=== PATIENT | female | born 1955 | race Caucasian/White ===

== ENCOUNTER 2023-01-09 10:50 | Observation (INO) | payer MEDICARE, SELFPAY ==
[2023-01-09] VITALS (10 sets, daily range): BP systolic 125–147; BP diastolic 48–95; PULSE 42–53; RESP 14–20; TEMP 36.2–36.6; O2SAT 95–99; BMI 39.6; BMI 43.2
--- NOTE | 2023-01-09 11:04 | EDS_ITS ---
HPI <MOI Naranjo - Last Filed: 01/09/23 13:23> HPI - Fall History of Present Illness Chief Complaint: Fall Narrative Narrative: 67-year-old female tripped in her kitchen 2 days ago and fell landing on her right hip. No head injury or LOC. She has been able to ambulate but is having increased pain in the hip. She also has pain in her right lower back. She has a history of multiple back surgeries. She took some old oxycodone she had which helped but she has run out. PFSH <MOI Naranjo - Last Filed: 01/09/23 13:23> [facility], [facility] Medical History (Updated 01/09/23 @ 12:52 by MOI Naranjo) History of heart attack HTN (hypertension) Home Medications gabapentin 600 mg tablet 600 mg PO QHS 05/31/15 [History Last Taken 01/08/23] levothyroxine 175 mcg tablet 175 mcg PO DAILY 05/31/15 [History Last Taken 01/09/23] sertraline 100 mg tablet 150 mg PO DAILY 05/31/15 [History Last Taken 01/08/23] aspirin 81 mg chewable tablet 81 mg PO DAILY HEART HEALTH 01/09/23 [History Last Taken 01/09/23] atorvastatin 40 mg tablet 40 mg PO DAILY CHOLESTEROL 01/09/23 [History Last Taken 01/08/23] clopidogrel 75 mg tablet 75 mg PO DAILY . 01/09/23 [History Last Taken 01/08/23] lisinopril 20 mg tablet 20 mg PO DAILY HTN 01/09/23 [History Last Taken 01/09/23] metoprolol tartrate 25 mg tablet 12.5 mg PO BID HTN 01/09/23 [History Last Taken 01/09/23] solifenacin 10 mg tablet 10 mg PO DAILY . 01/09/23 [History Last Taken 01/09/23] varenicline 1 mg tablet 1 mg PO BID . 01/09/23 [History Last Taken 01/09/23] Allergy/AdvReac Type Severity Reaction Status Date / Time adhesive Allergy Hives Verified 05/31/15 14:09 Surgical History (Updated 01/09/23 @ 11:07 by Clarissa Rosa) History of back surgery Stented coronary artery Social History Smoking Status: Former smoker ROS <MOI Naranjo - Last Filed: 01/09/23 13:23> ROS ED ROS Narrative Constitutional: Negative for fever, chills, malaise. CVS: Negative for chest pain, syncope. Respiratory: Negative for shortness of breath. GI: Negative for abdominal pain, nausea, vomiting. Neuro: Negative for motor/sensory dysfunction. Skin: Negative for wound. Musc: Positive for right hip pain, trauma. Heme: Negative for easy bruising, bleeding, lymphadenopathy. EXAM <MOI Naranjo Last Filed: 01/09/23 13:23> Physical Exam Narrative Exam Narrative: CONST: Patient sitting in no acute distress. EYES: Normal inspection. NECK: Normal inspection. RESP: No respiratory distress, CTAB. CVS: Regular rate and rhythm, no murmur, no gallop. Back: Normal inspection, no midline spinal tenderness or step-offs, right lumbar paraspinal and iliac crest tenderness. SKIN: Color normal, no rash, warm, dry, intact. EXTREMITIES: Normal appearance, tender palpation over right hip and pain with range of motion. No other tenderness of lower extremities, 5/5 strength throughout, normal sensation, 2+ DP pulses. NEURO: Oriented x4. PSYCH: Normal affect. Const Vital Signs: 01/09/23 10:50 01/09/23 11:07 01/09/23 13:14 Temperature 97.1 F L 97.8 F Temperature Source Temporal Oral Pulse Rate 50 L 43 L Respiratory Rate 20 H 15 Respiratory Effort Normal Non-Labored Blood Pressure 125/95 H 126/48 H Blood Pressure Mean 105 74 Pulse Ox 98 95 Oxygen Delivery Method Room Air <Dr. Chandra uJarez DO - Last Filed: 01/09/23 13:23> Physical Exam Const Vital Signs: 01/09/23 10:50 01/09/23 11:07 01/09/23 13:14 Temperature 97.1 F L 97.8 F Temperature Source Temporal Oral Pulse Rate 50 L 43 L Respiratory Rate 20 H 15 Respiratory Effort Normal Non-Labored Blood Pressure 125/95 H 126/48 H Blood Pressure Mean 105 74 Pulse Ox 98 95 Oxygen Delivery Method Room Air MDM <MOI Naranjo Last Filed: 01/09/23 13:23> MDM MDM Narrative Medical decision making narrative: Patient had a mechanical fall 2 days ago and is having increasing right hip and right low back pain. She has no bruising or external signs of trauma. There is tenderness over the right hip and right groin as well as right lower back. No midline spinal tenderness. Distal lower extremity MSPs are intact. X-ray right hip and pelvis show no acute fracture. After oxycodone patient was still only able to take about 5-10 steps with a walker and usually ambulates without assistive devices. She states she cannot go home as she has multiple stairs. Case will be discussed with the hospitalist for admission. I have personally performed a face to face assessment of the patient and have reviewed the SAMIRA Note. I performed a substantive portion of the visit including all aspects of the following. My aguliar findings include: History is [patient presents with complaint of right hip and back pain after sustaining a fall 2 days ago. Patient tells me she slipped in the kitchen and did the splits and fell onto her right side. She has been bearing weight but has become more painful. She took some Vicodin that she had at home for pain that seem to help her pain. She denies regular head or loss of consciousness. She denies other significant injuries. Patient is on Plavix.] Exam is [HEENT-PERRLA, EOMI. Cranial nerves II through XII grossly intact. TMs clear. Mucous membranes moist. No adenopathy. Cardiovascular-regular rate and rhythm without murmur or ectopy Lungs-clear to auscultation, chest wall stable without crepitus or subcu emphysema Abdomen-normoactive bowel sounds, soft, nontender, no rebound or rigidity, no peritoneal signs. Back exam-patient has healed scar from prior lumbar fusion. Minimal discomfort over the lumbar spine. No ecchymosis or bruising noted to her back. Patient has tenderness into the right groin. Extremities-right hip-patient has tenderness palpation over the right lateral hip as well as into the pubic ramus anteriorly. Patient has pain with flexion extension at the hip. Pain with logrolling. Neurovascular intact distally. Medical Decison Making [ ] Other additions or changes: [None] Radiography Diagnostic Testing: Clinical Impression(s) from Imaging Studies Hip/Pelvis X-Ray 01/09/23 11:07 IMPRESSION: 1. No visualized acute fracture or displaced bony fragment or avascular necrosis. Lumbar spine hardware with anchoring screws in the bilateral SI joints redemonstrated. Electronically Signed: Mat Mccain MD at 12:12 EST , Lumbar Spine X-Ray 01/09/23 11:09 IMPRESSION: Degenerative changes of the spine, as detailed above. Electronically Signed: Mat Mccain MD at 12:13 EST , <Dr. Chandra Juarez, DO - Last Filed: 01/09/23 13:23> [facility] Narrative Medical decision making narrative: Patient had a mechanical fall 2 days ago and is having increasing right hip and right low back pain. She has no bruising or external signs of trauma. There is tenderness over the right hip and right groin as well as right lower back. No midline spinal tenderness. Distal lower extremity MSPs are intact. X-ray right hip and pelvis show no acute fracture. After oxycodone patient was still only able to take about 5-10 steps with a walker and usually ambulates without assistive devices. She states she cannot go home as she has multiple stairs. Case will be discussed with the hospitalist for admission. I have personally performed a face to face assessment of the patient and have reviewed the SAMIRA Note. I performed a substantive portion of the visit including all aspects of the following. My aguilar findings include: History is [patient presents with complaint of right hip and back pain after sustaining a fall 2 days ago. Patient tells me she slipped in the kitchen and did the splits and fell onto her right side. She has been bearing weight but has become more painful. She took some Vicodin that she had at home for pain that seem to help her pain. She denies regular head or loss of consciousness. She denies other significant injuries. Patient is on Plavix.] Exam is [HEENT-PERRLA, EOMI. Cranial nerves II through XII grossly intact. TMs clear. Mucous membranes moist. No adenopathy. Cardiovascular-regular rate and rhythm without murmur or ectopy Lungs-clear to auscultation, chest wall stable without crepitus or subcu emphysema Abdomen-normoactive bowel sounds, soft, nontender, no rebound or rigidity, no peritoneal signs. Back exam-patient has healed scar from prior lumbar fusion. Minimal discomfort over the lumbar spine. No ecchymosis or bruising noted to her back. Patient has tenderness into the right groin. Extremities-right hip-patient has tenderness palpation over the right lateral hip as well as into the pubic ramus anteriorly. Patient has pain with flexion extension at the hip. Pain with logrolling. Neurovascular intact distally. Medical Decison Making [patient had x-rays of the lumbar spine as well as right hip and pelvis and no fractures noted. Patient did receive [place] 1 tablet. We attempted to ambulate the patient with a walker and normally she walks without any assistance however she was limited in being able to bear weight and was unable to walk to the bathroom. Patient does not feel comfortable going home as she has steps and does not feel she can manage. Case was discussed with hospitalist to evaluate patient for admission. I suspect patient may have a groin strain. Patient also noted to be bradycardic in the emergency department and she has a chronic history of this and states that normally her heart rates in the upper 40s.] Other additions or changes: [None] Radiography Diagnostic Testing: Clinical Impression(s) from Imaging Studies Hip/Pelvis X-Ray 01/09/23 11:07 IMPRESSION: 1. No visualized acute fracture or displaced bony fragment or avascular necrosis. Lumbar spine hardware with anchoring screws in the bilateral SI joints redemonstrated. Electronically Signed: Mat Mccain MD at 12:12 EST , Lumbar Spine X-Ray 01/09/23 11:09 IMPRESSION: Degenerative changes of the spine, as detailed above. Electronically Signed: Mat Mccain MD at 12:13 EST , Three-view x-rays right hip and pelvis obtained interpreted by myself as no acute fractures. Radiology was in agreement. Three-view x-rays of lumbar spine obtained interpreted by myself as prior lumbar fusion with no evidence of dislodgment of hardware. No obvious fractures. Significant degenerative changes. Radiology was in agreement. Discharge Plan Triage Chief Complaint: Fall ED Midlevel Provider: Maya Zambrano ED Provider: Chandra Juarez Dx/Rx/DC Orders Clinical Impression: Acute right hip pain, Strain of right groin, Accident due to mechanical fall without injury Prescriptions: No Action levothyroxine 175 MCG tablet 175 mcg PO DAILY gabapentin 600 MG tablet 600 mg PO QHS sertraline 100 MG tablet 150 mg PO DAILY atorvastatin 40 mg tablet 40 mg PO DAILY lisinopril 20 mg tablet 20 mg PO DAILY clopidogrel 75 mg tablet 75 mg PO DAILY aspirin 81 mg Tablet,Chewable 81 mg PO DAILY metoprolol tartrate 25 mg tablet 12.5 mg PO BID solifenacin 10 mg tablet 10 mg PO DAILY varenicline 1 mg tablet 1 mg PO BID Primary Care Provider: Meme Christie Referrals: Meme Christie MD [Primary Care Provider] -
--- NOTE | 2023-01-09 11:07 | RAD_ITS ---
STUDY: X-RAY - PELVIS AND RIGHT HIP REASON FOR EXAM: Female, 67 years old. Injury/Pain TECHNIQUE: 3 views of the pelvis and hip. COMPARISON: None. FINDINGS: No visualized acute fracture or displaced bony fragment or avascular necrosis. Lumbar spine hardware with anchoring screws in the bilateral SI joints redemonstrated. There is a non-specific bowel gas pattern. Normal visualized soft tissue structures. Normal bilateral iliac wings, sacroiliac joints and visualized sacrum. Normal bilateral superior and inferior pubic rami. There is narrowing with sclerosis of the pubic symphysis. Normal bilateral ischial tuberosities. Normal visualized femoral head. Normal acetabulum. There is mild articular joint space narrowing of the hip. RAD/HIP, UNI W/ Pelvis 2-3 Views IMPRESSION: 1. No visualized acute fracture or displaced bony fragment or avascular necrosis. Lumbar spine hardware with anchoring screws in the bilateral SI joints redemonstrated. Electronically Signed: Mat Mccain MD at 12:12 EST ,
--- NOTE | 2023-01-09 11:09 | RAD_ITS ---
STUDY: X-RAY - LUMBAR SPINE REASON FOR EXAM: Female, 67 years old. back pain TECHNIQUE: 2 view(s) of the lumbar spine were obtained. COMPARISON: None FINDINGS: Normal lumbar lordosis. There is no substantial scoliosis. There is a normal alignment of the vertebrae. Posterior fusion rods and pedicle screws with interbody grafts are present from L2 down to the lumbosacral junction with anchoring screws seen in the bilateral SI joints. No visualized hardware complications or displacement. Posterior decompressive defects noted as well as intertransverse bone graft. Mild disc space narrowing is present at L2-L3. Moderate disc space narrowing is present at T12-L1 and L1-L2 with reactive endplate sclerosis and spurring. No fracture or compression deformity or aggressive abnormality is seen. The soft tissue structures are unremarkable. RAD/Lumbar Spine 2 or 3 Views IMPRESSION: Degenerative changes of the spine, as detailed above. Electronically Signed: Mat Mccain MD at 12:13 EST ,
[2023-01-09] MEDS: oxyCODONE 5 MG Tablet PO ×2 (11:12→15:08)
--- NOTE | 2023-01-09 13:48 | PCM.HP.STD ---
HPI - General General Date of Admission: 01/09/23 Date of Service: 01/09/23 Chief Complaint: Fall HPI Narrative RITCHIE QUEEN, is a 67 F w/ hx of pulm HTN, CAD s/p PCI, history of back surgery, R shoulder and bilat knee surgery, as well as ISAMAR who presented to [facility] 01/09/23 due to increasing right hip and groin pain. She had a fall in her kitchen 2 days ago with socks on and reports she slipped and hit her right side and almost did the splits. In the ED she had lumbar and hip x-rays which showed no acute changes and hospitalist consulted for admission for placement. Evaluated in ED. She does endorse the fall 2 days ago and reports her pain in her groin radiates to her but it has been getting worse and is sharp mostly with her moving around and not very significant when she is laying still. Denies any changes in bowel or bladder. Has some deferred sensation below the knee on the right side but reports that that is been chronic since she got nerve damage after her surgery. Has a little bit of paraspinal back pain on the right but no other acute back pain. Denied hitting her head when she fell and denied loss of consciousness and reports it is purely mechanical fall. Has a lot of pain with internally rotating hip and is lying with it out. Has additional unrelated complaints of chronic shortness of breath with worsening since October when she had some kind of viral illness and reports this is waxed and waned and she has been on multiple prednisone bursts and her third round of antibiotics. Follows Dr. Layla Rangel for pulm and reports a history of pulmonary hypertension. [facility] Medical History (Updated 01/09/23 @ 14:[address] Michelle Gutiérrez MD) CAD (coronary artery disease) History of heart attack HTN (hypertension) Hypothyroidism Pulmonary HTN Home Medications gabapentin 600 mg tablet 600 mg PO QHS 05/31/15 [History Last Taken 01/08/23] levothyroxine 175 mcg tablet 175 mcg PO DAILY 05/31/15 [History Last Taken 01/09/23] sertraline 100 mg tablet 150 mg PO DAILY 05/31/15 [History Last Taken 01/08/23] albuterol sulfate 90 mcg/actuation aerosol inhaler 2 puff inhalation Q4H PRN PRN BREATHING 01/09/23 [History Last Taken Unknown] aspirin 81 mg chewable tablet 81 mg PO DAILY HEART HEALTH 01/09/23 [History Last Taken 01/09/23] atorvastatin 40 mg tablet 40 mg PO DAILY CHOLESTEROL 01/09/23 [History Last Taken 01/08/23] budesonide-formoterol HFA 160 mcg-4.5 mcg/actuation aerosol inhaler (Symbicort) 2 puff inhalation BID . 01/09/23 [History Last Taken 01/09/23] clopidogrel 75 mg tablet 75 mg PO DAILY . 01/09/23 [History Last Taken 01/08/23] doxycycline hyclate 100 mg capsule 100 mg PO BID . 01/09/23 [History Last Taken 01/09/23] lisinopril 20 mg tablet 20 mg PO DAILY HTN 01/09/23 [History Last Taken 01/09/23] metoprolol tartrate 25 mg tablet 12.5 mg PO BID HTN 01/09/23 [History Last Taken 01/09/23] prednisone 10 mg tablet See Rx Instructions .Route .COMPLEX . 01/09/23 [History Last Taken 01/09/23] solifenacin 10 mg tablet 10 mg PO DAILY . 01/09/23 [History Last Taken 01/09/23] varenicline 1 mg tablet 1 mg PO BID . 01/09/23 [History Last Taken 01/09/23] Allergy/AdvReac Type Severity Reaction Status Date / Time adhesive Allergy Hives Verified 05/31/15 14:09 Surgical History (Updated 01/09/23 @ 11:07 by Clarissa Rosa) History of back surgery Stented coronary artery Social History Smoking Status: Former smoker ROS ROS Narrative General: Chills sometimes HENT: Headaches for 6 months, slight stuffiness EYES: Wears glasses Resp: Productive cough with shortness of breath since October Cardiac: Denies chest pain GI: Denies abdominal pain, denies changes in bowel, denies nausea, denies vomiting : Denies changes in urination Extremity: Denies swelling MSK: General weakness Neuro: Has some decreased sensation on the right leg below the knee which she said is after her knee surgery Heme: Denies any bleeding or bruising Skin: Denies rashes Psychiatric: No complaints voiced Vital Signs Vital Signs Vital Signs: 01/09/23 10:50 01/09/23 11:07 01/09/23 13:14 Temperature 97.1 F L 97.8 F Temperature Source Temporal Oral Pulse Rate 50 L 43 L Respiratory Rate 20 H 15 Respiratory Effort Normal Non-Labored Blood Pressure 125/95 H 126/48 H Blood Pressure Mean 105 74 Pulse Ox 98 95 Oxygen Delivery Method Room Air 01/09/23 13:23 Temperature 97.8 F Temperature Source Oral Pulse Rate 43 L Respiratory Rate 15 Respiratory Effort Blood Pressure 126/48 H Blood Pressure Mean 74 Pulse Ox 98 Oxygen Delivery Method Room Air Weight Weight: 98.43 kg Body Mass Index (BMI) 39.6 Physical Exam Narrative General: Alert, oriented, no apparent distress HEENT: Atraumatic, normocephalic Eyes: Anicteric, normal conjunctiva, extraocular movements grossly intact Neck: Supple Respiratory: Slight increased respiratory effort, has some diffuse wheezing Cardiovascular: Regular rate and rhythm GI: Soft, nontender, nondistended Extremities: No edema Musculoskeletal: Laying in bed with left leg straight and right leg externally rotated at the hip, able to completely rotated internally but does so carefully and with significant pain. Unable to test strength due to pain. Pain improved with Riax internally rotating. Does have pain on palpation of groin. Neuro: No overt focal neurological deficits Skin: No rashes appreciated Psych: Cooperative Results Radiology Impression Hip/Pelvis X-Ray 01/09/23 11:07 IMPRESSION: 1. No visualized acute fracture or displaced bony fragment or avascular necrosis. Lumbar spine hardware with anchoring screws in the bilateral SI joints redemonstrated. Electronically Signed: Mat Mccain MD at 12:12 EST Reading Location ID and State: [facility] / [place] , Service support , Lumbar Spine X-Ray 01/09/23 11:09 IMPRESSION: Degenerative changes of the spine, as detailed above. Electronically Signed: Mat Mccain MD at 12:13 EST , Assessment & Plan Assessment/Plan (1) Acute right hip pain: PLAN: Plan #Intractable right hip pain after fall -X-ray hip and pelvis is well as lumbar spine with no acute changes -We will obtain MRI, patient has been on steroid bursts for several months and additionally has difficulty internally rotating hip and has significant difficulty bearing weight -Possible Ortho consult pending results -We will schedule Tylenol and as needed pain medication -Takes Robaxin as needed at home, will continue as needed Robaxin -Has some right paraspinal pain as well, will add topical -PT/OT #Coronary disease status post PCI -Most recent stent roughly 2 years ago -Continue beta-shai, aspirin, Plavix, statin #Pulmonary hypertension and ISAMAR -Continue home medications -BiPAP nightly with 2 L of O2 at home -Follows with Dr. Layla Rangel with [facility] on an outpatient basis #Upper respiratory symptoms -Has been on multiple prednisone burst and antibiotics without improvement in symptoms -Continue present prednisone dose and doxycycline Nebs #Hypothyroidism -TSH in the a.m. -Levothyroxine #Tobacco abuse -Recently quit is on Chantix, will continue #DVT ppx: Lovenox Michelle Gutiérrez MD Time spent in the patient's overall evaluation,decision-making process, review of diagnostic data, adjustment of management, discussion with other providers, nursing nursing and ancillary staff involved in patient's care documentation, 60 minutes Charges/Coding Visit Charges Inpatient E&M: 74370 Init Hosp L2
[2023-01-09 15:07] LABS: Absolute Lymphocyte Count 1.22 X10^3/uL (0.83-4.51); Absolute Neutrophil Count 5.5 X10^3/uL (2.0-7.7); Basophil# 0.03 X10^3/uL; Basophil% 0.4 % (0-1); Eosinophil# 0.06 X10^3/uL; Eosinophils% 0.8 % (0-5); Hemoglobin 12.9 g/dL (12.0-15.0); Lymphocyte # 1.22 X10^3/ul (0.83-4.51); Lymphocyte % 16.5 % (19-41); Mean Corp Hgb Conc 33.9 g/dL (32-36); Mean Corpuscular Hgb 33.7 pg (27.0-32.0); Mean Corpuscular Volume 99.2 fL (81-99); Monocyte% 6.8 % (0-10); NRBC Flagged by Analyzer 0 % (0-5); Neutrophil % 74.4 % (47-70); Platelet Count 169 K/mm3 (150-450); RBC Distribution Width CV 13.6 % (11.6-14.6); RBC Distribution Width SD 49.8 fl (35.1-43.9); Red Blood Count 3.83 M/mm3 (4.2-5.4); White Blood Count 7.4 K/mm3 (4.4-11.0)
[2023-01-09] MEDS: Acetaminophen 500 MG Tablet 1000 MG PO ×2 (15:08→22:20)
[2023-01-09] MEDS: Methocarbamol 750 MG Tablet PO (15:08)
[2023-01-09 15:24] LABS: ALB/GLOB Ratio 1.2 RATIO (0.9-2.4); AST(SGOT) 29 U/L (15-37); Alanine Aminotransfer ALT/SGPT 48 U/L (13-56); Albumin, Serum 3.5 g/dL (3.2-5.0); Alkaline Phosphatase 107 U/L (45-117); Anion Gap 7 (5-15); BUN 27 mg/dL (7-18); BUN/Creat Ratio 26.7 RATIO (10-20); Calcium,Total 9.4 mg/dL (8.5-10.1); Chloride 108 mmol/L (98-107); Creatinine, Serum 1.01 mg/dL (0.55-1.02); EST Glomerular Filtration Rate 58 mL/min (>60); Est Glom Filt Rate - Afr Amer 70 mL/min (>60); Estimated Creatinine Clearance 42.16 ml/min; Globulin 2.9 g/dL (2.2-4.2); Glucose 126 mg/dL (74-106); Magnesium 2.1 mg/dL (1.6-2.6); Potassium 4.7 mmol/L (3.5-5.1); Protein, Total 6.4 g/dL (6.4-8.2); Sodium Level 138 mmol/L (136-145)
[2023-01-09] MEDS: Ipratropium/Albuterol Sulfate 3 ML AMPUL.NEB INHALATION (20:05)
[2023-01-09] MEDS: Arthritis Pain Compound 60 CLICK TUBE TOPICAL (22:19)
[2023-01-09] MEDS: Doxycycline 100 MG CAPSULE PO (22:20)
[2023-01-09] MEDS: Atorvastatin Calcium 40 MG Tablet PO (22:20)
[2023-01-09] MEDS: Gabapentin 600 MG Tablet PO (22:20)
[2023-01-09] MEDS: Varenicline 1 MG Tablet PO (22:20)
[2023-01-10] VITALS (13 sets, daily range): BP systolic 122–148; BP diastolic 51–58; PULSE 41–62; RESP 14–20; TEMP 36.1–36.7; O2SAT 93–98
[2023-01-10] MEDS: Arthritis Pain Compound 60 CLICK TUBE TOPICAL ×3 (04:55→21:56)
[2023-01-10] MEDS: Levothyroxine 175 MCG Tablet PO (04:55)
[2023-01-10] MEDS: Acetaminophen 500 MG Tablet 1000 MG PO ×3 (04:55→21:55)
[2023-01-10] MEDS: 0.9% Saline Lock 10 ML Syringe IV ×4 (04:56→21:56)
[2023-01-10 05:28] LABS: Absolute Lymphocyte Count 3.05 X10^3/uL (0.83-4.51); Absolute Neutrophil Count 4.1 X10^3/uL (2.0-7.7); Basophil# 0.04 X10^3/uL; Basophil% 0.5 % (0-1); Eosinophil# 0.14 X10^3/uL; Eosinophils% 1.8 % (0-5); Hematocrit 40.2 % (37-47); Hemoglobin 13.4 g/dL (12.0-15.0); Lymphocyte # 3.05 X10^3/ul (0.83-4.51); Lymphocyte % 38.1 % (19-41); Mean Corp Hgb Conc 33.3 g/dL (32-36); Mean Corpuscular Hgb 33.6 pg (27.0-32.0); Mean Corpuscular Volume 100.8 fL (81-99); Mean Platelet Vol. 10.9 fl (6.2-12.0); Monocyte# 0.56 X10^3/uL; NRBC Flagged by Analyzer 0 % (0-5); Neutrophil # 4.08 X10^3/uL (2.7-7.7); Platelet Count 183 K/mm3 (150-450); RBC Distribution Width CV 13.8 % (11.6-14.6); RBC Distribution Width SD 51.4 fl (35.1-43.9); Red Blood Count 3.99 M/mm3 (4.2-5.4)
[2023-01-10 05:52] LABS: Anion Gap 8 (5-15); BUN 30 mg/dL (7-18); BUN/Creat Ratio 28.6 RATIO (10-20); Calcium,Total 9.4 mg/dL (8.5-10.1); Chloride 109 mmol/L (98-107); Creatinine, Serum 1.05 mg/dL (0.55-1.02); EST Glomerular Filtration Rate 55 mL/min (>60); Est Glom Filt Rate - Afr Amer 67 mL/min (>60); Estimated Creatinine Clearance 40.56 ml/min; Glucose 104 mg/dL (74-106); Potassium 4.1 mmol/L (3.5-5.1); Sodium Level 140 mmol/L (136-145); Thyroid Stim Hormone (TSH) 1.36 uIU/mL (0.358-3.74)
--- NOTE | 2023-01-10 07:00 | EKG12_ITS ---
Test Reason : Blood Pressure : / mmHG Vent. Rate : 043 BPM Atrial Rate : 043 BPM P-R Int : 166 ms QRS Dur : 086 ms QT Int : 502 ms P-R-T Axes : 006 054 039 degrees QTc Int : 424 ms Marked sinus bradycardia Confirmed by JOANN SR, MADAI ([id number]), copy editor CLAIRE JENSEN ([id number]) on 01/12/2023 8:03:31 AM Referred By: AMBAR Confirmed By:MADAI DAVID MD
--- NOTE | 2023-01-10 07:03 | PN.HOSP_ITS ---
Reason for Visit Reason for Visit: Diagnoses Pain in right hip (01/09/23) Subjective Subjective Still having a lot of pain and intermittently still has headache which she has had for 6 months. Denies change in pain. Reports she does not think her breathing is any different. Objective Data Objective Data Vital Signs: Vital Signs Temp Pulse Resp BP Pulse Ox O2 Del Method FiO2 96.9 F L 43 L 20 H 148/54 H 97 Room Air 25 01/10/23 04:59 01/10/23 04:59 01/10/23 04:59 01/10/23 04:59 01/10/23 04:59 01/10/23 04:59 01/10/23 02:28 Oxygen Delivery Method Room Air Weight: 107.139 kg Body Mass Index (BMI) 43.2 Intake & Output: Intake and Output for Last 24 Hours 01/08/23 01/09/23 01/10/23 23:59 23:59 23:59 Intake Total 100 / 100 Output Total 900 / 900 Balance -800 / -800 Lab / Micro Data Result Diagrams: 01/10/23 05:15 01/10/23 05:15 Labs: Laboratory Results - last 24 hr 01/09/23 14:50: WBC 7.4, RBC 3.83 L, Hgb 12.9, Hct 38.0, MCV 99.2 H, MCH 33.7 H, MCHC 33.9, RDW Std Deviation 49.8 H, RDW Coeff of Arti 13.6, Plt Count 169, MPV 11.0, Immature Gran % (Auto) 1.100 H, Neut % (Auto) 74.4 H, Lymph % (Auto) 16.5 L, [place]oul[place] % (Auto) 6.8, Eos % (Auto) 0.8, Baso % (Auto) 0.4, Absolute Neuts (auto) 5.5, Absolute Lymphs (auto) 1.22, Nucleated RBC % 0 01/09/23 14:50: Sodium 138, Potassium 4.7, Chloride 108 H, Carbon Dioxide 23.0, Anion Gap 7, BUN 27 H, Creatinine 1.01, Estim Creat Clear Calc 42.16, Est GFR (MDRD) Af Amer 70, Est GFR (MDRD) Non-Af 58 L, BUN/Creatinine Ratio 26.7 H, Glucose 126 H, Calcium 9.4, Magnesium 2.1, Total Bilirubin 0.40, AST 29, ALT 48, Alkaline Phosphatase 107, Total Protein 6.4, Albumin 3.5, Globulin 2.9, Albumin/Globulin Ratio 1.2 01/10/23 05:15: WBC 8.0, RBC 3.99 L, Hgb 13.4, Hct 40.2, MCV 100.8 H, MCH 33.6 H , MCHC 33.3, RDW Std Deviation 51.4 H, RDW Coeff of Arti 13.8, Plt Count 183, MPV 10.9, Immature Gran % (Auto) 1.600 H, Neut % (Auto) 51.0, Lymph % (Auto) 38.1, [place] % (Auto) 7.0, Eos % (Auto) 1.8, Baso % (Auto) 0.5, Absolute Neuts (auto) 4.1, Absolute Lymphs (auto) 3.05, Nucleated RBC % 0 01/10/23 05:15: Sodium 140, Potassium 4.1, Chloride 109 H, Carbon Dioxide 23.0, Anion Gap 8, BUN 30 H, Creatinine 1.05 H, Estim Creat Clear Calc 40.56, Est GFR (MDRD) Af Amer 67, Est GFR (MDRD) Non-Af 55 L, BUN/Creatinine Ratio 28.6 H, Glucose 104, Calcium 9.4, TSH 1.36 Radiography Diagnostic Testing: Radiology Impression Hip/Pelvis X-Ray 01/09/23 11:07 IMPRESSION: 1. No visualized acute fracture or displaced bony fragment or avascular necrosis. Lumbar spine hardware with anchoring screws in the bilateral SI joints redemonstrated. Electronically Signed: Mat Mccain MD at 12:12 EST Reading Location ID and State: [address] [place] [address] , Service support , Lumbar Spine X-Ray 01/09/23 11:09 IMPRESSION: Degenerative changes of the spine, as detailed above. Electronically Signed: Mat Mccain MD at 12:13 EST , Physical Exam Narrative General: Alert, oriented, appears uncomfortable, just being wheeled back from MRI HEENT: Atraumatic, normocephalic Eyes: Anicteric, normal conjunctiva, extraocular movements grossly intact Neck: Supple Respiratory: Slight increased respiratory effort, has some diffuse wheezing Cardiovascular: Regular rate and rhythm GI: Soft, nontender, nondistended Extremities: No edema Musculoskeletal: Still has pain with movement of her hip Neuro: No overt focal neurological deficits Skin: No rashes appreciated Psych: Cooperative Assessment & Plan Assessment/Plan (1) Acute right hip pain: PLAN: Plan #Intractable right hip pain after fall -X-ray hip and pelvis is well as lumbar spine with no acute changes -We will obtain MRI, patient has been on steroid bursts for several months and additionally has difficulty internally rotating hip and has significant difficul ty bearing weight -Possible Ortho consult pending results -We will schedule Tylenol and as needed pain medication -Takes Robaxin as needed at home, will continue as needed Robaxin -Has some right paraspinal pain as well, will add topical -PT/OT -3: Pain control, MRI of her hip ordered and she has stress fracture/injury of bilateral femoral necks. Orthopedic consulted #Coronary disease status post PCI -Most recent stent roughly 2 years ago -Continue beta-shai, aspirin, Plavix, statin -01/10: EKG ordered due to heart rate persistently in 40s and metoprolol has holding parameters. Asymptomatic, EKG showed sinus bradycardia with no blocks. #Pulmonary hypertension and ISAMAR -Continue home medications -BiPAP nightly with 2 L of O2 at home -Follows with Dr. Layla Rangel with [facility] on an outpatient basis #Upper respiratory symptoms -Has been on multiple prednisone burst and antibiotics without improvement in symptoms -Continue present prednisone taper and doxycycline -Nebs #Hypothyroidism -TSH within normal limits -Levothyroxine #Tobacco abuse -Recently quit is on Chantix, will continue #DVT ppx: Lovenox Michelle Gutiérrez MD Time spent in the patient's overall evaluation,decision-making process, review of diagnostic data, adjustment of management, discussion with other providers, nursing nursing and ancillary staff involved in patient's care documentation, 36 minutes Charges/Coding Visit Charges Inpatient E&M: 37142 Subs Hosp L2
[2023-01-10] MEDS: Albuterol 2.5 MG/3 ML VIAL.NEB. INHALATION (07:39)
[2023-01-10] MEDS: oxyCODONE 5 MG Tablet PO ×2 (10:22→17:53)
[2023-01-10] MEDS: Aspirin 81 MG TAB.CHEW PO (10:22)
[2023-01-10] MEDS: Lisinopril 20 MG Tablet PO (10:22)
[2023-01-10] MEDS: Tolterodine Tartrate 4 MG CAP.SA PO (10:22)
[2023-01-10] MEDS: Doxycycline 100 MG CAPSULE PO ×2 (10:22→21:55)
[2023-01-10] MEDS: Clopidogrel Bisulfate 75 MG Tablet PO (10:22)
[2023-01-10] MEDS: Methocarbamol 750 MG Tablet PO ×2 (10:22→17:53)
[2023-01-10] MEDS: Enoxaparin 40 MG/0.4 ML Syringe SC (10:23)
[2023-01-10] MEDS: Varenicline 1 MG Tablet PO ×2 (10:23→21:55)
[2023-01-10] MEDS: Sertraline 100 MG Tablet 150 MG PO (10:23)
[2023-01-10] MEDS: predniSONE 10 MG Tablet PO (10:24)
[2023-01-10] MEDS: Senna/Docusate Sodium 1 Tablet 2 TABLET PO (10:26)
--- NOTE | 2023-01-10 10:45 | MRI_ITS ---
STUDY: MRI RIGHT HIP REASON FOR EXAM: Female, 67 years old. Severe RIGHT hip pain, unable to bear weight TECHNIQUE: Standardized fat and water weighted pulse sequences were obtained in all 3 orthogonal planes. COMPARISON: X-ray from January 09, 2023 FINDINGS: Normal hip joint without articular joint space narrowing. There is small joint effusion. Normal acetabulum. Normal labrum. Normal femoral head. There is marrow edema of the right and left femoral necks, series 2 image 23/40. Normal gluteus minimus, medius and iliopsoas tendons and distal insertions. There is no trochanteric, iliopsoas or iliopectineal bursitis. Normal superior and inferior pubic rami. There is arthritic change at the pubic symphysis. Normal ischial tuberosity. Normal origin of the hamstring tendons. Normal visualized iliac wing, sacroiliac joint, and sacral ala. Normal visualized soft tissue structures of the pelvis. Uterus is atrophic. Normal bladder. There is postoperative change of the lower lumbar spine with hardware and screws extending across the bilateral sacroiliac joints. MRI/Lower Ext Joint Only (Routine) IMPRESSION: Stress fracture/injury of the bilateral femoral necks. Electronically Signed: Jimmy Kumar MD at 12:17 EST ,
[2023-01-10] MEDS: Lactated Ringers 1,000 ML 75 ML IV (11:52)
[2023-01-10] MEDS: Ipratropium/Albuterol Sulfate 3 ML AMPUL.NEB INHALATION ×2 (13:54→19:13)
[2023-01-10] MEDS: Atorvastatin Calcium 40 MG Tablet PO (21:55)
[2023-01-10] MEDS: Pramipexole Di-HCl 1 MG Tablet PO (21:55)
[2023-01-10] MEDS: Gabapentin 600 MG Tablet PO (21:55)
[2023-01-11] VITALS (11 sets, daily range): BP systolic 103–148; BP diastolic 49–66; PULSE 45–61; RESP 14–22; TEMP 36.4–36.8; O2SAT 21–98
[2023-01-11 05:26] LABS: Absolute Lymphocyte Count 1.83 X10^3/uL (0.83-4.51); Absolute Neutrophil Count 5.4 X10^3/uL (2.0-7.7); Basophil# 0.02 X10^3/uL; Basophil% 0.3 % (0-1); Eosinophil# 0.08 X10^3/uL; Hematocrit 37.3 % (37-47); Hemoglobin 12.4 g/dL (12.0-15.0); Lymphocyte # 1.83 X10^3/ul (0.83-4.51); Lymphocyte % 22.9 % (19-41); Mean Corp Hgb Conc 33.2 g/dL (32-36); Mean Corpuscular Hgb 33.5 pg (27.0-32.0); Mean Corpuscular Volume 100.8 fL (81-99); Mean Platelet Vol. 10.9 fl (6.2-12.0); Monocyte# 0.57 X10^3/uL; Monocyte% 7.1 % (0-10); NRBC Flagged by Analyzer 0 % (0-5); Neutrophil # 5.43 X10^3/uL (2.7-7.7); Neutrophil % 67.8 % (47-70); Platelet Count 177 K/mm3 (150-450); RBC Distribution Width CV 13.7 % (11.6-14.6); RBC Distribution Width SD 51.2 fl (35.1-43.9)
[2023-01-11] MEDS: Acetaminophen 500 MG Tablet 1000 MG PO ×2 (05:29→13:38)
[2023-01-11] MEDS: Levothyroxine 175 MCG Tablet PO (05:29)
[2023-01-11] MEDS: Arthritis Pain Compound 60 CLICK TUBE TOPICAL ×2 (05:29→13:38)
[2023-01-11 05:59] LABS: Anion Gap 7 (5-15); BUN 29 mg/dL (7-18); BUN/Creat Ratio 28.4 RATIO (10-20); Calcium,Total 9.3 mg/dL (8.5-10.1); Chloride 111 mmol/L (98-107); Creatinine, Serum 1.02 mg/dL (0.55-1.02); EST Glomerular Filtration Rate 57 mL/min (>60); Est Glom Filt Rate - Afr Amer 69 mL/min (>60); Estimated Creatinine Clearance 41.75 ml/min; Glucose 108 mg/dL (74-106); Potassium 4.1 mmol/L (3.5-5.1); Sodium Level 143 mmol/L (136-145)
[2023-01-11] MEDS: Ipratropium/Albuterol Sulfate 3 ML AMPUL.NEB INHALATION ×2 (06:49→13:14)
[2023-01-11] MEDS: Aspirin 81 MG TAB.CHEW PO (08:31)
[2023-01-11] MEDS: predniSONE 10 MG Tablet PO (08:31)
[2023-01-11] MEDS: oxyCODONE 5 MG Tablet PO ×2 (08:33→13:40)
[2023-01-11] MEDS: Methocarbamol 750 MG Tablet PO (08:34)
--- NOTE | 2023-01-11 09:53 | CONS.ORTHO ---
HPI Consult Data Date of Consult: 01/11/23 HPI Narrative Reason for Consultation: Right hip pain HPI Narrative: RITCHIE QUEEN, is a 67 F who presents with right hip and groin pain s/p fall on 01/07/23. X-rays in the ED were negative for fracture. However an MRI obtained by the hospitalist revealed edema of the b/l femoral necks. This would be concerning for stress fracture. She has multiple medical comorbidities, she is on Plavix among many other medications. She has a history of instrumented fusion of the lumbar spine and SI joints. She has also had right shoulder and bilateral knee procedures. At the time of my evaluation, PT was in the room. The patient was sitting up in bed. She reported no LBP. Minimal right hip pain at rest. She reported right hip/groin pain 10/10 with motion or attempted weight bearing. She denied N/T/P or radiation of the pain down the leg. COUNT INCLUDES THE [facility] Medical History CAD (coronary artery disease) History of heart attack HTN (hypertension) Hypothyroidism Pulmonary HTN Home Medications gabapentin 600 mg tablet 600 mg PO QHS 05/31/15 [History Last Taken 01/08/23] levothyroxine 175 mcg tablet 175 mcg PO DAILY 05/31/15 [History Last Taken 01/09/23] sertraline 100 mg tablet 150 mg PO DAILY 05/31/15 [History Last Taken 01/08/23] albuterol sulfate 90 mcg/actuation aerosol inhaler 2 puff inhalation Q4H PRN PRN BREATHING 01/09/23 [History Last Taken Unknown] aspirin 81 mg chewable tablet 81 mg PO DAILY HEART HEALTH 01/09/23 [History Last Taken 01/09/23] atorvastatin 40 mg tablet 40 mg PO DAILY CHOLESTEROL 01/09/23 [History Last Taken 01/08/23] budesonide-formoterol HFA 160 mcg-4.5 mcg/actuation aerosol inhaler (Symbicort) 2 puff inhalation BID . 01/09/23 [History Last Taken 01/09/23] clopidogrel 75 mg tablet 75 mg PO DAILY . 01/09/23 [History Last Taken 01/08/23] doxycycline hyclate 100 mg capsule 100 mg PO BID . 01/09/23 [History Last Taken 01/09/23] lisinopril 20 mg tablet 20 mg PO DAILY HTN 01/09/23 [History Last Taken 01/09/23] metoprolol tartrate 25 mg tablet 12.5 mg PO BID HTN 01/09/23 [History Last Taken 01/09/23] prednisone 10 mg tablet See Rx Instructions .Route .COMPLEX . 01/09/23 [History Last Taken 01/09/23] solifenacin 10 mg tablet 10 mg PO DAILY . 01/09/23 [History Last Taken 01/09/23] varenicline 1 mg tablet 1 mg PO BID . 01/09/23 [History Last Taken 01/09/23] ropinirole 2 mg tablet,extended release 24 hr 2 mg PO QHS 01/10/23 [History Last Taken Unknown] Allergy/AdvReac Type Severity Reaction Status Date / Time adhesive Allergy Hives Verified 05/31/15 14:09 Surgical History History of back surgery Stented coronary artery Social History Smoking Status: Former smoker ROS Constitutional Constitutional: Reports systems reviewed and no addt'l complaints, except as documented Eyes Eyes: Reports systems reviewed and no addt'l complaints, except as documented ENT HEENT: Reports systems reviewed and no addt'l complaints, except as documented Cardiovascular Cardiovascular: Reports systems reviewed and no addt'l complaints, except as documented Respiratory/Chest Respiratory/Chest: Reports systems reviewed and no addt'l complaints, except as documented Gastrointestinal Gastrointestinal: Reports systems reviewed and no addt'l complaints, except as documented Genitourinary Genitourinary: Reports systems reviewed and no addt'l complaints, except as documented Musculoskeletal Musculoskeletal: Reports systems reviewed and no addt'l complaints, except as documented Integumentary Integumentary: Reports systems reviewed and no addt'l complaints, except as documented Neurologic Neurologic: Reports systems reviewed and no addt'l complaints, except as documented Psychiatric Psychiatric: Reports systems reviewed and no addt'l complaints, except as documented Endocrine Endocrinology: Reports systems reviewed and no addt'l complaints, except as documented Hematologic/Lymphatic Hematologic/Lymphatic: Reports systems reviewed and no addt'l complaints, except as documented Allergic/Immunologic Allergic/Immunologic: Reports systems reviewed and no addt'l complaints, except as documented Vital Signs Vital Signs Vital Signs: 01/10/23 10:16 01/10/23 10:18 01/10/23 14:28 Temperature 97.3 F L 98.0 F Temperature Source Temporal Oral Pulse Rate 54 L 54 L 58 L Respiratory Rate 18 18 Respiratory Effort Respiratory Depth Respiratory Pattern Blood Pressure 124/51 H 127/58 H Blood Pressure Mean 75 81 Blood Pressure Source Monitor Monitor Blood Pressure Position Sitting Semi-Fowlers Blood Pressure Location Left Arm Left Arm Pulse Ox 96 93 Oxygen Delivery Method Room Air Room Air Fraction of Inspired Oxygen (FIO2) 01/10/23 14:28 01/10/23 13:54 01/10/23 19:14 Temperature Temperature Source Pulse Rate 62 54 L Respiratory Rate 17 20 H Respiratory Effort Normal Respiratory Depth Respiratory Pattern Normal Normal Blood Pressure Blood Pressure Mean Blood Pressure Source Blood Pressure Position Blood Pressure Location Pulse Ox Oxygen Delivery Method Fraction of Inspired Oxygen (FIO2) 01/10/23 19:15 01/10/23 21:51 01/10/23 21:56 Temperature 97.5 F L Temperature Source Oral Pulse Rate 53 L 53 L Respiratory Rate 18 Respiratory Effort Respiratory Depth Respiratory Pattern Blood Pressure 122/54 H 122/54 H Blood Pressure Mean 76 Blood Pressure Source Monitor Blood Pressure Position Semi-Fowlers Blood Pressure Location Left Forearm Pulse Ox 96 96 Oxygen Delivery Method Room Air Room Air Fraction of Inspired Oxygen (FIO2) 01/10/23 22:00 01/11/23 04:20 01/11/23 05:28 Temperature 97.5 F L Temperature Source Temporal Pulse Rate 48 L 52 L Respiratory Rate 22 H Respiratory Effort Normal Non-Labored Respiratory Depth Normal Respiratory Pattern Normal Blood Pressure 126/63 H Blood Pressure Mean 84 Blood Pressure Source Monitor Blood Pressure Position Semi-Fowlers Blood Pressure Location Left Arm Pulse Ox 21 96 Oxygen Delivery Method Room Air Bi-pap Bi-pap Fraction of Inspired Oxygen (FIO2) 01/10/23 20:30 01/11/23 00:30 01/11/23 03:28 Temperature Temperature Source Pulse Rate 52 L 48 L 45 L Respiratory Rate 18 21 H 20 H Respiratory Effort Respiratory Depth Respiratory Pattern Normal Normal Blood Pressure Blood Pressure Mean Blood Pressure Source Blood Pressure Position Blood Pressure Location Pulse Ox 98 97 98 Oxygen Delivery Method Fraction of Inspired Oxygen (FIO2) 25 25 25 01/11/23 06:49 01/11/23 06:49 01/11/23 08:29 Temperature 97.7 F L Temperature Source Oral Pulse Rate 59 L 61 Respiratory Rate 16 20 H Respiratory Effort Respiratory Depth Respiratory Pattern Normal Blood Pressure 148/66 H Blood Pressure Mean 93 Blood Pressure Source Monitor Blood Pressure Position Semi-Fowlers Blood Pressure Location Left Arm Pulse Ox 95 96 Oxygen Delivery Method Room Air Room Air Fraction of Inspired Oxygen (FIO2) Weight Weight: 236 lb 3.2 oz Body Mass Index (BMI) 43.2 Physical Exam Const alert and oriented x3 Constitutional Narrative: NAD while lying still HEENT normocephalic, head/scalp atraumatic, EAC's normal, TM's normal bilaterally, dentition normal and gingiva normal Eyes PERRL and EOMs intact bilaterally Neck supple General: trachea midline Lymph Lymphatic: no lymphadenopathy noted and no lymphedema noted Resp normal respiratory effort and no use of accessory muscles Effort and Inspection: able to speak in complete sentences Cardio regular rate and regular rhythm GI non-tender and non-distended Extremity normal capillary refill, no clubbing, cyanosis or edema and no calf tenderness Extremity Narrative: Pain in right hip/groin with logroll, WB not attempted. Leg lengths are equal. PTP at right lateral hip and right groin. Skin no rashes or lesions noted, no wounds and skin turgor normal Neuro CN's II-XII intact bilaterally Psych mental status grossly normal Lab / Micro Data Result Diagrams: 01/11/23 05:08 01/11/23 05:08 Labs: Laboratory Results - last 24 hr 01/11/23 05:08: WBC 8.0, RBC 3.70 L, Hgb 12.4, Hct 37.3, MCV 100.8 H, MCH 33.5 H, MCHC 33.2, RDW Std Deviation 51.2 H, RDW Coeff of Arti 13.7, Plt Count 177, MPV 10.9, Immature Gran % (Auto) 0.900, Neut % (Auto) 67.8, Lymph % (Auto) 22.9, Martin % (Auto) 7.1, Eos % (Auto) 1.0, Baso % (Auto) 0.3, Absolute Neuts (auto) 5.4, Absolute Lymphs (auto) 1.83, Nucleated RBC % 0 01/11/23 05:08: Sodium 143, Potassium 4.1, Chloride 111 H, Carbon Dioxide 25.0, Anion Gap 7, BUN 29 H, Creatinine 1.02, Estim Creat Clear Calc 41.75, Est GFR (MDRD) Af Amer 69, Est GFR (MDRD) Non-Af 57 L, BUN/Creatinine Ratio 28.4 H, Glucose 108 H, Calcium 9.3 Radiology Impression Lower Extremity MRI 01/10/23 10:45 IMPRESSION: Stress fracture/injury of the bilateral femoral necks. Electronically Signed: Jimmy Kumar MD at 12:17 EST , Assessment & Plan Assessment/Plan (1) Acute right hip pain: PLAN: Plan NWB to RLE Pain mgmt. per hospitalist PT to evaluate and treat Will attempt to treat this non-operatively Follow up at [facility] 7 days post discharge
[2023-01-11] MEDS: Varenicline 1 MG Tablet PO (10:14)
[2023-01-11] MEDS: Metoprolol Tartrate 25 MG Tablet 12.5 MG PO (10:14)
[2023-01-11] MEDS: Lisinopril 20 MG Tablet PO (10:14)
[2023-01-11] MEDS: Doxycycline 100 MG CAPSULE PO (10:16)
[2023-01-11] MEDS: Clopidogrel Bisulfate 75 MG Tablet PO (10:17)
[2023-01-11] MEDS: Enoxaparin 40 MG/0.4 ML Syringe SC (10:17)
[2023-01-11] MEDS: Tolterodine Tartrate 4 MG CAP.SA PO (10:17)
--- NOTE | 2023-01-11 11:23 | DCINST_ITS ---
Discharge Instructions Diet Discharge Diet: No restrictions Activity Discharge Activity: Return to Normal Activity Weight Bearing Status: Weight bearing as tolerated Dressing / Incision Call your doctor if you observe: Fever of 101 or Higher, Coldness, Increased Pain, Numbness or Tingling, Change in Color, Inability to urinate, Inability to have a bowel movement, Using more than 1 pad per hour, Shortness of breath, Dizziness, Fainting spells, Swelling in the ankles, Chest pain, Prolonged hiccupping, Increased palpitations (irregular heartbeat) and Calf discomfort Follow Up Care When: IN 2 WEEKS Test Results: Test results from this visit will be discussed in further detail at your follow- up appointment, if applicable. Discharge Plan Admission Admit Date/Time: 01/09/23 13:54 Primary Reason for Your Visit: Stress fracture of B/L hips Attending Provider: Uriah Donnelly Primary Care Provider: Meme Christie Consulting Providers: Godfrey Daniel ; Michelle Gutiérrez Discharge Orders/Prescriptions Prescriptions: New sennosides-docusate sodium [Stool Softener-Stimulant Laxat] 8.6-50 mg Tablet 2 tab PO BID PRN PRN (Reason: Constipation) Qty: 0 0RF oxycodone 5 mg Tablet 2.5 mg PO Q4H PRN PRN (Reason: Pain Score 4-10) 3 Days Qty: 10 0RF Rx Instructions: 2.5 mg for moderate pain 4-6/10 and 5 mg for severe pain 7 to 10 mg. metaxalone 400 mg tablet 400 mg PO TID PRN (Reason: muscle pain) Qty: 14 0RF Continued levothyroxine 175 MCG tablet 175 mcg PO DAILY gabapentin 600 MG tablet 600 mg PO QHS atorvastatin 40 mg tablet 40 mg PO DAILY lisinopril 20 mg tablet 20 mg PO DAILY clopidogrel 75 mg tablet 75 mg PO DAILY aspirin 81 mg Tablet,Chewable 81 mg PO DAILY metoprolol tartrate 25 mg tablet 12.5 mg PO BID solifenacin 10 mg tablet 10 mg PO DAILY varenicline 1 mg tablet 1 mg PO BID prednisone 10 mg tablet See Rx Instructions .ROUTE .COMPLEX Label Comments: Take 4 tablets by mouth once daily for 3 days, THEN 2 tablets once daily for 3 days, THEN 1 tablet once daily for 3 days. Take with food.. Rx Instructions: Take 4 tablets by mouth once daily for 3 days, THEN 2 tablets once daily for 3 days, THEN 1 tablet once daily for 3 days. Take with food. START DATE 12/31 doxycycline hyclate 100 mg capsule 100 mg PO BID Label Comments: TAKE 1 CAPSULE BY MOUTH TWICE DAILY FOR 10 DAYS albuterol sulfate 90 mcg/actuation HFA aerosol inhaler 2 puff INHALATION Q4H PRN PRN (Reason: BREATHING) budesonide-formoterol [Symbicort] 160-4.5 mcg/actuation HFA aerosol inhaler 2 puff INHALATION BID Label Comments: inhale 2 puffs BY MOUTH TWICE DAILY ropinirole 2 mg Tablet Extended Release 24 Hr 2 mg PO QHS Held sertraline 100 MG tablet 150 mg PO DAILY Hold Instructions: Hold while patient is taking metaxalone/Skelaxin Referrals / Follow Up: Meme Christie MD [Primary Care Provider] - Godfrey Daniel DO [Med Staff - Active Staff] - Within 1 Week Disposition Disposition (needs filled in before D/C Order can be placed): Home Health Service
--- NOTE | 2023-01-11 12:04 | CASEMGMT ---
MANA EVANGELISTA Assessment: Face to Face with pt for initial transition planning/care coordination assessment. RN TONJA introduced self and role at [facility], pt voices understanding and consents to assessment. Pt is A/O x4 and answers all questions appropriately at this time. Pt sitting up in chair in no distress. Care providers, pharmacy, and demographics verified/updated. Admitting Dx: inability to ambulate, R hip pain PCP:Shahnaz Specialists:Liz, neuro; Layla Rangel, pulm; Yandy, cardio Preferred Pharmacy: [facility] Insurance: [employer] [facility] Prescription Benefit: yes LNOK: Odin Santos, Living Arrangements: Pt lives with in a single story home with 3 steps to enter without a rail. Pt reports they have 2 planks that they use for a ramp to enter the home. Pt reports she was I in ADL's prior to hospitalization and her is able to assist. Transportation: Pt drives self and denies concerns with transportation. Pt able to assist until pt able to drive again. DME/HHC/SNF: Pt has a Bipap with oxygen at 2L through [employer]. , w/c, standard walker, FWW and pox. Pt has had HHC in the past but is unsure of which agency was used. Pt denies SNF stays and states she does not want to go to a SNF. Pt states no concerns with going home at time of dc. Pt is agreeable to having HHC in the home. Discussed expectations of this. Patient was provided a list of HHC providers including quality and resource use data and consistent with the patient?s preferred geographic region, medical needs, and insurance network were provided from the [facility] Guide. Pt to review and MANA EVANGELISTA to check back. Pt states no further concerns/needs. CM to follow. Advised pt to ask CM if any further question/concerns/needs arise, voices understanding. Pt Goal: Home with HHC Plan: Home with HHC
--- NOTE | 2023-01-11 12:19 | CASEMGMT ---
Social Work SW met w/pt briefly to inquire if she would like to consider going somewhere for rehab rather than going home. Pt states no, she is going home. She also states she thinks she can go home today. SW let pt know if she changes her mind, let her RN know and SW can return to review options. Pt states understanding. ANITHA Mercedes
--- NOTE | 2023-01-11 12:30 | CASEMGMT ---
Social Work As per admitting RN, pt indicated has LW/POA paperwork but is not able to bring in the documents. Pt indicated Odin Santos is POA. ANITHA Mercedes
--- NOTE | 2023-01-11 13:37 | CASEMGMT ---
Addendum entered by Parisa Mariano 01/11/23 15:48: [facility] and [facility] are unable to accept pt. Pt is agreeable to referral made to the rest of the agencies listed. Referrals sent via careport. TC linsey Jackson at [facility], they are able to see pt on Wednesday. MANA EVANGELISTA into pt room, she is agreeable to this. Addendum entered by Parisa Mariano 01/11/23 15:08: Pt aware that the C chosen are unable to see her. Pt has chosen [facility] then [facility] as next options. Referral sent to both at this time. Addendum entered by Parisa Mariano 01/11/23 14:47: Received messages that [facility] and [facility] are unable to accept pt for care. Referral sent to [facility] at this time. Original Note: MANA EVANGELISTA in to discuss CHUNG form with patient. MANA EVANGELISTA explained CHUNG form, patient voiced understanding. Pt signed form and filed in chart. Pt provided with a copy of signed CHUNG form. Patient had no further questions or concerns at this time. Pt states she would like to dc today. Updated hospitalist. Pt chose for [facility] 1.[facility] 2.[facility] 3.[facility]. Referrals sent to [facility] and [facility] at [facility] time [facility].
--- NOTE | 2023-01-11 15:01 | PCM.DC.SUM ---
Providers Date of Admission: 01/09/23 Date of Discharge: 01/11/23 Primary Care Physician: Dr. Meme Christie MD Consultations 01/10/23 13:29 Consult: Orthopedics Routine Consulting Provider: Godfrey Daniel Reason for Consult: Stress fracture/injury of the bilateral femoral necks EMERGENT Consult: No MD Notified: Yes Date Notified: 01/10/23 Time Notified: 15:50 Method of Notification: Verbal Reason For Visit: intractable hip pain Diagnosis Discharge Diagnosis (1) Acute right hip pain: Status: Acute Code(s): M25.551 - Pain in right hip Plan This is 59-year-old female with multiple comorbidities was admitted for severe right hip and groin pain after she fell in her kitchen 2 days prior to admission. She states she slipped and almost had a split. #Intractable right hip pain after fall: -X-ray hip and pelvis is well as lumbar spine with no acute changes -MRI shows edema of bilateral femoral neck. This was concerning for a stress fracture. She has history of instrumental fusion of lumbar spine and SI joints. History of bilateral TKR and right shoulder repair. Patient also on Plavix therefore orthopedic surgeon wanted to follow-up in 1 week in [facility]. If your pain Miraluma right hip groin 7-8/10 intensity. Patient was evaluated by PT and pain got better. She wants to go home with home health. Patient discharged on oxycodone and Skelaxin. Skelaxin has Dr. Mcclure interaction with sertraline which is held while patient is taking Skelaxin. Patient also on Neurontin and ropinirole which can give dizziness. Advised to take it at night. #Coronary disease status post PCI -Most recent stent roughly 2 years ago -Continue beta-shai, aspirin, Plavix, statin EKG ordered due to heart rate persistently in 40s and metoprolol has holding parameters.? Asymptomatic, EKG showed sinus bradycardia with no blocks. 6: Heart rate is improved in 50s. #Pulmonary hypertension and ISAMAR -Continue home medications -BiPAP nightly with 2 L of O2 at home -Follows with Dr. Layla Rangel with [facility] on an outpatient basis #Upper respiratory symptoms -Has been on multiple prednisone burst and antibiotics without improvement in symptoms -Continue present prednisone taper and doxycycline -Nebs #Hypothyroidism -TSH within normal limits -Levothyroxine #Tobacco abuse -Recently quit is on Chantix, and Chantix continued. #DVT ppx: Lovenox Discharge medication reconciliation done. Discharge follow-up instructions completed. Discharge process discussed with the patient and all questions were answered to patient's satisfaction. Total time spent, exact 35 minutes on discharge meds reconciliation, examination, coordination of care with nurses and ancillary staff, review of imaging and blood test and discussion with the patient on follow-up instructions. Medications at Discharge Home Medications gabapentin 600 mg tablet 600 mg PO QHS 05/31/15 levothyroxine 175 mcg tablet 175 mcg PO DAILY 05/31/15 sertraline 100 mg tablet 150 mg PO DAILY 05/31/15 albuterol sulfate 90 mcg/actuation aerosol inhaler 2 puff inhalation Q4H PRN PRN BREATHING 01/09/23 aspirin 81 mg chewable tablet 81 mg PO DAILY HEART HEALTH 01/09/23 atorvastatin 40 mg tablet 40 mg PO DAILY CHOLESTEROL 01/09/23 budesonide-formoterol HFA 160 mcg-4.5 mcg/actuation aerosol inhaler (Symbicort) 2 puff inhalation BID . 01/09/23 clopidogrel 75 mg tablet 75 mg PO DAILY . 01/09/23 doxycycline hyclate 100 mg capsule 100 mg PO BID . 01/09/23 lisinopril 20 mg tablet 20 mg PO DAILY HTN 01/09/23 metoprolol tartrate 25 mg tablet 12.5 mg PO BID HTN 01/09/23 prednisone 10 mg tablet See Rx Instructions .Route .COMPLEX . 01/09/23 solifenacin 10 mg tablet 10 mg PO DAILY . 01/09/23 varenicline 1 mg tablet 1 mg PO BID . 01/09/23 ropinirole 2 mg tablet,extended release 24 hr 2 mg PO QHS 01/10/23 metaxalone 400 mg tablet 400 mg PO TID PRN muscle pain #14 tabs 01/11/23 oxycodone 5 mg tablet 2.5 mg PO Q4H PRN PRN Pain Score 4-10 3 days #10 tabs 01/11/23 sennosides 8.6 mg-docusate sodium 50 mg tablet (Stool Softener-Stimulant Laxative) 2 tab PO BID PRN PRN Constipation #0 tabs 01/11/23 Physical Exam Narrative Physical exam General: Alert, Oriented x3, Cooperative HEENT: Atraumatic, PERRLA, EOMI, Normocephalic Oral: Oral mucosa moist. No Gingival or Mucosal Lesions/ Ulcerations Neck: Supple, No JVD, Negative Carotid Bruits Lungs: Air entry diminished in bilateral lung bases. No crepitation/rhonchi Cardiovascular: Regular rate, Regular Rhythm, Normal S1, Normal S2, No murmurs Abdomen: Bowel Sounds Present, Soft, Non Tender, Non-Distended : No renal angle tenderness. No suprapubic tenderness. Extremities: No edema, Capillary Refill Less than 3 Seconds Skin: No rashes, No breakdown Musculoskeletal: Tenderness present over right groin and hip region. Patient participated in PT and OT. Muscle sprain present over right groin region. Neurological: Cranial nerves II-XII grossly intact, DTR 2+/4 and Symmetrical, muscle strength decreased mainly in the right hip due to pain Psych/Mental Status: Flat affect Weight / BMI Weight Weight: 236 lb 3.2 oz Body Mass Index (BMI) 43.2 ABG / Lab / Microbiology Data Result Diagrams: 01/11/23 05:08 01/11/23 05:08 Laboratory: Laboratory Results - last 24 hr 01/11/23 05:08: WBC 8.0, RBC 3.70 L, Hgb 12.4, Hct 37.3, MCV 100.8 H, MCH 33.5 H, MCHC 33.2, RDW Std Deviation 51.2 H, RDW Coeff of Arti 13.7, Plt Count 177, MPV 10.9, Immature Gran % (Auto) 0.900, Neut % (Auto) 67.8, Lymph % (Auto) 22.9, [place] % (Auto) 7.1, Eos % (Auto) 1.0, Baso % (Auto) 0.3, Absolute Neuts (auto) 5.4, Absolute Lymphs (auto) 1.83, Nucleated RBC % 0 01/11/23 05:08: Sodium 143, Potassium 4.1, Chloride 111 H, Carbon Dioxide 25.0, Anion Gap 7, BUN 29 H, Creatinine 1.02, Estim Creat Clear Calc 41.75, Est GFR (MDRD) Af Amer 69, Est GFR (MDRD) Non-Af 57 L, BUN/Creatinine Ratio 28.4 H, Glucose 108 H, Calcium 9.3 D/C Instructions Discharge Diet: No restrictions Weight Bearing Status: Weight bearing as tolerated Call your doctor if you observe: Fever of 101 or Higher, Coldness, Increased Pain, Numbness or Tingling, Change in Color, Inability to urinate, Inability to have a bowel movement, Using more than 1 pad per hour, Shortness of breath, Dizziness, Fainting spells, Swelling in the ankles, Chest pain, Prolonged hiccupping, Increased palpitations (irregular heartbeat) and Calf discomfort When: IN 2 WEEKS Meaningful Use Info Meaningful Use Diagnoses (Choose all that apply): None applicable Discharge Plan Admission Admit Date/Time: 01/09/23 13:54 Primary Reason for Your Visit: Stress fracture of B/L hips Attending Provider: Uriah Donnelly Primary Care Provider: Meme Christie Consulting Providers: Godfrey Daniel ; Michelle Gutiérrez Discharge Orders/Prescriptions Prescriptions: New sennosides-docusate sodium [Stool Softener-Stimulant Laxat] 8.6-50 mg Tablet 2 tab PO BID PRN PRN (Reason: Constipation) Qty: 0 0RF oxycodone 5 mg Tablet 2.5 mg PO Q4H PRN PRN (Reason: Pain Score 4-10) 3 Days Qty: 10 0RF Rx Instructions: 2.5 mg for moderate pain 4-6/10 and 5 mg for severe pain 7 to 10 mg. metaxalone 400 mg tablet 400 mg PO TID PRN (Reason: muscle pain) Qty: 14 0RF Continued levothyroxine 175 MCG tablet 175 mcg PO DAILY gabapentin 600 MG tablet 600 mg PO QHS atorvastatin 40 mg tablet 40 mg PO DAILY lisinopril 20 mg tablet 20 mg PO DAILY clopidogrel 75 mg tablet 75 mg PO DAILY aspirin 81 mg Tablet,Chewable 81 mg PO DAILY metoprolol tartrate 25 mg tablet 12.5 mg PO BID solifenacin 10 mg tablet 10 mg PO DAILY varenicline 1 mg tablet 1 mg PO BID prednisone 10 mg tablet See Rx Instructions .ROUTE .COMPLEX Label Comments: Take 4 tablets by mouth once daily for 3 days, THEN 2 tablets once daily for 3 days, THEN 1 tablet once daily for 3 days. Take with food.. Rx Instructions: Take 4 tablets by mouth once daily for 3 days, THEN 2 tablets once daily for 3 days, THEN 1 tablet once daily for 3 days. Take with food. START DATE 12/31 doxycycline hyclate 100 mg capsule 100 mg PO BID Label Comments: TAKE 1 CAPSULE BY MOUTH TWICE DAILY FOR 10 DAYS albuterol sulfate 90 mcg/actuation HFA aerosol inhaler 2 puff INHALATION Q4H PRN PRN (Reason: BREATHING) budesonide-formoterol [Symbicort] 160-4.5 mcg/actuation HFA aerosol inhaler 2 puff INHALATION BID Label Comments: inhale 2 puffs BY MOUTH TWICE DAILY ropinirole 2 mg Tablet Extended Release 24 Hr 2 mg PO QHS Held sertraline 100 MG tablet 150 mg PO DAILY Hold Instructions: Hold while patient is taking metaxalone/Skelaxin Referrals / Follow Up: Meme Christie MD [Primary Care Provider] - Godfrey Daniel DO [Med Staff - Active Staff] - Within 1 Week Disposition Disposition (needs filled in before D/C Order can be placed): Home Health Service Charges/Coding Visit Charges Inpatient E&M: 40140 Disch Hosp >30min
== END 2023-01-11 16:50 | disposition home health service (06) ==
LOC: ED 11:52 → MS3 13:57
PROVIDERS: Admitting Provider Internal Medicine; Emergency Provider Emergency Medicine; PCP Internal Medicine; Visit Provider Internal Medicine
DX: M25.551 Pain in right hip (principal); I27.20 Pulmonary hypertension, unspecified; M54.50 Low back pain, unspecified; Z87.891 Personal history of nicotine dependence; I10 Essential (primary) hypertension; Z79.82 Long term (current) use of aspirin; R06.02 Shortness of breath; W01.10XA Fall on same level from slipping, tripping and stumbling with subsequent striking against unspecified object, initial encounter; M79.606 Pain in leg, unspecified; I25.10 Atherosclerotic heart disease of native coronary artery without angina pectoris; Z79.02 Long term (current) use of antithrombotics/antiplatelets; Z79.899 Other long term (current) drug therapy; I25.2 Old myocardial infarction; Y92.89 Other specified places as the place of occurrence of the external cause; G47.33 Obstructive sleep apnea (adult) (pediatric); E03.9 Hypothyroidism, unspecified; Z79.890 Hormone replacement therapy
CPT/HCPCS: 36415; 72100; 73502; 73721; 80048; 80053; 83735; 84443; 85025; 93005; 94002; 94003; 94640; 94668; 94762; 96360; 96361; 96372; 97116; 97162; 97165; 97530; 97535; 97802; 99221; 99283; J7120; A4216; G0378

== ENCOUNTER → 2023-01-21 | Outpatient (CLI) | payer MEDICARE, SELFPAY ==
--- NOTE | 2023-01-21 16:02 | VDLE_ITS ---
Reason For Study: pain RIGHT LEFT GSV is normal. GSV is normal. CFV is compressible, spontaneous, phasic, CFV is compressible, spontaneous, phasic, competent and demonstrates normal competent, and demonstrates normal augmentation. augmentation. FV is compressible, spontaneous, phasic, FV is compressible, spontaneous, phasic, competent and demonstrates normal competent and demonstrates normal augmentation. augmentation. POP V is compressible, spontaneous, phasic, POP V is compressible, spontaneous, phasic, competent and demonstrates normal competent and demonstrates normal augmentation. augmentation. T/P Trunk is compressible. T/P Trunk is compressible. PTV is compressible. PTV is compressible. RT PerV is compressible. LT PerV is compressible. Soleus V is dilated ad noncompressible. Procedure This is a venous duplex using B-mode, color flow and spectral Doppler. Exam performed in department. The exam was diagnostic. A preliminary report was called and/or faxed to Dr. Rosenthal and Dr. Christie. VL/Venous Duplex US - Valentino Extrem Interpretation Summary Acute deep venous thrombosis right soleus vein No evidence for acute deep venous thrombosis left lower extremity Patent and compressible bilateral great saphenous veins Ordering Physician: Brady Rosenthal Referring Physician: Meme Christie M.D. Performed By: Rafael William RVBlanche
== END | disposition home or self-care (01) ==
LOC: CVS 15:11
PROVIDERS: PCP Internal Medicine; Referring Provider Specialist; Visit Provider Specialist
DX: M79.662 Pain in left lower leg (principal); M79.661 Pain in right lower leg
CPT/HCPCS: 93970

== ENCOUNTER 2023-05-24 08:52 | Day surgery (SDC) | payer MEDICARE, SELFPAY ==
[2023-05-24] VITALS (7 sets, daily range): BP systolic 99–134; BP diastolic 49–94; PULSE 44–53; RESP 16–18; TEMP 36.6–36.9; O2SAT 94–98; BMI 42.3
[2023-05-24] MEDS: Lactated Ringers 1,000 ML 15 ML IV (09:31)
--- NOTE | 2023-05-24 09:50 | RAD_ITS ---
PROCEDURE: Cervical medial branch nerve block. DATE OF EXAMINATION: May 24, 2023 INDICATION: Female, 67 years old. Chronic neck pain. FLUOROSCOPY TIME (if supplied): 13 seconds. 4 images are submitted RAD/Cerv Spine 2 or 3 Views IMPRESSION: Intraoperative images are provided for intraforaminal needle positioning on the left at C3-4, C4-5, and C5-6. Electronically Signed: Anmol Sanchez MD at 13:16 EDT Reading Location ID and State: [id number] / Unknown , Service support ,
[2023-05-24] MEDS: MethylPREDNISolone Acetate 80 MG/ML Vial (10:36)
--- NOTE | 2023-05-24 10:42 | OP.PCM_ITS ---
Report of Operation Date of Procedure: 05/24/23 Description of Surgical Findings:: PREOPERATIVE DIAGNOSIS: Cervical spondylosis, cervical degenerative disc disease, cervical facet arthropathy POSTOPERATIVE DIAGNOSIS: Cervical spondylosis, cervical degenerative disc disease, cervical facet arthropathy PROCEDURE PERFORMED: Left-sided cervical medial branch block at C3, C4, C5, and C6. ANESTHESIA: MAC. BLOOD LOSS: Minimal. COMPLICATIONS: None. DESCRIPTION OF PROCEDURE: History and physical of today was reviewed. Risks and benefits of the procedure were explained. The patient understood and agreed to proceed. Informed consent was obtained. IV inserted per routine protocol. The patient was taken to the operating room and placed in the prone position with a pillow positioned underneath the chest. The neck area was prepped and draped in a sterile fashion using iodine x3. Under fluoroscopy guidance on an AP view, the C3 through C6 vertebral bodies were visualized at approximately 10- degree angle, starting on the left C3, ending on the left C6, passing through the C4 and C5. Using a 25-gauge 3-1/2-inch spinal needle, the needle was advanced via the skin. The tip of the needle was maneuvered and directed towards the epiphyseal junction of each corresponding vertebra. Once the tip of the needle was at the vicinity of the medial branch, the needle was pulled approximately 2 mm off the bone. After negative aspiration of blood or CSF and confirmation on AP, oblique as well as lateral view, a total of 4 mL of preservative-free 0.25% Marcaine with 80 mg of Depo-Medrol was injected in divided doses between those four levels. The needles were then removed intact. The patient experienced no sign or symptoms of intrathecal or intravascular injection. The patient experienced no paresthesia. The procedure was completed without any apparent difficulty or any complications. The patient appeared to tolerate it well. ASSESSMENT AND PLAN: This is a 67-year-old female with cervical spondylosis, cervical degenerative disc disease, cervical facet arthropathy status post left-sided cervical medial branch block at C3-C6, patient will continue her current medications, patient will follow in approximately 2 weeks for reevaluation.
== END 2023-05-24 11:30 | disposition home or self-care (01) ==
LOC: SDC 08:53 → AC 08:57
PROVIDERS: PCP Internal Medicine; Referring Provider Anesthesiology Pain Medicine; Visit Provider Anesthesiology Pain Medicine
PROC: 3E0S3BZ Introduction of Anesthetic Agent into Epidural Space, Percutaneous Approach (ICD-10-PCS; CPT 62322; principal; 2023-05-24 10:45)
DX: M47.812 Spondylosis without myelopathy or radiculopathy, cervical region (principal); M46.92 Unspecified inflammatory spondylopathy, cervical region; M50.30 Other cervical disc degeneration, unspecified cervical region; M48.02 Spinal stenosis, cervical region; G47.33 Obstructive sleep apnea (adult) (pediatric); I25.10 Atherosclerotic heart disease of native coronary artery without angina pectoris; E03.9 Hypothyroidism, unspecified; F41.9 Anxiety disorder, unspecified; F32.A Depression, unspecified; I10 Essential (primary) hypertension; I25.2 Old myocardial infarction; G25.81 Restless legs syndrome; Z79.82 Long term (current) use of aspirin; Z79.899 Other long term (current) drug therapy; Z87.891 Personal history of nicotine dependence; Z86.718 Personal history of other venous thrombosis and embolism; Z95.5 Presence of coronary angioplasty implant and graft
CPT/HCPCS: 64491; 01992; 64490; 72040; J7120

== ENCOUNTER 2023-08-09 09:10 | Day surgery (SDC) | payer MEDICARE, SELFPAY ==
[2023-08-09] VITALS (10 sets, daily range): BP systolic 87–141; BP diastolic 32–72; PULSE 55–70; RESP 16; TEMP 36.3–36.6; O2SAT 93–97; BMI 41.0
[2023-08-09] MEDS: Lactated Ringers 1,000 ML 15 ML IV (09:38)
--- NOTE | 2023-08-09 09:40 | RAD_ITS ---
INDICATION: MEDIAL BRANCH NERVE BLOCK C3-C6,RIGHT EXAMINATION/TECHNIQUE: X-RAY - XR Spine Cervical 2 or 3 Views COMPARISON: No relevant prior comparison study available FINDINGS: A radiopaque needle projects over the cervical spine over a lateral aspect at the C4 and C5 levels on these images. Total fluoroscopic time 9.2 seconds. 4 total images. Dose 2 mGy. RAD/Cerv Spine 2 or 3 Views IMPRESSION: Fluoroscopic guidance for cervical nerve block. Please refer to procedural report for further information.. Electronically Signed: Jordon Saab MD at 18:39 EDT ,
[2023-08-09] MEDS: MethylPREDNISolone Acetate 80 MG/ML Vial (10:52)
--- NOTE | 2023-08-09 10:56 | OP.PCM_ITS ---
Report of Operation Date of Procedure: 08/09/23 Description of Surgical Findings:: PREOPERATIVE DIAGNOSIS: Cervical spondylosis, cervical degenerative disc disease, cervical facet arthropathy POSTOPERATIVE DIAGNOSIS: Cervical spondylosis, cervical degenerative disc disease, cervical facet arthropathy PROCEDURE PERFORMED: Right sided cervical medial branch block at C3, C4, C5, and C6. ANESTHESIA: MAC. BLOOD LOSS: Minimal. COMPLICATIONS: None. DESCRIPTION OF PROCEDURE: History and physical of today was reviewed. Risks and benefits of the procedure were explained. The patient understood and agreed to proceed. Informed consent was obtained. IV inserted per routine protocol. The patient was taken to the operating room and placed in the prone position with a pillow positioned underneath the chest. The neck area was prepped and draped in a sterile fashion using iodine x3. Under fluoroscopy guidance on an AP view, the C3 through C6 vertebral bodies were visualized at approximately 10- degree angle, starting on the right C3, ending on the right C6, passing through the C4 and C5. Using a 25-gauge 3-1/2-inch spinal needle, the needle was advanced via the skin. The tip of the needle was maneuvered and directed towards the epiphyseal junction of each corresponding vertebra. Once the tip of the needle was at the vicinity of the medial branch, the needle was pulled approximately 2 mm off the bone. After negative aspiration of blood or CSF and confirmation on AP, oblique as well as lateral view, a total of 4 mL of preservative-free 0.25% Marcaine was injected in divided doses between those four levels. The needles were then removed intact. The patient experienced no sign or symptoms of intrathecal or intravascular injection. The patient experienced no paresthesia. The procedure was completed without any apparent difficulty or any complications. The patient appeared to tolerate it well. ASSESSMENT AND PLAN: This is a 68-year-old female with cervical spondylosis, cervical degenerative disc disease, cervical facet arthropathy status post right-sided cervical medial branch block at C3-C6, patient will continue her current medications, patient will follow in approximately 2 weeks for reevaluation.
[2023-08-09] MEDS: Ketorolac 15 MG/ML Vial IV ×2 (11:59→12:15)
== END 2023-08-09 13:19 | disposition home or self-care (01) ==
LOC: SDC 09:13 → AC 09:13
PROVIDERS: PCP Internal Medicine; Referring Provider Anesthesiology Pain Medicine; Visit Provider Anesthesiology Pain Medicine
PROC: 3E0S3BZ Introduction of Anesthetic Agent into Epidural Space, Percutaneous Approach (ICD-10-PCS; CPT 62322; principal; 2023-08-09 10:35)
DX: M47.812 Spondylosis without myelopathy or radiculopathy, cervical region (principal); M46.92 Unspecified inflammatory spondylopathy, cervical region; M50.30 Other cervical disc degeneration, unspecified cervical region; Z79.82 Long term (current) use of aspirin; Z79.899 Other long term (current) drug therapy
CPT/HCPCS: 64491; 01992; 64490; 72040; J7120

== ENCOUNTER 2023-09-27 09:15 | Day surgery (SDC) | payer MEDICARE, SELFPAY ==
[2023-09-27] VITALS (7 sets, daily range): BP systolic 89–166; BP diastolic 48–71; PULSE 53–62; RESP 16; TEMP 36.4–36.8; O2SAT 95–97; BMI 40.7
[2023-09-27] MEDS: Lactated Ringers 1,000 ML 15 ML IV (09:39)
--- NOTE | 2023-09-27 10:16 | RAD_ITS ---
STUDY: X-RAY - CERVICAL SPINE REASON FOR EXAM: Female, 68 years old. MEDIAL BRANCH NERVE BLOCK C3-C6, LEFT TECHNIQUE: 3 intraoperative view(s) of the cervical spine were obtained. 8 seconds of fluoroscopy, dose of 2.26 mgy COMPARISON: None FINDINGS: No intraoperative complications noted during left-sided C3-C6 nerve block. RAD/Cerv Spine 4 or 5 Views IMPRESSION: No intraoperative complications during left C3-C6 nerve block Electronically Signed: Anmol Burroughs MD at 12:17 EST ,
[2023-09-27] MEDS: MethylPREDNISolone Acetate 80 MG/ML Vial (10:20)
--- NOTE | 2023-09-27 10:26 | OP.PCM_ITS ---
Report of Operation Date of Procedure: 09/27/23 Description of Surgical Findings:: PREOPERATIVE DIAGNOSIS: Cervical spondylosis, cervical degenerative disc disease, cervical facet arthropathy POSTOPERATIVE DIAGNOSIS: Cervical spondylosis, cervical degenerative disc disease, cervical facet arthropathy PROCEDURE PERFORMED: Left-sided cervical medial branch block at C3, C4, C5, and C6. ANESTHESIA: MAC. BLOOD LOSS: Minimal. COMPLICATIONS: None. DESCRIPTION OF PROCEDURE: History and physical of today was reviewed. Risks and benefits of the procedure were explained. The patient understood and agreed to proceed. Informed consent was obtained. IV inserted per routine protocol. The patient was taken to the operating room and placed in the prone position with a pillow positioned underneath the chest. The neck area was prepped and draped in a sterile fashion using iodine x3. Under fluoroscopy guidance on an AP view, the C3 through C6 vertebral bodies were visualized at approximately 10- degree angle, starting on the left C3, ending on the left C6, passing through the C4 and C5. Using a 25-gauge 3-1/2-inch spinal needle, the needle was advanced via the skin. The tip of the needle was maneuvered and directed toward s the epiphyseal junction of each corresponding vertebra. Once the tip of the needle was at the vicinity of the medial branch, the needle was pulled approximately 2 mm off the bone. After negative aspiration of blood or CSF and confirmation on AP, oblique as well as lateral view, a total of 4 mL of preservative-free 0.25% Marcaine with 80 mg of Depo-Medrol was injected in divided doses between those four levels. The needles were then removed intact. The patient experienced no sign or symptoms of intrathecal or intravascular injection. The patient experienced no paresthesia. The procedure was completed without any apparent difficulty or any complications. The patient appeared to tolerate it well. ASSESSMENT AND PLAN: This is a 68-year-old female with cervical spondylosis, cervical degenerative disc disease, cervical facet arthropathy status post left-sided cervical medial branch block at C3-C6, patient will continue her current medications, patient will follow up in approximately 2 weeks for reevaluation.
== END 2023-09-27 11:00 | disposition home or self-care (01) ==
LOC: SDC 09:16 → AC 09:19
PROVIDERS: PCP Internal Medicine; Referring Provider Anesthesiology Pain Medicine; Visit Provider Anesthesiology Pain Medicine
PROC: 3E0S3BZ Introduction of Anesthetic Agent into Epidural Space, Percutaneous Approach (ICD-10-PCS; CPT 62322; principal; 2023-09-27 10:45)
DX: M47.812 Spondylosis without myelopathy or radiculopathy, cervical region (principal); M46.92 Unspecified inflammatory spondylopathy, cervical region; M50.30 Other cervical disc degeneration, unspecified cervical region; E03.9 Hypothyroidism, unspecified; F41.9 Anxiety disorder, unspecified; I10 Essential (primary) hypertension; F32.A Depression, unspecified; G25.81 Restless legs syndrome; Z79.82 Long term (current) use of aspirin; Z79.899 Other long term (current) drug therapy; Z86.718 Personal history of other venous thrombosis and embolism; Z87.891 Personal history of nicotine dependence
CPT/HCPCS: 64491; 01992; 64490; 72050; J7120

== ENCOUNTER → 2023-10-11 | Outpatient (CLI) | payer MEDICARE, SELFPAY | END | disposition home or self-care (01) | LOC: SL 20:01 | PROVIDERS: PCP Internal Medicine; Referring Provider Psychiatry & Neurology Sleep Medicine; Visit Provider Psychiatry & Neurology Sleep Medicine | DX: G47.33 Obstructive sleep apnea (adult) (pediatric) (principal) | CPT/HCPCS: 95810 ==

== ENCOUNTER 2024-03-13 06:06 | Day surgery (SDC) | payer MEDICARE, SELFPAY ==
[2024-03-13] VITALS (7 sets, daily range): BP systolic 100–155; BP diastolic 51–92; PULSE 65–80; RESP 16–18; TEMP 36.3–36.7; O2SAT 93–96; BMI 42.7
[2024-03-13] MEDS: Lactated Ringers 1,000 ML 15 ML IV (06:46)
--- NOTE | 2024-03-13 07:35 | RAD_ITS ---
PROCEDURE: Left C3-C6 radiofrequency ablation. DATE OF EXAMINATION: March 13, 2024. INDICATION: Female, 68 years old. Chronic neck pain. FLUOROSCOPY TIME (if supplied): (23 seconds) minutes/seconds. 4.34 mGy. 5 fluoroscopic images were submitted. RAD/Cerv Spine 4 or 5 Views IMPRESSION: Intraoperative imaging provided for left C3-C6 radiofrequency ablation. Electronically Signed: Ever James MD at 14:50 EDT ,
[2024-03-13] MEDS: Lidocaine 1% (30 ml sdv) 30 ML Vial (07:44)
[2024-03-13] MEDS: MethylPREDNISolone Acetate 40 MG/ML Vial (07:45)
--- NOTE | 2024-03-13 08:06 | PCM.OPRPT ---
Report of Operation Date of Procedure: 03/13/24 Description of Surgical Findings:: PREOPERATIVE DIAGNOSIS: Cervical spondylosis, cervical degenerative disc disease, cervical facet arthropathy POSTOPERATIVE DIAGNOSIS: Cervical spondylosis, cervical degenerative disc disease, cervical facet arthropathy PROCEDURE PERFORMED: Left-sided radiofrequency ablation of the medial branch at C3, C4, C5, C6. ANESTHESIA: MAC. BLOOD LOSS: Minimal. COMPLICATIONS: None. DESCRIPTION OF PROCEDURE: History and physical of today was reviewed. Risks and benefits of the procedure were explained. The patient understood and agreed to proceed. Informed consent was obtained. IV inserted per routine protocol. The patient was taken to the operating room and placed in the prone position with a pillow positioned underneath the chest. The neck area was prepped and draped in a sterile fashion using iodine x3. Under fluoroscopy guidance on an AP view, the C3 through C6 vertebral bodies were visualized. The skin and subcutaneous tissue was anesthetized with approximately 10 mL of 1% lidocaine using a 25-gauge regular needle. Under direct visualization on fluoroscopy on a lateral view, using a 21-gauge 10-cm with a 10-mm curved active-tip radiofrequency ablation needle, the needle was passed through the skin. The tip of the needle was maneuvered and directed towards the epiphyseal junction of each corresponding vertebra, starting on the left C3, ending on the left C6, passing through the C4 and C5. Once the tip of the needle was at the vicinity of the medial branch and at the middle of the trapezoid on the lateral view, the stylette of each needle was then removed. After negative aspiration of blood or CSF and confirmation on AP, oblique as well as lateral view, radiofrequency ablation probe was then inserted at each level. Impedance was then recorded at C3 to be 248 ohm, at C4 to be 265 ohm, at C5 to be 223 ohm, and at C6 to be 218 ohm. Motor-evoked potential was then initiated to 1.5 volt without any motor response to each corresponding level or the left arm. The probe was then removed intact and a total of 4 mL of preservative-free 1% lidocaine was injected in divided doses between those four levels after negative aspiration of blood or CSF. After repeated confirmation, the radiofrequency ablation probe was then inserted and after repeated confirmation on AP, oblique as well as lateral view, radiofrequency ablation was then initiated to approximately 80 degree Celsius for 60 second at each level. Once concluded, the probe was then removed intact. A total of 4 mL of preservative-free 0.25% Marcaine with 40 mg of Depo-Medrol was injected in divided doses between those four levels. The needles were then removed intact. The patient experienced no sign or symptoms of intrathecal or intravascular injection. The patient experienced no paresthesia. The procedure was completed without any apparent difficulty or any complications. The patient appeared to tolerate it well. Sensory as well as motor exam was unchanged from prior to the procedure. ASSESSMENT AND PLAN: This is a 68-year-old female with cervical spondylosis, cervical degenerative disc disease, cervical facet arthropathy status post left-sided cervical radiofrequency ablation of the medial branch at C3-C6, patient will continue her current medications, patient will follow in approximately 2 weeks for reevaluation.
== END 2024-03-13 08:54 | disposition home or self-care (01) ==
LOC: SDC 06:06 → AC 06:08
PROVIDERS: PCP Internal Medicine; Referring Provider Anesthesiology Pain Medicine; Visit Provider Anesthesiology Pain Medicine
PROC: (CPT 64633; principal; 2024-03-13 07:15)
DX: M47.812 Spondylosis without myelopathy or radiculopathy, cervical region (principal); J44.9 Chronic obstructive pulmonary disease, unspecified; M50.30 Other cervical disc degeneration, unspecified cervical region; M46.92 Unspecified inflammatory spondylopathy, cervical region; I25.10 Atherosclerotic heart disease of native coronary artery without angina pectoris; G47.33 Obstructive sleep apnea (adult) (pediatric); E03.9 Hypothyroidism, unspecified; I10 Essential (primary) hypertension; G25.81 Restless legs syndrome; Z95.5 Presence of coronary angioplasty implant and graft; Z87.891 Personal history of nicotine dependence; Z79.01 Long term (current) use of anticoagulants; Z79.899 Other long term (current) drug therapy; Z79.82 Long term (current) use of aspirin; Z79.51 Long term (current) use of inhaled steroids
CPT/HCPCS: 64633; 64634; 01992; 72050; 76000; J7120; J2405

== ENCOUNTER 2024-06-15 14:57 | Inpatient (IN) | payer MEDICARE, SELFPAY ==
[2024-06-15] VITALS (15 sets, daily range): BP systolic 129–186; BP diastolic 51–98; PULSE 48–82; RESP 18–24; TEMP 36.4–36.6; O2SAT 90–97; BMI 41.1; BMI 40.4
--- NOTE | 2024-06-15 15:06 | CT_ITS ---
STUDY: CT BRAIN WITHOUT CONTRAST REASON FOR EXAM: Female, 68 years old. altered mental status RADIATION DOSAGE (If Supplied By Facility): CTDIvol = ( 44.99 ) mGy, DLP = ( 863.60 ) mGycm TECHNIQUE: Transaxial CT imaging of the brain was performed without administration of intravenous contrast material. Individualized dose optimization techniques were used for this CT. COMPARISON: No relevant priors. FINDINGS: Normal soft tissue structures. Normal calvarium. Normal size ventricles and extra-axial spaces for the patient''s age. Moderate nonspecific periventricular white matter disease most likely chronic ischemic changes in patient of this age. Normal basal ganglia and thalami. Normal brainstem. Normal cerebellum. Empty sella deformity likely of no significance There is no intracranial hemorrhage. There are no findings of an acute ischemic infarction. Small polyp or mucous retention cyst in left maxillary sinus. Postsurgical changes of the orbits. CT/Brain/Head without Contrast IMPRESSION: Moderate periventricular white matter ischemic changes. No mass or acute bleed. If concern for acute infarct MRI recommended Electronically Signed: Benton Haro MD at 17:00 EDT ,
--- NOTE | 2024-06-15 15:06 | CT_ITS ---
STUDY: CT CHEST, ABDOMEN T PELVIS WITH CONTRAST REASON FOR EXAM: Female, 68 years old. Chest pain, back pain RADIATION DOSAGE (If Supplied By Facility): CTDIvol = ( 21.70 ) mGy, DLP = ( 3207.87 ) mGycm TECHNIQUE: Transaxial imaging was performed following intravenous administration of IV 100mL Isovue-370. Individualized dose optimization techniques were used for this CT. COMPARISON: No relevant priors. FINDINGS: CHEST The lungs are normal. There is no demonstrated pleural abnormality. Heart is mildly enlarged and there is coronary artery calcification. Subcentimeter mediastinal nodes likely benign. Normal hilar regions. Normal unenhanced pulmonary arteries. Atherosclerotic changes of the aorta without evidence for aneurysm Dorsal spine demonstrates advanced degenerative change. Right shoulder prosthesis is noted. ABDOMEN . Normal liver. Gallbladder has been removed surgically. Normal spleen. Normal pancreas. Normal bilateral adrenal glands. Normal right kidney. Normal left kidney. Normal visualized stomach. Normal small intestine. Minor diverticular changes of the descending and sigmoid colon without evidence for acute diverticulitis. No evidence for acute appendicitis. Atherosclerotic changes of the aorta without evidence for aneurysm. Normal inferior vena cava. Normal retroperitoneum. PELVIS Normal urinary bladder. There is no pelvic fluid. There is no pelvic lymphadenopathy or mass lesion. Normal visualized pelvic arteries. Normal abdominal wall. Lumbar spine demonstrates degenerative changes. Postsurgical changes status post multilevel posterior fusion spanning L2-S1 and bilateral sacroiliac fusion CT/CT Chest, Abd, Pel w/Contrast IMPRESSION: CT of the chest demonstrates ASHD without evidence for aortic aneurysm. No acute cardiopulmonary pathology CT of the abdomen and pelvis also demonstrated minor diverticular changes of the colon without evidence for acute diverticulitis. There is no evidence for acute abnormality status post cholecystectomy and multilevel spinal fusion the lumbar spine. Electronically Signed: Benton Haro MD at 17:13 EDT ,
--- NOTE | 2024-06-15 15:06 | EKG12_ITS ---
Test Reason : CP/SOB Blood Pressure : / mmHG Vent. Rate : 069 BPM Atrial Rate : 069 BPM P-R Int : 162 ms QRS Dur : 078 ms QT Int : 432 ms P-R-T Axes : 059 013 055 degrees QTc Int : 462 ms Normal sinus rhythm Normal ECG Confirmed by JENAE SR, SOCORRO ([id number]), greeting card editor JAN ALBERTO ([id number]) on 06/19/2024 8:44:34 AM Referred By: NATASHA/DRISS Confirmed By:ZO EMANUEL MD
[2024-06-15] MEDS: 0.9% Normal Saline (1000mL) 1,000 ML 1000 ML IV (15:10)
[2024-06-15 15:19] LABS: Bedside Glucose 83 mg/dL (74-106)
--- NOTE | 2024-06-15 15:20 | ED.VIS.DYS ---
HPI History of Present Illness Chief Complaint: Chest Pain Narrative Narrative: 68-year-old female presents with her because of decreased mental status, shortness of breath, and chest pain. History and physical is mildly limited secondary to patient condition. reports that she has past medical history of coronary artery disease with stenting. She states her symptoms began yesterday. reports that she laid in bed and slept all day. She slept through the evening, got up this morning, was able to walk out to the patio. He sat down with her, and she turned to room and told him that she thought that she needed to come to the hospital. She is a smoker. She states that she is having shortness of breath, chest pain, back pain, and headache. On the way to the hospital in the car, states that she went more unresponsive. While she remained awake, she would not respond to questions. [facility] Medical History Loss of hearing Wears glasses Post-menopausal Depression Anxiety Alcohol use Arthritis Bladder disease Low iron DVT (deep venous thrombosis) Restless legs Back pain Difficulty swallowing History of IBS Former smoker BiPAP (biphasic positive airway pressure) dependence COPD (chronic obstructive pulmonary disease) Shortness of breath on exertion Leg cramps History of pain when walking History of echocardiogram History of stress test Cardiology follow-up encounter Hypothyroidism Pulmonary HTN CAD (coronary artery disease) Strain of right groin Acute right hip pain History of heart attack HTN (hypertension) Home Medications ?Medication ?Instructions ?Recorded ?Last Taken ?Type gabapentin 600 mg tablet 600 mg PO QHS 05/31/15 03/12/24 History levothyroxine 175 mcg tablet 175 mcg PO DAILY 05/31/15 03/13/24 History sertraline 100 mg tablet 150 mg PO QHS 05/31/15 03/12/24 History albuterol sulfate 90 mcg/actuation 2 puff inhalation Q4H PRN PRN 01/09/23 03/13/24 History aerosol inhaler BREATHING aspirin 81 mg chewable tablet 81 mg PO DAILY HEART HEALTH 01/09/23 03/07/24 History atorvastatin 40 mg tablet 40 mg PO DAILY CHOLESTEROL 01/09/23 03/12/24 History budesonide-formoterol HFA 160 2 puff inhalation BID PRN .SOB 01/09/23 03/13/24 History mcg-4.5 mcg/actuation aerosol inhaler (Symbicort) clopidogrel 75 mg tablet 75 mg PO DAILY . 01/09/23 03/07/24 History lisinopril 20 mg tablet 20 mg PO DAILY HTN 01/09/23 03/13/24 History ropinirole 2 mg tablet,extended 2 mg PO QHS 01/10/23 03/12/24 History release 24 hr metaxalone 400 mg tablet 400 mg PO QHS muscle pain 05/21/23 03/12/24 History coenzyme Q10 10 mg capsule 10 mg PO DAILY 03/13/24 03/12/24 History pyridoxine (vitamin B6) 100 mg 100 mg PO DAILY 03/13/24 03/12/24 History tablet (Vitamin B-6) Allergy/AdvReac Type Severity Reaction Status Date / Time metaxalone (From [employer][a]list games) Allergy Intermediate Itching Verified 06/15/24 15:03 adhesive Allergy Hives Verified 06/15/24 15:03 Surgical History Hx of total knee arthroplasty Hx of total shoulder replacement Hx of appendectomy Hx laparoscopic cholecystectomy Hx of rotator cuff surgery Hx of elbow surgery History of back surgery Stented coronary artery Social History Smoking Status: Current every day smoker tobacco type: cigarettes ROS ROS ED ROS Narrative Limited secondary to patient condition. Partial history and review of systems obtained from . Constitutional: No fever, no chills. Slept all day yesterday and through the night. HEENT: No sore throat. No neck pain. No loss of vision. No rhinorrhea. Cardiovascular: Positive chest pain. No palpitations. No pedal edema. Respiratory: No cough, positive shortness of breath. Abdominal: No abdominal pain. No nausea. No vomiting. Genitourinary: No dysuria. No hematuria. Musculoskeletal: No myalgias. No arthralgias. Positive back pain. Neurologic: Positive headaches. No dizziness. No lightheadedness. Skin: No rash. No change in color. Psychiatric: No depression. No anxiety. EXAM Physical Exam Narrative Exam Narrative: Afebrile. Vital signs noted. Elevated blood pressure initially of 186/98, cardiovascular examination reveals regular rate and rhythm. She has diffuse wheezing throughout her bilateral lung david anteriorly and is moving a fair amount of air. Mild tachypnea. Abdomen soft nontender with normal active bowel sounds. Awakens to voice. Const Vital Signs: 06/15/24 14:59 06/15/24 15:35 06/15/24 15:35 Temperature 97.7 F L Temperature Source Axillary Pulse Rate 63 48 L Respiratory Rate 22 H 22 H Respiratory Effort Respiratory Pattern Blood Pressure 186/98 H Blood Pressure Mean 127 Pulse Ox 96 97 Oxygen Delivery Method Room Air Nasal Cannula Oxygen Flow Rate (L/min) 2 06/15/24 15:36 06/15/24 16:00 06/15/24 16:42 Temperature Temperature Source Pulse Rate 58 L 56 L Respiratory Rate 21 H 21 H Respiratory Effort Short of Breath Respiratory Pattern Blood Pressure 186/83 H 178/76 H Blood Pressure Mean 117 110 Pulse Ox 96 96 Oxygen Delivery Method Room Air Room Air Oxygen Flow Rate (L/min) 06/15/24 16:43 06/15/24 17:00 06/15/24 17:02 Temperature Temperature Source Pulse Rate 82 Respiratory Rate 24 H Respiratory Effort Short of Breath Respiratory Pattern Tachypnea Blood Pressure 166/79 H Blood Pressure Mean 108 Pulse Ox 96 94 Oxygen Delivery Method Room Air Room Air Nasal Cannula Oxygen Flow Rate (L/min) 2 06/15/24 17:02 06/15/24 17:41 06/15/24 17:52 Temperature Temperature Source Pulse Rate 62 69 74 Respiratory Rate 20 H 23 H 21 H Respiratory Effort Respiratory Pattern Blood Pressure 143/73 H 156/90 H Blood Pressure Mean 96 112 Pulse Ox 93 90 Oxygen Delivery Method Room Air Room Air Oxygen Flow Rate (L/min) 06/15/24 18:00 Temperature Temperature Source Pulse Rate 69 Respiratory Rate 18 Respiratory Effort Respiratory Pattern Blood Pressure 129/54 H Blood Pressure Mean 79 Pulse Ox 93 Oxygen Delivery Method Nasal Cannula Oxygen Flow Rate (L/min) 2 MDM MDM MDM Narrative Medical decision making narrative: Differential diagnosis includes but not limited to intracranial hemorrhage versus CO2 narcosis versus aortic dissection versus ACS. In review of her problem list, she does have coronary artery disease, pulmonary hypertension, and hypothyroidism. EKG was obtained and interpreted by myself independently as normal sinus rhythm at 69 bpm without ectopy or acute ST changes. No STEMI. ABG was obtained and reviewed. She has a pH of 7.41 with a pCO2 of 39, no CO2 narcosis, PaO2 of 65. I reviewed her laboratory work and she has a normal white count of 7.6, hemoglobin 15.0 with hematocrit 45.4. Platelet count normal at 188. Review of her CMP shows chloride elevated at 110 which I think is nonspecific, sodium normal at 140 with potassium 4.0, glucose is appropriate at 94 with normal anion gap of 5. Ammonia level is slightly elevated at 48. She does not have a history of cirrhosis and her LFTs show an AST of 28 and an ALT of 31, alk phos of 107. [id number] glucose is 83. Patient did require DuoNeb aerosolized treatment and additional albuterol. Repeat examination afterwards still shows her audibly wheezing. She was 94% on nasal cannula oxygen. This will be turned off to see if she desaturates and becomes hypoxic. Given her decreased mental status, I obtained a CT of the brain and there is no evidence of acute hemorrhage or mass. There are chronic periventricular white matter changes. Although I had initially ordered a chest x-ray it was not performed prior to the CT of the chest, abdomen, and pelvis to rule out aortic dissection. There is no evidence of aortic dissection on review of the radiology report, no pneumonia, no pneumothorax. CT of the abdomen and pelvis shows no evidence of diverticulitis or acute process as well. Patient became nauseated and was administered Zofran. I will administer her Solu-Medrol as I think she is probably having more of a COPD exacerbation. Given her decreased mental status, and audible wheezing, patient will be discussed with the hospitalist for admission. Patient complained of headache and neck pain so she was administered Tylenol 1 g orally. I am reluctant to give her narcotic for her pain as she had decreased mental status already and I do not want to suppress her respiratory drive as she is having a COPD exacerbation. Patient discussed with Dr. Sanderson for admission to the PCU. Patient is in stable condition. History & Record Review Discussion w/independent historian: Patient and Family Additional record(s) reviewed:: Prior ED visit (Noncontributory to current ED visit) Lab Data Attestation: I reviewed the patient's lab results. Labs: Laboratory Results - last 24 hr 06/15/24 06/15/24 06/15/24 15:01 15:11 17:23 WBC 7.6 RBC 4.55 Hgb 15.0 Hct 45.4 MCV 99.8 H MCH 33.0 H MCHC 33.0 RDW Std Deviation 46.1 H RDW Coeff of Arti 12.5 Plt Count 188 MPV 11.3 Immature Gran % (Auto) 0.400 Neut % (Auto) 66.8 Lymph % (Auto) 22.7 [place] % (Auto) 7.5 Eos % (Auto) 2.2 Baso % (Auto) 0.4 Absolute Neuts (auto) 5.1 Absolute Lymphs (auto) 1.72 Nucleated RBC % 0 Sodium 140 Potassium 4.0 Chloride 110 H Carbon Dioxide 25.0 Anion Gap 5 BUN 11 Creatinine 0.89 Estim Creat Clear Calc 66.70 Est GFR (MDRD) Af Amer 81 Est GFR (MDRD) Non-Af 67 BUN/Creatinine Ratio 12.4 Glucose 94 Calcium 9.5 Total Bilirubin 0.60 AST 28 ALT 31 Alkaline Phosphatase 107 Ammonia 48.0 H Troponin I High Sens 9 11 Total Protein 7.2 Albumin 3.8 Globulin 3.4 Albumin/Globulin Ratio 1.1 POC Glucose 83 ABG Data ABG results: ABG 06/15/24 15:22 Specimen Type ART Sample Site R Radial pH 7.42 Bicarbonate Actual 25.4 Total CO2 27 Base Excess 1 O2 Saturation 93 L ABG pCO2 39.3 ABG pO2 65 L Kwame Test Positive O2 Delivery Device Room Air Vent Mode Not entered Radiography Diagnostic Testing: Clinical Impression(s) from Imaging Studies Brain CT 06/15/24 15:06 IMPRESSION: Moderate periventricular white matter ischemic changes. No mass or acute bleed. If concern for acute infarct MRI recommended Electronically Signed: Benton Haro MD at 17:00 EDT , Chest/Abdomen/Pelvis CT 06/15/24 15:06 IMPRESSION: CT of the chest demonstrates ASHD without evidence for aortic aneurysm. No acute cardiopulmonary pathology CT of the abdomen and pelvis also demonstrated minor diverticular changes of the colon without evidence for acute diverticulitis. There is no evidence for acute abnormality status post cholecystectomy and multilevel spinal fusion the lumbar spine. Electronically Signed: Benton Haro MD at 17:13 EDT , Discharge Plan Dx/Rx/DC Orders Clinical Impression: CAD (coronary artery disease), COPD exacerbation, Wheezing, Chest pain, Mental status, decreased Disposition Disposition: Acute Care Hospital [facility]
[2024-06-15 15:25] LABS: Allen Test Positive; Base Excess 1 mmol/L (-2 to +2); Bicarbonate 25.4 mmol/L (22-26); Blood Gas Specimen Type ART; Mode Not entered; O2 Delivery Device Room Air; PO2 65 mmHG (75-100); SITE R Radial; SO2 93 % (95-99); Total Carbon Dioxide 27 mmol/L; pCO2 39.3 mmHg (35-45); pH 7.42 (7.35-7.45)
[2024-06-15 15:25] LABS: Absolute Lymphocyte Count 1.72 X10^3/uL (0.83-4.51); Absolute Neutrophil Count 5.1 X10^3/uL (2.0-7.7); Basophil# 0.03 X10^3/uL; Basophil% 0.4 % (0-1); Eosinophil# 0.17 X10^3/uL; Eosinophils% 2.2 % (0-5); Hematocrit 45.4 % (37-47); Lymphocyte # 1.72 X10^3/ul (0.83-4.51); Lymphocyte % 22.7 % (19-41); Mean Corpuscular Volume 99.8 fL (81-99); Mean Platelet Vol. 11.3 fl (6.2-12.0); Monocyte# 0.57 X10^3/uL; Monocyte% 7.5 % (0-10); NRBC Flagged by Analyzer 0 % (0-5); Neutrophil # 5.05 X10^3/uL (2.7-7.7); Neutrophil % 66.8 % (47-70); Platelet Count 188 K/mm3 (150-450); RBC Distribution Width CV 12.5 % (11.6-14.6); RBC Distribution Width SD 46.1 fl (35.1-43.9); Red Blood Count 4.55 M/mm3 (4.2-5.4); White Blood Count 7.6 K/mm3 (4.4-11.0)
[2024-06-15] MEDS: Ipratropium/Albuterol Sulfate 3 ML AMPUL.NEB INHALATION ×2 (15:35→20:55)
[2024-06-15 15:47] LABS: ALB/GLOB Ratio 1.1 RATIO (0.9-2.4); AST(SGOT) 28 U/L (15-37); Alanine Aminotransfer ALT/SGPT 31 U/L (13-56); Albumin, Serum 3.8 g/dL (3.2-5.0); Alkaline Phosphatase 107 U/L (45-117); Anion Gap 5 (5-15); BUN 11 mg/dL (7-18); BUN/Creat Ratio 12.4 RATIO (10-20); Calcium,Total 9.5 mg/dL (8.5-10.1); Chloride 110 mmol/L (98-107); Creatinine, Serum 0.89 mg/dL (0.55-1.02); EST Glomerular Filtration Rate 67 mL/min (>60); Est Glom Filt Rate - Afr Amer 81 mL/min (>60); Globulin 3.4 g/dL (2.2-4.2); Glucose 94 mg/dL (74-106); Protein, Total 7.2 g/dL (6.4-8.2); Sodium Level 140 mmol/L (136-145); Troponin-I HS (w/2H Reflex) 9 pg/mL (3.0-54.0)
[2024-06-15] MEDS: Ondansetron 4 MG/2 ML Vial IV (16:32)
[2024-06-15] MEDS: Albuterol 2.5 MG/3 ML VIAL.NEB. INHALATION (17:01)
[2024-06-15 17:18] LABS: Reflex Troponin-HS? (from REC) Y
[2024-06-15] MEDS: MethylPREDNISolone 125 MG/2 ML Vial IV (17:56)
[2024-06-15 17:59] LABS: Troponin-I HS 11 pg/mL (3.0-54.0)
--- NOTE | 2024-06-15 18:09 | PCM.HP.STD ---
HPI - General General Date of Admission: 06/15/24 Date of Service: 06/15/24 Chief Complaint: Altered mentation with neck pain, shortness of breath with wheezing HPI Narrative RITCHIE QUEEN, is a 68 F who presented to [facility] ED on 06/15/2024 with multiple concerns including altered mentation with neck pain and worsening shortness of breath with wheezing. brought patient into the ED. On arrival, patient was able to tell the ED physician her name but was unable to say where she was or what the year was. She was very fatigued appearing at that time and somewhat somnolent appearing. ABG was obtained and was normal, pH 7.42 and CO2 39. CBC and CMP were unremarkable. Ammonia level was found to be mildly elevated at [address] unclear reason[address] CT brain was nonacute. CTA chest abdomen pelvis was also essentially unremarkable. Patient did have audible wheezing on exam and was given a breathing treatment and a dose of IV steroids. Hospitalist was then contacted for admission. I saw the patient at bedside in the ED, present at bedside. Patient was laying back comfortably in bed but was very fatigued appearing and somewhat somnolent. She was hardly able to open her eyes for me but did tell me her name and that she was in the hospital. Did not know which hospital she was in or the year. She noted that she had a headache with neck pain and bilateral shoulder pain. She denied pain or discomfort anywhere else. She did note that she felt very tired. Per the , patient was out mowing the lawn and doing things around the house as recently as 3 days ago. He was concerned that she overdid it leading to significant fatigue. She has apparently had somewhat similar episodes in the past but not to this degree. She notably has history of chronic bilateral shoulder pain with 1 shoulder replacement and 1 shoulder repaired, with shoulder repair being sometime last year per the . She also has history of chronic neck pain and follows with Dr. Salvador with pain management. Has been notes that she receives pain injections with Dr. Morris and that last one was around 1 to 2 months ago he thinks. On chart review, she last saw Dr. Salvador on 03/13. He has diagnosis of cervical spondylosis, cervical DDD and cervical facet arthropathy. She had left-sided radiofrequency ablation of the medial branches of C3-C6 done at that time. She previously had left-sided cervical medial branch block done in September 2023 and right sided cervical medial branch block done in August 2023. Patient will be admitted for further management. [facility] Medical History Loss of hearing Wears glasses Post-menopausal Depression Anxiety Alcohol use Arthritis Bladder disease Low iron DVT (deep venous thrombosis) Restless legs Back pain Difficulty swallowing History of IBS Former smoker BiPAP (biphasic positive airway pressure) dependence COPD (chronic obstructive pulmonary disease) Shortness of breath on exertion Leg cramps History of pain when walking History of echocardiogram History of stress test Cardiology follow-up encounter Hypothyroidism Pulmonary HTN CAD (coronary artery disease) Strain of right groin Acute right hip pain History of heart attack HTN (hypertension) Home Medications ?Medication ?Instructions ?Recorded ?Last Taken ?Type gabapentin 600 mg tablet 600 mg PO QHS Neuropathy 05/31/15 03/12/24 History levothyroxine 175 mcg tablet 175 mcg PO DAILY Thyroid 05/31/15 03/13/24 History sertraline 100 mg tablet 150 mg PO QHS Depression 05/31/15 03/12/24 History albuterol sulfate 90 mcg/actuation 2 puff inhalation Q4H PRN PRN 01/09/23 03/13/24 History aerosol inhaler BREATHING aspirin 81 mg chewable tablet 81 mg PO DAILY HEART HEALTH 01/09/23 03/07/24 History atorvastatin 40 mg tablet 40 mg PO DAILY CHOLESTEROL 01/09/23 03/12/24 History budesonide-formoterol HFA 160 2 puff inhalation BID SOB 01/09/23 03/13/24 History mcg-4.5 mcg/actuation aerosol inhaler (Symbicort) clopidogrel 75 mg tablet 75 mg PO DAILY . 01/09/23 03/07/24 History lisinopril 20 mg tablet 20 mg PO DAILY HTN 01/09/23 03/13/24 History ropinirole 2 mg tablet,extended 2 mg PO QHS Restless legs 01/10/23 03/12/24 History release 24 hr metaxalone 400 mg tablet 400 mg PO QHS muscle pain 05/21/23 03/12/24 History coenzyme Q10 10 mg capsule 10 mg PO DAILY Supplement 03/13/24 03/12/24 History pyridoxine (vitamin B6) 100 mg 100 mg PO DAILY Supplement 03/13/24 03/12/24 History tablet (Vitamin B-6) ketorolac 0.5 % eye drops 1 drp ophthalmic (eye) TID 06/15/24 Unknown History Cataracts methocarbamol 500 mg tablet 500 - 1,000 mg PO TID PRN PRN 06/15/24 Unknown History Muscle spasms prednisolone acetate 1 % eye 1 drp ophthalmic (eye) TID 06/15/24 Unknown History drops,suspension Cataracts systane lubricant eye drop 1 drp ophthalmic (eye) 3XD 06/15/24 Unknown History Cataracts Allergy/AdvReac Type Severity Reaction Status Date / Time metaxalone (From Skelaxin) Allergy Intermediate Itching Verified 06/15/24 15:03 adhesive Allergy Hives Verified 06/15/24 15:03 Surgical History Hx of total knee arthroplasty Hx of total shoulder replacement Hx of appendectomy Hx laparoscopic cholecystectomy Hx of rotator cuff surgery Hx of elbow surgery History of back surgery Stented coronary artery Social History Smoking Status: Current every day smoker tobacco type: cigarettes ROS Constitutional Constitutional: Reports fatigue and weakness; Denies chills or fever(s) Eyes Eyes: Denies change in vision Cardiovascular Cardiovascular: Denies chest pain Respiratory/Chest Respiratory/Chest: Denies shortness of breath at rest Gastrointestinal Gastrointestinal: Denies abdominal pain Musculoskeletal Musculoskeletal: Reports other Details: Neck pain noted. ; Denies back pain Neurologic Neurologic: Reports headache(s); Denies dizziness Vital Signs Vital Signs Vital Signs: 06/15/24 14:59 06/15/24 15:35 06/15/24 15:35 Temperature 97.7 F L Temperature Source Axillary Pulse Rate 63 48 L Respiratory Rate 22 H 22 H Respiratory Effort Respiratory Pattern Blood Pressure 186/98 H Blood Pressure Mean 127 Pulse Ox 96 97 Oxygen Delivery Method Room Air Nasal Cannula Oxygen Flow Rate (L/min) 2 06/15/24 15:36 06/15/24 16:00 06/15/24 16:42 Temperature Temperature Source Pulse Rate 58 L 56 L Respiratory Rate 21 H 21 H Respiratory Effort Short of Breath Respiratory Pattern Blood Pressure 186/83 H 178/76 H Blood Pressure Mean 117 110 Pulse Ox 96 96 Oxygen Delivery Method Room Air Room Air Oxygen Flow Rate (L/min) 06/15/24 16:43 06/15/24 17:00 06/15/24 17:02 Temperature Temperature Source Pulse Rate 82 Respiratory Rate 24 H Respiratory Effort Short of Breath Respiratory Pattern Tachypnea Blood Pressure 166/79 H Blood Pressure Mean 108 Pulse Ox 96 94 Oxygen Delivery Method Room Air Room Air Nasal Cannula Oxygen Flow Rate (L/min) 2 06/15/24 17:02 06/15/24 17:41 06/15/24 17:52 Temperature Temperature Source Pulse Rate 62 69 74 Respiratory Rate 20 H 23 H 21 H Respiratory Effort Respiratory Pattern Blood Pressure 143/73 H 156/90 H Blood Pressure Mean 96 112 Pulse Ox 93 90 Oxygen Delivery Method Room Air Room Air Oxygen Flow Rate (L/min) 06/15/24 18:00 Temperature Temperature Source Pulse Rate 69 Respiratory Rate 18 Respiratory Effort Respiratory Pattern Blood Pressure 129/54 H Blood Pressure Mean 79 Pulse Ox 93 Oxygen Delivery Method Nasal Cannula Oxygen Flow Rate (L/min) 2 Weight Weight: 101.9 kg Body Mass Index (BMI) 41.1 Physical Exam Const alert and no apparent distress Constitutional Narrative: Elderly female, morbidly obese, alert but very fatigued and somewhat somnolent appearing, alert to person and place but not to time, otherwise laying back fairly comfortably in bed, in no acute distress. General Appearance: cooperative Orientation / Consciousness: lethargic HEENT normocephalic, head/scalp atraumatic, hearing grossly normal bilaterally and nasal mucous membranes and turbinates normal Eyes PERRL, EOMs intact bilaterally and conjunctivae normal Neck full ROM Chest inspection of chest normal Resp normal respiratory effort and no use of accessory muscles Resp Narrative: Breathing comfortably on 2 L nasal cannula at rest. Moderate moderate wheezing noted in upper airways bilaterally. No crackles noted. Otherwise fairly good air movement bilaterally throughout. Cardio regular rate, regular rhythm, no murmurs and peripheral pulses 2+ throughout GI normal to inspection, nondistended, normoactive bowel sounds, soft to palpation, non-tender and non-distended Back/Spine Back/Spine Narrative: Moderate pain noted with palpation of neck and bilateral paraspinal areas. Straight leg raise was negative bilaterally. Extremity normal to inspection and no pedal edema Results Lab / Micro Data 06/15/24 15:11 06/15/24 15:11 Labs: Laboratory Results - last 24 hr 06/15/24 15:01: POC Glucose 83 06/15/24 15:11: WBC 7.6, RBC 4.55, Hgb 15.0, Hct 45.4, MCV 99.8 H, MCH 33.0 H, MCHC 33.0, RDW Std Deviation 46.1 H, RDW Coeff of Arti 12.5, Plt Count 188, MPV 11.3, Immature Gran % (Auto) 0.400, Neut % (Auto) 66.8, Lymph % (Auto) 22.7, Barren % (Auto) 7.5, Eos % (Auto) 2.2, Baso % (Auto) 0.4, Absolute Neuts (auto) 5.1, Absolute Lymphs (auto) 1.72, Nucleated RBC % 0, Sodium 140, Potassium 4.0, Chloride 110 H, Carbon Dioxide 25.0, Anion Gap 5, BUN 11, Creatinine 0.89, Estim Creat Clear Calc 66.70, Est GFR (MDRD) Af Amer 81, Est GFR (MDRD) Non-Af 67, BUN/Creatinine Ratio 12.4, Glucose 94, Calcium 9.5, Total Bilirubin 0.60, AST 28, ALT 31, Alkaline Phosphatase 107, Ammonia 48.0 H, Troponin I High Sens 9, Total Protein 7.2, Albumin 3.8, Globulin 3.4, Albumin/Globulin Ratio 1.1 06/15/24 17:23: Troponin I High Sens 11 ABG Data ABG results: ABG 06/15/24 15:22 Specimen Type ART Sample Site R Radial pH 7.42 Bicarbonate Actual 25.4 Total CO2 27 Base Excess 1 O2 Saturation 93 L ABG pCO2 39.3 ABG pO2 65 L Kwame Test Positive O2 Delivery Device Room Air Vent Mode Not entered Imaging Radiology Impression Brain CT 06/15/24 15:06 IMPRESSION: Moderate periventricular white matter ischemic changes. No mass or acute bleed. If concern for acute infarct MRI recommended Electronically Signed: Benton Haro MD at 17:00 EDT , Chest/Abdomen/Pelvis CT 06/15/24 15:06 IMPRESSION: CT of the chest demonstrates ASHD without evidence for aortic aneurysm. No acute cardiopulmonary pathology CT of the abdomen and pelvis also demonstrated minor diverticular changes of the colon without evidence for acute diverticulitis. There is no evidence for acute abnormality status post cholecystectomy and multilevel spinal fusion the lumbar spine. Electronically Signed: Benton Haro MD at 17:13 EDT Reading Location ID and State: [facility] / [place] Tel , Service support , Assessment & Plan Assessment/Plan (1) Mental status, decreased: (2) COPD exacerbation: PLAN: Plan Patient is a 68-year-old female who presented [facility] ED on 06/15/2024 with worsening mentation and shortness of breath with exertion. 1. Acute metabolic encephalopathy, acute on chronic neck pain, elevated ammonia level ? Admit under inpatient status to PCU. Unclear etiology for acute encephalopathy at this time. Have some degree of concern for ORTHO TECH infection given encephalopathy of unclear origin with apparent worsening neck pain, but patient notably afebrile, hemodynamically stable and with no leukocytosis. Will obtain MRI brain and C-spine for further evaluation. Will hold on antibiotics for now. Unclear reason for elevated ammonia level; no underlying liver disease noted, LFTs normal on admit. Will start p.o. lactulose and monitor for bowel movements and any signs of improvement. UA ordered to rule out UTI. PT/OT/case management consulted. Speech therapy also consulted for both swallow evaluation and cognitive evaluation. N.p.o. status for now. Avoid sedating medications as able. 2. COPD exacerbation with mild hypoxia ? CTA chest with no acute findings but moderate wheezing noted on admission. Requiring 2 L nasal cannula to maintain oxygen saturations in the low 90s. Will treat for COPD exacerbation with IV steroids and scheduled DuoNebs for now. COVID/flu/RSV and respiratory PCR panel ordered. Wean supplemental oxygen as able. Chronic medical conditions: ? Morbid obesity with ISAMAR and pulmonary hypertension: BMI 40 on admit. Complicates hospital course, care and prognosis. Continue home PAP therapy at night and with naps while inpatient. ? CAD s/p stenting, hypertension, hyperlipidemia: Continue home aspirin, Plavix, statin. Holding home lisinopril for now, restart as needed. ? Chronic back and joint pains, anxiety, depression, RLS: Continue home sertraline. Will start home gabapentin and ropinirole at reduced doses on evening of 06/16. Holding home muscle relaxant. ? Hypothyroidism: TSH ordered. Continue home Synthroid. DVT prophylaxis: Lovenox CODE STATUS: Full code, verified Expected disposition: TBD Total clinical time spent by myself addressing the patient's medical issues, reviewing all the data, and collaborating with patient's care team: 55 minutes. Charges/Coding Visit Charges Inpatient E&M: 70519 Init Hosp L2
--- NOTE | 2024-06-15 18:15 | NURSING ---
PCU COPD MOSTELLER
[2024-06-15] MEDS: Acetaminophen 500 MG Tablet 1000 MG PO (18:22)
[2024-06-15 21:32] LABS: Thyroid Stim Hormone (TSH) 2.44 uIU/mL (0.358-3.74)
[2024-06-15] MEDS: Pramipexole Di-HCl 0.5 MG Tablet PO (21:46)
[2024-06-15] MEDS: Atorvastatin Calcium 40 MG Tablet PO (21:46)
[2024-06-15] MEDS: Sertraline 100 MG Tablet 150 MG PO (21:46)
[2024-06-15] MEDS: Ensure Plus High Protein 120 ML LIQUID PO (21:46)
[2024-06-15] MEDS: Lactulose 20 GM/30 ML UDC PO (21:46)
[2024-06-15] MEDS: prednisoLONE eye drops (5 mL) 1 DROP OPTH.BTL 1 DRP RIGHT EYE (21:47)
[2024-06-15 22:04] LABS: Bacteria 0 SEEN /hpf (None Seen); Mucous, Urine 0 SEEN /hpf (<or=2+); Red Blood Cells-Urine 0 SEEN /hpf (0-5); Squamous Epithelial Cells - UA 0 SEEN /hpf (5-10); White Blood Cells 0 SEEN /hpf (0-5)
[2024-06-15 22:06] LABS: Color, Urine Yellow (Yellow); Glucose, Dipstick Normal (Normal); Ketone-Dipstick Negative (Negative); Leukocyte Esterase-Dipstick Negative /ul (Negative); Nitrite-Dipstick Negative (Negative); Occult Blood-Urine Negative /ul (Negative); Protein-Dipstick Negative (Negative); Specific Gravity, Urine 1.005 (1.002-1.030); Urine Bilirubin Dipstick Negative (Negative); Urine Clarity Sl. Cloudy (Clear); Urine Urobilinogen Normal (Normal); Urine pH 6.5 (5.0 - 8.0)
[2024-06-15 22:13] LABS: Hyaline Cast 0-5 SEEN /lpf (0-5)
[2024-06-15] MEDS: Gabapentin 100 MG Capsule PO (23:33)
[2024-06-16] VITALS (10 sets, daily range): BP systolic 130–155; BP diastolic 51–68; PULSE 50–65; RESP 16–20; TEMP 36.1–37.1; O2SAT 93–98
[2024-06-16] MEDS: KETOROLAC TROMETHAMINE RIGHT EYE ×3 (05:46→23:08)
[2024-06-16] MEDS: Levothyroxine 175 MCG Tablet PO (05:46)
[2024-06-16] MEDS: prednisoLONE eye drops (5 mL) 1 DROP OPTH.BTL 1 DRP RIGHT EYE ×3 (05:46→23:08)
[2024-06-16] MEDS: Glycerin/Hypromellose/PEG400 15 ml Bottle 1 DRP EACH EYE ×3 (05:46→23:08)
[2024-06-16] MEDS: Acetaminophen 325 MG Tablet 650 MG PO (05:47)
[2024-06-16 06:49] LABS: Hematocrit 43.7 % (37-47); Hemoglobin 14.6 g/dL (12.0-15.0); Mean Corp Hgb Conc 33.4 g/dL (32-36); Mean Corpuscular Hgb 33.6 pg (27.0-32.0); Mean Corpuscular Volume 100.5 fL (81-99); Mean Platelet Vol. 11.7 fl (6.2-12.0); Platelet Count 198 K/mm3 (150-450); RBC Distribution Width CV 12.3 % (11.6-14.6); RBC Distribution Width SD 46.1 fl (35.1-43.9); Red Blood Count 4.35 M/mm3 (4.2-5.4); White Blood Count 5.5 K/mm3 (4.4-11.0)
[2024-06-16] MEDS: Ipratropium/Albuterol Sulfate 3 ML AMPUL.NEB INHALATION ×2 (07:14→20:51)
[2024-06-16 08:00] LABS: Anion Gap 8 (5-15); BUN 11 mg/dL (7-18); BUN/Creat Ratio 13.3 RATIO (10-20); Calcium,Total 9.7 mg/dL (8.5-10.1); Chloride 109 mmol/L (98-107); Cholesterol 139 mg/dL (200); Creatinine, Serum 0.82 mg/dL (0.55-1.02); EST Glomerular Filtration Rate 73 mL/min (>60); Est Glom Filt Rate - Afr Amer 88 mL/min (>60); Glucose 141 mg/dL (74-106); High Density Lipoprotein 51 mg/dL; Potassium 4.2 mmol/L (3.5-5.1); Sodium Level 139 mmol/L (136-145); Triglycerides 116 mg/dL; Very Low Density Lipoprotein 23 mg/dL (5-40)
--- NOTE | 2024-06-16 08:08 | NURSING ---
06/15/24@0805- updated sofia in radiology about pt having cardiac stents. pt stated she had stents in her heart but was unable to provide further information. pt also stated her would not be able to provide further information.
[2024-06-16] MEDS: Aspirin 81 MG TAB.CHEW PO (08:26)
[2024-06-16] MEDS: 0.9% Saline Lock 10 ML Syringe IV ×3 (08:27→23:07)
[2024-06-16] MEDS: Morphine 2 MG/ML Syringe IV (09:00)
--- NOTE | 2024-06-16 09:00 | MRI_ITS ---
HISTORY: recent injection w/ pain and AMS, eval for infxn. TECHNIQUE: Multiplanar and multisequence MR images of the cervical spine were obtained without contrast. 258 images. COMPARISON: None. FINDINGS: Motion artifact lowers the sensitivity of the examination. VERTEBRAE: Vertebral body heights maintained. Mild degenerative endplate changes of C4-5, C5-6, and C6-7 with endplate destruction or abnormal fluid signal in the intervertebral discs. Mild bone marrow edema in the C7 spinous process. VERTEBRAL ALIGNMENT: No anterior or posterior subluxation. SPINAL CANAL: Cervical cord signal and morphology within normal limits. No gross epidural collection. SOFT TISSUES: No prevertebral fluid collection. INTERVERTEBRAL DISCS: C2-3, C3-4: No significant posterior disc protrusion, central canal stenosis , or foraminal narrowing. C4-5: Mild posterior disc bulge osteophyte complex with uncovertebral and facet arthropathy resulting in mild central canal stenosis and bilateral foraminal narrowing C5-6, C6-7: Mild posterior disc bulge osteophyte complexes with uncovertebral and facet arthropathy resulting in mild central canal stenosis and moderate bilateral foraminal narrowing. C7-T1: No significant posterior disc protrusion, central canal stenosis, or foraminal narrowing. MRI/Spine Cervical (Routine) IMPRESSION: Multilevel degenerative disc disease resulting in mild spinal canal stenosis and mild-moderate bilateral foraminal narrowing as above. Mild bone marrow edema of the C7 spinous process. No evidence of abscess or osteomyelitis-discitis in the cervical spine. Electronically Signed: Earlene Nuñez MD at 11:56 EDT ,
--- NOTE | 2024-06-16 09:00 | MRI_ITS ---
HISTORY: eval for CVA vs meningitis. TECHNIQUE: Multiplanar and multisequence MR images of the brain were obtained without contrast. 319 images. COMPARISON: CT prior day. FINDINGS: BRAIN PARENCHYMA: Multiple foci of increased T2 FLAIR signal in the bilateral central white matter and selena. No abnormal focus of restricted diffusion. No acute intracranial hemorrhage identified. CSF SPACES: Cerebral ventricles, cortical sulci, and other extra-axial CSF spaces within normal limits in size for age. No significant midline shift or other mass effect.No extra-axial fluid collection. Limited evaluation for early meningitis on noncontrast examination. VASCULAR SYSTEM: Major intracranial flow voids are maintained. PARANASAL SINUSES AND MASTOID AIR CELLS: No significant air fluid levels. ORBITS: Bilateral lens resections. MRI/Brain without Contrast IMPRESSION: No evidence for acute infarct. Moderate chronic white matter changes. Electronically Signed: Earlene Nuñez MD at 11:26 EDT ,
[2024-06-16] MEDS: Lactulose 20 GM/30 ML UDC PO (11:18)
[2024-06-16] MEDS: Enoxaparin 40 MG/0.4 ML Syringe SC (11:18)
[2024-06-16] MEDS: Pyridoxine HCl 100 MG Tablet PO (11:19)
[2024-06-16] MEDS: Clopidogrel Bisulfate 75 MG Tablet PO (11:19)
--- NOTE | 2024-06-16 12:22 | PN.HOSP_ITS ---
Subjective Subjective Drowsy resting comfortably with BiPAP Objective Data Objective Data Vital Signs: Vital Signs Temp Pulse Resp BP Pulse Ox O2 Del Method O2 Flow Rate 96.9 F L 56 L 16 133/51 H 93 Nasal Cannula 2 06/16/24 09:15 06/16/24 09:15 06/16/24 09:15 06/16/24 09:15 06/16/24 09:15 06/16/24 10:00 06/16/24 10:00 Oxygen Flow Rate (L/min) 2 Oxygen Delivery Method Nasal Cannula Weight: 220 lb 14.451 oz Body Mass Index (BMI) 40.4 Intake & Output: Intake and Output for Last 24 Hours 06/15/24 06/16/24 06/17/24 03:59 03:59 03:59 Intake Total 1000 / 1000 Output Total 500 / 500 450 / 450 Balance 500 / 500 -450 / -450 Lab / Micro Data 06/16/24 05:58 06/16/24 05:58 Labs: Laboratory Results - last 24 hr 06/15/24 15:01: POC Glucose 83 06/15/24 15:11: WBC 7.6, RBC 4.55, Hgb 15.0, Hct 45.4, MCV 99.8 H, MCH 33.0 H, MCHC 33.0, RDW Std Deviation 46.1 H, RDW Coeff of Arti 12.5, Plt Count 188, MPV 11.3, Immature Gran % (Auto) 0.400, Neut % (Auto) 66.8, Lymph % (Auto) 22.7, [place] % (Auto) 7.5, Eos % (Auto) 2.2, Baso % (Auto) 0.4, Absolute Neuts (auto) 5.1, Absolute Lymphs (auto) 1.72, Nucleated RBC % 0, Sodium 140, Potassium 4.0, Chloride 110 H, Carbon Dioxide 25.0, Anion Gap 5, BUN 11, Creatinine 0.89, Estim Creat Clear Calc 66.70, Est GFR (MDRD) Af Amer 81, Est GFR (MDRD) Non-Af 67, BUN/Creatinine Ratio 12.4, Glucose 94, Calcium 9.5, Total Bilirubin 0.60, AST 28, ALT 31, Alkaline Phosphatase 107, Ammonia 48.0 H, Troponin I High Sens 9, Total Protein 7.2, Albumin 3.8, Globulin 3.4, Albumin/Globulin Ratio 1.1 06/15/24 17:23: Troponin I High Sens 11, TSH 2.44 06/15/24 21:50: Urine Color Yellow, Urine Clarity Sl. Cloudy, Urine pH 6.5, Ur Specific [place] 1.005, Urine Protein Negative, Urine Glucose (UA) Normal, Urine Ketones Negative, Urine Occult Blood Negative, Urine Nitrite Negative, Urine Bilirubin Negative, Urine Urobilinogen Normal, Ur Leukocyte Esterase Negative, Urine RBC 0 SEEN, Urine WBC 0 SEEN, Ur Squamous Epith Cells 0 SEEN, Urine Bacteria 0 SEEN, Hyaline Casts 0-5 SEEN, Urine Mucus 0 SEEN 06/16/24 05:58: WBC 5.5, RBC 4.35, Hgb 14.6, Hct 43.7, MCV 100.5 H, MCH 33.6 H, MCHC 33.4, RDW Std Deviation 46.1 H, RDW Coeff of Arti 12.3, Plt Count 198, MPV 11.7, Sodium 139, Potassium 4.2, Chloride 109 H, Carbon Dioxide 22.0, Anion Gap 8, BUN 11, Creatinine 0.82, Estim Creat Clear Calc 71.70, Est GFR (MDRD) Af Amer 88, Est GFR (MDRD) Non-Af 73, BUN/Creatinine Ratio 13.3, Glucose 141 H, Calcium 9.7, Triglycerides 116, Cholesterol 139, LDL Cholesterol 65, VLDL Cholesterol 23, HDL Cholesterol 51 Micro: Microbiology 06/15/24 21:02 Mucosa - Nasopharyngeal Respiratory Panel (PCR) - Final 06/15/24 21:02 Mucosa - Nasopharyngeal SARS-CoV-2, Influenza & RSV (PCR) - Final ABG Data ABG results: ABG 06/15/24 15:22 Specimen Type ART Sample Site R Radial pH 7.42 Bicarbonate Actual 25.4 Total CO2 27 Base Excess 1 O2 Saturation 93 L ABG pCO2 39.3 ABG pO2 65 L Kwame Test Positive O2 Delivery Device Room Air Vent Mode Not entered Radiography Diagnostic Testing: Radiology Impression Brain CT 06/15/24 15:06 IMPRESSION: Moderate periventricular white matter ischemic changes. No mass or acute bleed. If concern for acute infarct MRI recommended Electronically Signed: Benton Haro MD at 17:00 EDT , Chest/Abdomen/Pelvis CT 06/15/24 15:06 IMPRESSION: CT of the chest demonstrates ASHD without evidence for aortic aneurysm. No acute cardiopulmonary pathology CT of the abdomen and pelvis also demonstrated minor diverticular changes of the colon without evidence for acute diverticulitis. There is no evidence for acute abnormality status post cholecystectomy and multilevel spinal fusion the lumbar spine. Electronically Signed: Benton Haro MD at 17:13 EDT , Brain MRI 06/16/24 09:00 IMPRESSION: No evidence for acute infarct. Moderate chronic white matter changes. Electronically Signed: Earlene Nuñez MD at 11:26 EDT , Cervical Spine MRI 06/16/24 09:00 IMPRESSION: Multilevel degenerative disc disease resulting in mild spinal canal stenosis and mild-moderate bilateral foraminal narrowing as above. Mild bone marrow edema of the C7 spinous process. No evidence of abscess or osteomyelitis-discitis in the cervical spine. Electronically Signed: Earlene Nuñez MD at 11:56 EDT , Physical Exam Narrative General: Alert but drowsy, Oriented x3, Cooperative, No apparent distress HEENT: Atraumatic, PERRLA, EOMI, Normocephalic Oral: Moist Mucosa Neck: Supple, No JVD Lungs: Diminished, Normal air movement, No rhonchi, No wheeze, No rales Cardiovascular: Regular rate, Regular Rhythm, Normal S1, Normal S2, No murmurs Abdomen: Soft, Non Tender, Non-Distended, No Hepato-splenomegaly Extremities: No edema, Capillary Refill Less than 3 Seconds Skin: No rashes, No breakdown Musculoskeletal: No Tenderness to Palpation of Joints or Extremities Neurological: No focal neurological deficits, Motor Exam 5/5 strength throughout, Sensory exam intact to light touch and pain Psych/Mental Status: Normal Affect, Appropriate Assessment & Plan Assessment/Plan (1) Mental status, decreased: (2) COPD exacerbation: PLAN: Plan 1. Acute metabolic encephalopathy of unclear origin at this time with a COPD exacerbation with mild hypoxia and elevated ammonia ? MRI of the brain is pending ? LFTs were normal for unclear reason why the ammonia would be elevated ? BUN and creatinine are also normal and ABG was obtained on admission and she had a pCO2 of 65 with a pCO2 of 39.3 and a normal pH ? Will continue with steroids and breathing treatments as well as BiPAP ? Respiratory panel was unremarkable 2. CAD status post stent/essential HTN/HLD ? Continue with blood pressure medications ? Will monitor make adjustments as necessary ? Continue with the Lipitor and antiplatelets 3. Hypothyroidism ? Stable ? Continue with Synthroid ? TSH is 2.44 4. Chronic back pain/RLS/anxiety/depression ? She was restarted on her home gabapentin ropinirole at reduced doses and her muscle relaxants being held ? Continue with Zoloft DVT: Lovenox Charges/Coding Visit Charges Inpatient E&M: 57001 Subs Hosp L2
--- NOTE | 2024-06-16 12:29 | CASEMGMT ---
Addendum entered by Jane Germain 06/16/24 14:03: Strata: 2 Original Note: MANA EVANGELISTA Assessment: MANA EVANGELISTA to room for initial transition planning/care coordination assessment. MANA EVANGELISTA introduced self and role at [facility]. Pt states she is not feeling well and feels awful hot and states for MANA EVANGELISTA to talk to her . Ayala ADAIR aware of pt's c/o. MANA EVANGELISTA placed call to pt's , Odin, who provided the following information. Care providers, pharmacy, and demographics verified/updated. Strata: PCP:Dr Christie Specialists: Dr Morris, pain mgnt; Dr Layla Rangel, pulm; Dr Kebede, cardio Preferred Pharmacy: [facility] Insurance: [place] [facility] Prescription Benefit: yes LW/HCPOA: Pt has both LW and HCPOA. states thought these were on file @ [facility]. MANA EVANGELISTA informed him they are not and he states he will plan on bringing them in today. LNOK: Odin Santos, Living Arrangements: Pt lives with in a single story home with 2 steps to enter without a rail. Per , pt was I in ADL's prior to hospitalization and does most of the home mgnt tasks, grocery shopping, meals, cleaning, and yard work. usually does the laundry. Transportation: Pt and both drive. DME: Pt has a Bipap. states she does not have any home O2. She has a pulse ox. Pt also has a W/C, standard walker, and FWW available but does not use these. HHC/SNF: Pt has had [facility] HHC in the past. No hx of SNF. Discussed discharge planning. made aware pt did not do well w/therapy today, requiring 2 assist, and only able to take a few steps today. He states his goal is for pt to discharge home, as he is hoping for pt to improve and be able to get back to her baseline prior to discharge. Discussed HHC and he is not sure, stating Soo would have to make that decision. Plan: TBD, pending course of treatment and progress w/therapy. CM/SW to follow. Sammy FERNANDEZ RN, CM
[2024-06-16] MEDS: Sertraline 100 MG Tablet 150 MG PO (23:08)
[2024-06-16] MEDS: Pramipexole Di-HCl 0.5 MG Tablet PO (23:08)
[2024-06-16] MEDS: Atorvastatin Calcium 40 MG Tablet PO (23:08)
[2024-06-16] MEDS: Gabapentin 300 MG Capsule PO (23:09)
[2024-06-17] VITALS (12 sets, daily range): BP systolic 111–150; BP diastolic 57–68; PULSE 47–64; RESP 12–20; TEMP 36.3–36.8; O2SAT 92–97
[2024-06-17 05:38] LABS: Absolute Lymphocyte Count 1.11 X10^3/uL (0.83-4.51); Absolute Neutrophil Count 7.2 X10^3/uL (2.0-7.7); Basophil# 0.01 X10^3/uL; Basophil% 0.1 % (0-1); Hematocrit 44.9 % (37-47); Hemoglobin 14.9 g/dL (12.0-15.0); Lymphocyte # 1.11 X10^3/ul (0.83-4.51); Lymphocyte % 12.7 % (19-41); Mean Corp Hgb Conc 33.2 g/dL (32-36); Mean Corpuscular Hgb 33.2 pg (27.0-32.0); Mean Platelet Vol. 11.3 fl (6.2-12.0); Monocyte# 0.47 X10^3/uL; Monocyte% 5.4 % (0-10); NRBC Flagged by Analyzer 0 % (0-5); Neutrophil # 7.15 X10^3/uL (2.7-7.7); Neutrophil % 81.5 % (47-70); Platelet Count 200 K/mm3 (150-450); RBC Distribution Width CV 12.3 % (11.6-14.6); RBC Distribution Width SD 45.4 fl (35.1-43.9); Red Blood Count 4.49 M/mm3 (4.2-5.4); White Blood Count 8.8 K/mm3 (4.4-11.0)
[2024-06-17] MEDS: Levothyroxine 175 MCG Tablet PO (05:47)
[2024-06-17] MEDS: prednisoLONE eye drops (5 mL) 1 DROP OPTH.BTL 1 DRP RIGHT EYE ×3 (05:48→20:20)
[2024-06-17] MEDS: Glycerin/Hypromellose/PEG400 15 ml Bottle 1 DRP EACH EYE ×3 (05:48→20:21)
[2024-06-17] MEDS: KETOROLAC TROMETHAMINE RIGHT EYE ×3 (05:48→20:21)
[2024-06-17] MEDS: Acetaminophen 325 MG Tablet 650 MG PO ×2 (05:51→20:19)
[2024-06-17 05:59] LABS: Anion Gap 6 (5-15); BUN 19 mg/dL (7-18); BUN/Creat Ratio 21.4 RATIO (10-20); Calcium,Total 9.4 mg/dL (8.5-10.1); Chloride 108 mmol/L (98-107); Creatinine, Serum 0.89 mg/dL (0.55-1.02); EST Glomerular Filtration Rate 67 mL/min (>60); Est Glom Filt Rate - Afr Amer 81 mL/min (>60); Estimated Creatinine Clearance 66.06 ml/min; Glucose 119 mg/dL (74-106); Potassium 3.9 mmol/L (3.5-5.1); Sodium Level 136 mmol/L (136-145)
[2024-06-17] MEDS: Ipratropium/Albuterol Sulfate 3 ML AMPUL.NEB INHALATION ×3 (07:09→15:04)
[2024-06-17] MEDS: Enoxaparin 40 MG/0.4 ML Syringe SC (08:55)
[2024-06-17] MEDS: Aspirin 81 MG TAB.CHEW PO (08:55)
[2024-06-17] MEDS: Clopidogrel Bisulfate 75 MG Tablet PO (08:56)
[2024-06-17] MEDS: Pyridoxine HCl 100 MG Tablet PO (08:57)
--- NOTE | 2024-06-17 09:22 | PN.HOSP_ITS ---
Subjective Subjective More responsive today, still no clear etiology other than potential medication complications given her metaxalone and methocarbamol Objective Data Objective Data Vital Signs: Vital Signs Temp Pulse Resp BP Pulse Ox O2 Del Method O2 Flow Rate 98.0 F 47 L 16 139/60 H 97 Room Air 2 06/17/24 08:00 06/17/24 08:00 06/17/24 08:00 06/17/24 08:00 06/17/24 08:00 06/17/24 09:12 06/17/24 08:00 Oxygen Flow Rate (L/min) 2 Oxygen Delivery Method Room Air Weight: 220 lb 14.451 oz Body Mass Index (BMI) 40.4 Intake & Output: Intake and Output for Last 24 Hours 06/16/24 06/17/24 06/18/24 03:59 03:59 03:59 Intake Total 1000 / 1000 100 / 100 Output Total 500 / 500 850 / 850 150 / 150 Balance 500 / 500 -750 / -750 -150 / -150 Lab / Micro Data 06/17/24 05:30 06/17/24 05:30 Labs: Laboratory Results - last 24 hr 06/17/24 05:30: WBC 8.8, RBC 4.49, Hgb 14.9, Hct 44.9, MCV 100.0 H, MCH 33.2 H, MCHC 33.2, RDW Std Deviation 45.4 H, RDW Coeff of Arti 12.3, Plt Count 200, MPV 11.3, Immature Gran % (Auto) 0.300, Neut % (Auto) 81.5 H, Lymph % (Auto) 12.7 L, [place] % (Auto) 5.4, Eos % (Auto) 0.0, Baso % (Auto) 0.1, Absolute Neuts (auto) 7.2, Absolute Lymphs (auto) 1.11, Nucleated RBC % 0, Sodium 136, Potassium 3.9, Chloride 108 H, Carbon Dioxide 22.0, Anion Gap 6, BUN 19 H, Creatinine 0.89, Estim Creat Clear Calc 66.06, Est GFR (MDRD) Af Amer 81, Est GFR (MDRD) Non-Af 67, BUN/Creatinine Ratio 21.4 H, Glucose 119 H, Calcium 9.4 Micro: Microbiology 06/15/24 21:02 Mucosa - Nasopharyngeal Respiratory Panel (PCR) - Final 06/15/24 21:02 Mucosa - Nasopharyngeal SARS-CoV-2, Influenza & RSV (PCR) - Final Radiography Diagnostic Testing: Radiology Impression Brain MRI 06/16/24 09:00 IMPRESSION: No evidence for acute infarct. Moderate chronic white matter changes. Electronically Signed: Earlene Nuñez MD at 11:26 EDT Reading Location ID and State: [facility] / [place] Tel , Service support , Cervical Spine MRI 06/16/24 09:00 IMPRESSION: Multilevel degenerative disc disease resulting in mild spinal canal stenosis and mild-moderate bilateral foraminal narrowing as above. Mild bone marrow edema of the C7 spinous process. No evidence of abscess or osteomyelitis-discitis in the cervical spine. Electronically Signed: Earlene Nuñez MD at 11:56 EDT , Physical Exam Narrative General: Alert but drowsy, Oriented x3, Cooperative, No apparent distress HEENT: Atraumatic, PERRLA, EOMI, Normocephalic Oral: Moist Mucosa Neck: Supple, No JVD Lungs: Diminished, Normal air movement, No rhonchi, No wheeze, No rales Cardiovascular: Regular rate, Regular Rhythm, Normal S1, Normal S2, No murmurs Abdomen: Soft, Non Tender, Non-Distended, No Hepato-splenomegaly Extremities: No edema, Capillary Refill Less than 3 Seconds Skin: No rashes, No breakdown Musculoskeletal: No Tenderness to Palpation of Joints or Extremities Neurological: No focal neurological deficits, Motor Exam 5/5 strength throughout, Sensory exam intact to light touch and pain Psych/Mental Status: Normal Affect, Appropriate Assessment & Plan Assessment/Plan (1) Mental status, decreased: (2) COPD exacerbation: PLAN: Plan 1. Acute metabolic encephalopathy of unclear origin at this time with a COPD exacerbation with mild hypoxia and elevated ammonia ? MRI of the brain and C-spine were unremarkable, the C-spine MRI does show some mild foraminal narrowing which would explain her right-sided neck pain and referred shoulder pain ? LFTs were normal for unclear reason why the ammonia would be elevated ? BUN and creatinine are also normal and ABG was obtained on admission and she had a pCO2 of 65 with a pCO2 of 39.3 and a normal pH ? Will continue with steroids and breathing treatments as well as BiPAP ? Respiratory panel was unremarkable 2. CAD status post stent/essential HTN/HLD ? Continue with blood pressure medications ? Will monitor make adjustments as necessary ? Continue with the Lipitor and antiplatelets 3. Hypothyroidism ? Stable ? Continue with Synthroid ? TSH is 2.44 4. Chronic back pain/RLS/anxiety/depression ? She was restarted on her home gabapentin ropinirole at reduced doses and her muscle relaxants being held ? Continue with Zoloft DVT: Lovenox Charges/Coding Visit Charges Inpatient E&M: 26312 Subs Hosp L2
--- NOTE | 2024-06-17 17:25 | CASEMGMT ---
Addendum entered by Jane Germain 06/17/24 17:39: Correction. Pt ambulated 12 ft today w/min assist of 2. Addendum entered by Jane Germain 06/17/24 17:39: Per therapy note, pt only able to ambulate 10 ft today. WW was encouraged by therapy but pt did not want to use. MANA EVANGELISTA spoke w/pt about this and she states at this time that she may benefit using it and states she would be agreeable to use one while in the hospital. She does confirm she has 2 walkers @ home available once she discharges. Original Note: MANA EVANGELISTA NOTE: MANA EVANGELISTA to room to discuss discharge planning. Pt states she does not want to go to a SNF, she wants to go home. She would like [facility] and declines wanting list of other HHC options unless [facility] unable to accept her. Call placed to [facility] referral line and VM left. Pt made aware HHC is not able to be set up over the weekend but CM or dc assistant research scientist will f/u on Wednesday and further assist if needed. She voices understanding. Discussed possible need of Home o2 @ dc. Pt chooses [employer] for DME co if she qualifies. She was made aware of home O2 set-up process. She voices understanding. Sammy FERNANDEZ RN, CM
[2024-06-17] MEDS: Ondansetron 4 MG/2 ML Vial IV (19:26)
[2024-06-17] MEDS: 0.9% Saline Lock 10 ML Syringe IV (19:26)
[2024-06-17] MEDS: Pramipexole Di-HCl 0.5 MG Tablet PO (20:16)
[2024-06-17] MEDS: Sertraline 100 MG Tablet 150 MG PO (20:16)
[2024-06-17] MEDS: Atorvastatin Calcium 40 MG Tablet PO (20:16)
[2024-06-17] MEDS: Gabapentin 300 MG Capsule PO (20:19)
--- NOTE | 2024-06-17 23:23 | CPS ---
Patient stated she was feeling sick and did not want her breathing Tx at this time, CHIEF CLERK SHELTER notified RN of this
[2024-06-18] VITALS (11 sets, daily range): BP systolic 131–166; BP diastolic 47–79; PULSE 48–63; RESP 14–20; TEMP 35.7–36.7; O2SAT 90–98
[2024-06-18] MEDS: Levothyroxine 175 MCG Tablet PO (05:01)
[2024-06-18] MEDS: prednisoLONE eye drops (5 mL) 1 DROP OPTH.BTL 1 DRP RIGHT EYE ×2 (05:03→20:22)
[2024-06-18] MEDS: Glycerin/Hypromellose/PEG400 15 ml Bottle 1 DRP EACH EYE ×2 (05:03→20:23)
[2024-06-18] MEDS: KETOROLAC TROMETHAMINE RIGHT EYE ×2 (05:05→20:23)
[2024-06-18 06:04] LABS: Absolute Lymphocyte Count 2.68 X10^3/uL (0.83-4.51); Absolute Neutrophil Count 4.7 X10^3/uL (2.0-7.7); Basophil# 0.01 X10^3/uL; Basophil% 0.1 % (0-1); Eosinophil# 0.05 X10^3/uL; Eosinophils% 0.6 % (0-5); Hematocrit 44.3 % (37-47); Hemoglobin 14.6 g/dL (12.0-15.0); Lymphocyte # 2.68 X10^3/ul (0.83-4.51); Lymphocyte % 33.7 % (19-41); Mean Corpuscular Volume 100.2 fL (81-99); Mean Platelet Vol. 11.8 fl (6.2-12.0); Monocyte# 0.52 X10^3/uL; Monocyte% 6.5 % (0-10); NRBC Flagged by Analyzer 0 % (0-5); Neutrophil # 4.68 X10^3/uL (2.7-7.7); Neutrophil % 58.8 % (47-70); Platelet Count 202 K/mm3 (150-450); RBC Distribution Width CV 12.3 % (11.6-14.6); RBC Distribution Width SD 45.7 fl (35.1-43.9); Red Blood Count 4.42 M/mm3 (4.2-5.4)
[2024-06-18] MEDS: Ipratropium/Albuterol Sulfate 3 ML AMPUL.NEB INHALATION ×4 (06:40→19:18)
[2024-06-18 08:24] LABS: Anion Gap 7 (5-15); BUN 25 mg/dL (7-18); BUN/Creat Ratio 26.9 RATIO (10-20); Chloride 110 mmol/L (98-107); Creatinine, Serum 0.93 mg/dL (0.55-1.02); EST Glomerular Filtration Rate 63 mL/min (>60); Est Glom Filt Rate - Afr Amer 77 mL/min (>60); Estimated Creatinine Clearance 63.22 ml/min; Glucose 89 mg/dL (74-106); Potassium 3.6 mmol/L (3.5-5.1); Sodium Level 142 mmol/L (136-145)
[2024-06-18] MEDS: predniSONE 20 MG Tablet 40 MG PO (09:45)
[2024-06-18] MEDS: Aspirin 81 MG TAB.CHEW PO (09:46)
[2024-06-18] MEDS: Pyridoxine HCl 100 MG Tablet PO (09:46)
[2024-06-18] MEDS: Clopidogrel Bisulfate 75 MG Tablet PO (09:46)
[2024-06-18] MEDS: Enoxaparin 40 MG/0.4 ML Syringe SC (09:47)
--- NOTE | 2024-06-18 15:29 | PCM.PN.HOSP ---
Subjective Subjective She appears to be back to baseline however were struggling in convincing her to go to a snf which is likely the best place for her given her weakness Objective Data Objective Data Vital Signs: Vital Signs Temp Pulse Resp BP Pulse Ox O2 Del Method O2 Flow Rate 98.0 F 59 L 16 131/66 H 93 Room Air 0 06/18/24 09:00 06/18/24 14:31 06/18/24 14:31 06/18/24 09:00 06/18/24 13:23 06/18/24 09:48 06/18/24 13:23 Oxygen Flow Rate (L/min) [ 0 AMBULATING on Room Air] Oxygen Flow Rate (L/min) [At 0 REST on Room Air] Oxygen Flow Rate (L/min) 2 Oxygen Delivery Method Room Air Weight: 220 lb 14.451 oz Body Mass Index (BMI) 40.4 Intake & Output: Intake and Output for Last 24 Hours 06/17/24 06/18/24 06/19/24 03:59 03:59 03:59 Intake Total 100 / 100 340 / 340 120 / 120 Output Total 850 / 850 750 / 750 350 / 350 Balance -750 / -750 -410 / -410 -230 / -230 Lab / Micro Data 06/18/24 05:15 06/18/24 05:15 Labs: Laboratory Results - last 24 hr 06/18/24 05:15: WBC 8.0, RBC 4.42, Hgb 14.6, Hct 44.3, MCV 100.2 H, MCH 33.0 H, MCHC 33.0, RDW Std Deviation 45.7 H, RDW Coeff of Arti 12.3, Plt Count 202, MPV 11.8, Immature Gran % (Auto) 0.300, Neut % (Auto) 58.8, Lymph % (Auto) 33.7, [place] % (Auto) 6.5, Eos % (Auto) 0.6, Baso % (Auto) 0.1, Absolute Neuts (auto) 4.7, Absolute Lymphs (auto) 2.68, Nucleated RBC % 0, Sodium 142, Potassium 3.6, Chloride 110 H, Carbon Dioxide 25.0, Anion Gap 7, BUN 25 H, Creatinine 0.93, Estim Creat Clear Calc 63.22, Est GFR (MDRD) Af Amer 77, Est GFR (MDRD) Non-Af 63, BUN/Creatinine Ratio 26.9 H, Glucose 89, Calcium 9.0 Micro: Microbiology 06/15/24 21:02 Mucosa - Nasopharyngeal Respiratory Panel (PCR) - Final 06/15/24 21:02 Mucosa - Nasopharyngeal SARS-CoV-2, Influenza & RSV (PCR) - Final Physical Exam Narrative General: Alert, Oriented x3, Cooperative, No apparent distress HEENT: Atraumatic, PERRLA, EOMI, Normocephalic Oral: Moist Mucosa Neck: Supple, No JVD Lungs: Diminished, Normal air movement, No rhonchi, No wheeze, No rales Cardiovascular: Regular rate, Regular Rhythm, Normal S1, Normal S2, No murmurs Abdomen: Soft, Non Tender, Non-Distended, No Hepato-splenomegaly Extremities: No edema, Capillary Refill Less than 3 Seconds Skin: No rashes, No breakdown Musculoskeletal: No Tenderness to Palpation of Joints or Extremities Neurological: No focal neurological deficits, Motor Exam 5/5 strength throughout, Sensory exam intact to light touch and pain Psych/Mental Status: Normal Affect, Appropriate Assessment & Plan Assessment/Plan (1) Mental status, decreased: (2) COPD exacerbation: PLAN: Plan 1. Acute metabolic encephalopathy of unclear origin at this time with a COPD exacerbation with mild hypoxia and elevated ammonia ? MRI of the brain and C-spine were unremarkable, the C-spine MRI does show some mild foraminal narrowing which would explain her right-sided neck pain and referred shoulder pain ? LFTs were normal for unclear reason why the ammonia would be elevated ? BUN and creatinine are also normal and ABG was obtained on admission and she had a pCO2 of 65 with a pCO2 of 39.3 and a normal pH ? Will continue with steroids and breathing treatments as well as BiPAP, this was transitioned to prednisone ? Respiratory panel was unremarkable ?PT/OT recommending SNF placement she does not want to go not safe to go home, awaiting to see whether or not he feels he could take her home 2. CAD status post stent/essential HTN/HLD ? Continue with blood pressure medications ? Will monitor make adjustments as necessary ? Continue with the Lipitor and antiplatelets 3. Hypothyroidism ? Stable ? Continue with Synthroid ? TSH is 2.44 4. Chronic back pain/RLS/anxiety/depression ? She was restarted on her home gabapentin ropinirole at reduced doses and her muscle relaxants being held ? Continue with Zoloft DVT: Lovenox Charges/Coding Visit Charges Inpatient E&M: 31507 Subs Hosp L2
[2024-06-18] MEDS: Acetaminophen 325 MG Tablet 650 MG PO (16:21)
--- NOTE | 2024-06-18 19:19 | CPS ---
2L oxygen blid in with Sleep lab bipap machine
[2024-06-18] MEDS: Gabapentin 300 MG Capsule PO (20:23)
[2024-06-18] MEDS: Sertraline 100 MG Tablet 150 MG PO (20:24)
[2024-06-18] MEDS: Pramipexole Di-HCl 0.5 MG Tablet PO (20:24)
[2024-06-18] MEDS: Atorvastatin Calcium 40 MG Tablet PO (20:24)
[2024-06-18] MEDS: Lisinopril 20 MG Tablet PO (22:56)
[2024-06-19 02:45] VITALS: BP 151/62; PULSE 51; RESP 18; TEMP 35.9; O2SAT 94
[2024-06-19] MEDS: Levothyroxine 175 MCG Tablet PO (05:33)
[2024-06-19] MEDS: prednisoLONE eye drops (5 mL) 1 DROP OPTH.BTL 1 DRP RIGHT EYE ×2 (05:34→13:32)
[2024-06-19] MEDS: KETOROLAC TROMETHAMINE RIGHT EYE ×2 (05:34→13:32)
[2024-06-19] MEDS: Glycerin/Hypromellose/PEG400 15 ml Bottle 1 DRP EACH EYE ×2 (05:34→13:32)
[2024-06-19 07:19] VITALS: PULSE 60; RESP 18; O2SAT 93
[2024-06-19] MEDS: Ipratropium/Albuterol Sulfate 3 ML AMPUL.NEB INHALATION ×2 (07:20→11:24)
[2024-06-19 08:45] VITALS: BP 140/61; PULSE 54; RESP 18; TEMP 35.8; O2SAT 93
[2024-06-19] MEDS: Enoxaparin 40 MG/0.4 ML Syringe SC (09:04)
[2024-06-19] MEDS: Lisinopril 10 MG Tablet 30 MG PO (09:04)
[2024-06-19] MEDS: predniSONE 20 MG Tablet 40 MG PO (09:04)
[2024-06-19] MEDS: Clopidogrel Bisulfate 75 MG Tablet PO (09:04)
[2024-06-19] MEDS: Aspirin 81 MG TAB.CHEW PO (09:04)
[2024-06-19] MEDS: Pyridoxine HCl 100 MG Tablet PO (09:05)
--- NOTE | 2024-06-19 10:26 | DCINST_ITS ---
Discharge Instructions Diet Discharge Diet: Low fat / Low cholesterol Activity Discharge Activity: Return to Normal Activity Dressing / Incision Call your doctor if you observe: Fever of 101 or Higher, Shortness of breath, Dizziness, Fainting spells, Swelling in the ankles, Chest pain and Increased palpitations (irregular heartbeat) Follow Up Care Test Results: Test results from this visit will be discussed in further detail at your follow- up appointment, if applicable. Discharge Plan Admission Admit Date/Time: 06/15/24 18:09 Attending Provider: Solomon Calderón Primary Care Provider: Meme Christie Consulting Providers: Adán Sanderson Discharge Orders/Prescriptions Prescriptions: Continued levothyroxine 175 MCG tablet 175 mcg PO DAILY sertraline 100 MG tablet 150 mg PO QHS atorvastatin 40 mg tablet 40 mg PO DAILY lisinopril 20 mg tablet 30 mg PO DAILY clopidogrel 75 mg tablet 75 mg PO DAILY aspirin 81 mg Tablet,Chewable 81 mg PO DAILY albuterol sulfate 90 mcg/actuation HFA aerosol inhaler 2 puff INHALATION Q4H PRN PRN (Reason: BREATHING) budesonide-formoterol [Symbicort] 160-4.5 mcg/actuation HFA aerosol inhaler 2 puff INHALATION BID Patient Comments: inhale 2 puffs BY MOUTH TWICE DAILY pyridoxine (vitamin B6) [Vitamin B-6] 100 mg tablet 100 mg PO DAILY coenzyme Q10 10 mg capsule 10 mg PO DAILY ketorolac 0.5 % drops 1 drp ophthalmic (eye) TID Rx Instructions: Right Eye prednisolone acetate 1 % drops,suspension 1 drp ophthalmic (eye) TID Rx Instructions: Right eye systane lubricant eye drop 1 drp ophthalmic (eye) 3XD Rx Instructions: Both eyes Changed gabapentin 600 MG tablet 300 mg PO QHS 30 Days Qty: 0 0RF ropinirole 2 mg Tablet Extended Release 24 Hr 0.5 mg PO QHS 30 Days Qty: 0 0RF Discontinued metaxalone 400 mg tablet 400 mg PO QHS methocarbamol 500 mg tablet 500 - 1,000 mg PO TID PRN PRN (Reason: Muscle spasms) Referrals / Follow Up: Audi Morris DO [Non-Staff] - 08/17/24 8:00 am Meme Christie MD [Primary Care Provider] - Disposition Disposition (needs filled in before D/C Order can be placed): Home, Self Care
--- NOTE | 2024-06-19 11:05 | PHA.DC.MR.R ---
Pharmacy [place] Med Reconciliation Pharmacy Service has performed discharge medication reconciliation for this patient. The patient's discharge medication list was reviewed for discrepancies and discrepancies were resolved. Medications at Discharge Home Medications levothyroxine 175 mcg tablet 175 mcg PO DAILY Thyroid 05/31/15 sertraline 100 mg tablet 150 mg PO QHS Depression 05/31/15 albuterol sulfate 90 mcg/actuation aerosol inhaler 2 puff inhalation Q4H PRN PRN BREATHING 01/09/23 aspirin 81 mg chewable tablet 81 mg PO DAILY HEART HEALTH 01/09/23 atorvastatin 40 mg tablet 40 mg PO DAILY CHOLESTEROL 01/09/23 budesonide-formoterol HFA 160 mcg-4.5 mcg/actuation aerosol inhaler (Symbicort) 2 puff inhalation BID SOB 01/09/23 clopidogrel 75 mg tablet 75 mg PO DAILY anti platelet 01/09/23 lisinopril 20 mg tablet 30 mg PO DAILY HTN 01/09/23 coenzyme Q10 10 mg capsule 10 mg PO DAILY Supplement 03/13/24 pyridoxine (vitamin B6) 100 mg tablet (Vitamin B-6) 100 mg PO DAILY Supplement 03/13/24 ketorolac 0.5 % eye drops 1 drp ophthalmic (eye) TID Cataracts 06/15/24 prednisolone acetate 1 % eye drops,suspension 1 drp ophthalmic (eye) TID Cataracts 06/15/24 systane lubricant eye drop 1 drp ophthalmic (eye) 3XD Cataracts 06/15/24 gabapentin 600 mg tablet 300 mg (1/2 x 600 mg) PO QHS Neuropathy 30 days #0 tabs 06/19/24 ropinirole 2 mg tablet,extended release 24 hr 0.5 mg (1/4 x 2 mg) PO QHS Restless legs 30 days #0 tabs 06/19/24
[2024-06-19 11:29] VITALS: PULSE 65; RESP 18
--- NOTE | 2024-06-19 11:58 | CASEMGMT ---
Patient has order for discharge. MANA EVANGELISTA called [facility] and they are able to accept with start of care for Wednesday if patient is agreeable with start of care for then. MANA EVANGELISTA in to discuss discharge with patient. Patient is agreeable to Wednesday start of care. Patient denies further needs or help at discharge. Patient had no further questions or concerns. Discharge plan updated. MANA EVANGELISTA updated [facility].
[2024-06-19 13:36] VITALS: BP 163/66; PULSE 67; RESP 18; TEMP 35.9; O2SAT 94
--- NOTE | 2024-06-19 15:18 | PCM.DC.SUM ---
Providers Date of Admission: 06/15/24 Primary Care Physician: Dr. Meme Christie MD Reason For Visit: COPD EXACERBATION, ALTERED MENTATION Diagnosis Discharge Diagnosis (1) Mental status, decreased: Status: Acute Code(s): R41.82 - Altered mental status, unspecified (2) COPD exacerbation: Status: Chronic Code(s): J44.1 - Chronic obstructive pulmonary disease with (acute) exacerbation Medications at Discharge Home Medications levothyroxine 175 mcg tablet 175 mcg PO DAILY Thyroid 05/31/15 sertraline 100 mg tablet 150 mg PO QHS Depression 05/31/15 albuterol sulfate 90 mcg/actuation aerosol inhaler 2 puff inhalation Q4H PRN PRN BREATHING 01/09/23 aspirin 81 mg chewable tablet 81 mg PO DAILY HEART HEALTH 01/09/23 atorvastatin 40 mg tablet 40 mg PO DAILY CHOLESTEROL 01/09/23 budesonide-formoterol HFA 160 mcg-4.5 mcg/actuation aerosol inhaler (Symbicort) 2 puff inhalation BID SOB 01/09/23 clopidogrel 75 mg tablet 75 mg PO DAILY anti platelet 01/09/23 lisinopril 20 mg tablet 30 mg PO DAILY HTN 01/09/23 coenzyme Q10 10 mg capsule 10 mg PO DAILY Supplement 03/13/24 pyridoxine (vitamin B6) 100 mg tablet (Vitamin B-6) 100 mg PO DAILY Supplement 03/13/24 ketorolac 0.5 % eye drops 1 drp ophthalmic (eye) TID Cataracts 06/15/24 prednisolone acetate 1 % eye drops,suspension 1 drp ophthalmic (eye) TID Cataracts 06/15/24 systane lubricant eye drop 1 drp ophthalmic (eye) 3XD Cataracts 06/15/24 gabapentin 600 mg tablet 300 mg (1/2 x 600 mg) PO QHS Neuropathy 30 days #0 tabs 06/19/24 ropinirole 2 mg tablet,extended release 24 hr 0.5 mg (1/4 x 2 mg) PO QHS Restless legs 30 days #0 tabs 06/19/24 Hospital Course Operations None Procedures None Summary of Care Provided Minutes Spent on Discharge: 35 Hospital Course: Per HPI: RITCHIE QUEEN, is a 68 F who presented to [facility] ED on 06/15/2024 with multiple concerns including altered mentation with neck pain and worsening shortness of breath with wheezing. brought patient into the ED. On arrival, patient was able to tell the ED physician her name but was unable to say where she was or what the year was. She was very fatigued appearing at that time and somewhat somnolent appearing. ABG was obtained and was normal, pH 7.42 and CO2 39. CBC and CMP were unremarkable. Ammonia level was found to be mildly elevated at [address] unclear [address] CT brain was nonacute. CTA chest abdomen pelvis was also essentially unremarkable. Patient did have audible wheezing on exam and was given a breathing treatment and a dose of IV steroids. Hospitalist was then contacted for admission. I saw the patient at bedside in the ED, present at bedside. Patient was laying back comfortably in bed but was very fatigued appearing and somewhat somnolent. She was hardly able to open her eyes for me but did tell me her name and that she was in the hospital. Did not know which hospital she was in or the year. She noted that she had a headache with neck pain and bilateral shoulder pain. She denied pain or discomfort anywhere else. She did note that she felt very tired. Per the , patient was out mowing the lawn and doing things around the house as recently as 3 days ago. He was concerned that she overdid it leading to significant fatigue. She has apparently had somewhat similar episodes in the past but not to this degree. She notably has history of chronic bilateral shoulder pain with 1 shoulder replacement and 1 shoulder repaired, with shoulder repair being sometime last year per the . She also has history of chronic neck pain and follows with Dr. Salvador with pain management. Has been notes that she receives pain injections with Dr. Morris and that last one was around 1 to 2 months ago he thinks. On chart review, she last saw Dr. Salvador on 03/13. He has diagnosis of cervical spondylosis, cervical DDD and cervical facet arthropathy. She had left-sided radiofrequency ablation of the medial branches of C3-C6 done at that time. She previously had left-sided cervical medial branch block done in September 2023 and right sided cervical medial branch block done in August 2023. Patient will be admitted for further management. Hospital Course: 1. Acute toxic encephalopathy secondary to medications?68-year-old female presented to the hospital secondary to altered mental status with concerns for possible COPD exacerbation and shortness of breath. ABG was unremarkable did not show an elevated pCO2 but she did have a slightly elevated ammonia with normal LFTs and she was given 2 doses of lactulose before she refused to take any more because of the diarrhea. Her pain medication was held on admission which includes metaxalone and methocarbamol. Her ropinirole was decreased and her gabapentin was decreased as well. After about 48 hours in the hospital she started to become more alert and oriented. Per she did return to baseline on the day of discharge. She was quickly titrated off of steroids as it did become evident that she was likely not having a COPD exacerbation this was not the reason for her altered mental status. Given the fact that she is also been 3 days without lactulose it likely was not the ammonia level either as she continued to improve. I discussed with her the need to discontinue these medications and to only have 1 doctor prescribing her any kind of pain medication and to make an appointment with pain management which she did for this . She did have physical therapy while here in the hospital that recommended SNF placement however she and her were adamant about going home and he felt that he would be able to take care of her at home. I discussed with him the plan for discharge today and expressed understanding of the risk benefits of going home and would like to go today. Of note MRI of the brain was negative and MRI of the C-spine demonstrated multilevel disc disease with mild to moderate bilateral foraminal narrowing from C4-C7. 2. Coronary artery disease status post stent, essential hypertension, hyperlipidemia, hypothyroidism, chronic back pain, RLS, anxiety, depression are all chronic medical conditions which complicate her care. Her home medications were continued where appropriate Physical Exam Narrative General: Alert, Oriented x3, Cooperative, No apparent distress HEENT: Atraumatic, PERRLA, EOMI, Normocephalic Oral: Moist Mucosa Neck: Supple, No JVD Lungs: Diminished, Normal air movement, No rhonchi, No wheeze, No rales Cardiovascular: Regular rate, Regular Rhythm, Normal S1, Normal S2, No murmurs Abdomen: Soft, Non Tender, Non-Distended, No Hepato-splenomegaly Extremities: No edema, Capillary Refill Less than 3 Seconds Skin: No rashes, No breakdown Musculoskeletal: No Tenderness to Palpation of Joints or Extremities Neurological: No focal neurological deficits, Motor Exam 5/5 strength throughout, Sensory exam intact to light touch and pain Psych/Mental Status: Normal Affect, Appropriate Weight / BMI Weight Weight: 220 lb 14.451 oz Body Mass Index (BMI) 40.4 ABG / Lab / Microbiology Data 06/18/24 05:15 06/18/24 05:15 Microbiology: Microbiology 06/15/24 21:02 Mucosa - Nasopharyngeal Respiratory Panel (PCR) - Final 06/15/24 21:02 Mucosa - Nasopharyngeal SARS-CoV-2, Influenza & RSV (PCR) - Final D/C Instructions Discharge Diet: Low fat / Low cholesterol Call your doctor if you observe: Fever of 101 or Higher, Shortness of breath, Dizziness, Fainting spells, Swelling in the ankles, Chest pain and Increased palpitations (irregular heartbeat) Meaningful Use Info Meaningful Use Meaningful Use Diagnoses (Choose all that apply): None applicable Ischemic Stroke Statin Dosing Therapy Reference: STATIN DOSE THERAPY REFERENCE: * Patients > 75 years receive moderate or high dose statin therapy. * Patients 75 years or YOUNGER should receive HIGH intensity statin dose unless contraindicated. You will be required to document reason for non-treatment if statin daily dose does not meet guidelines. HIGH DOSE STATIN THERAPY DAILY Atorvastatin > than or = to 40 mg Rosuvastatin > than or = to 20 mg Amlodipine + Atorvastatin > than or = to 2.5/40 mg Ezetimibe + Simvastatin 10/80 mg Simvastatin 80mg Discharge Plan Admission Admit Date/Time: 06/15/24 18:09 Attending Provider: Solomon Calderón Primary Care Provider: Meme Christie Consulting Providers: Adán Sanderson Discharge Orders/Prescriptions Prescriptions: Continued levothyroxine 175 MCG tablet 175 mcg PO DAILY sertraline 100 MG tablet 150 mg PO QHS atorvastatin 40 mg tablet 40 mg PO DAILY lisinopril 20 mg tablet 30 mg PO DAILY clopidogrel 75 mg tablet 75 mg PO DAILY aspirin 81 mg Tablet,Chewable 81 mg PO DAILY albuterol sulfate 90 mcg/actuation HFA aerosol inhaler 2 puff INHALATION Q4H PRN PRN (Reason: BREATHING) budesonide-formoterol [Symbicort] 160-4.5 mcg/actuation HFA aerosol inhaler 2 puff INHALATION BID Patient Comments: inhale 2 puffs BY MOUTH TWICE DAILY pyridoxine (vitamin B6) [Vitamin B-6] 100 mg tablet 100 mg PO DAILY coenzyme Q10 10 mg capsule 10 mg PO DAILY ketorolac 0.5 % drops 1 drp ophthalmic (eye) TID Rx Instructions: Right Eye prednisolone acetate 1 % drops,suspension 1 drp ophthalmic (eye) TID Rx Instructions: Right eye systane lubricant eye drop 1 drp ophthalmic (eye) 3XD Rx Instructions: Both eyes Changed gabapentin 600 MG tablet 300 mg PO QHS 30 Days Qty: 0 0RF ropinirole 2 mg Tablet Extended Release 24 Hr 0.5 mg PO QHS 30 Days Qty: 0 0RF Discontinued metaxalone 400 mg tablet 400 mg PO QHS methocarbamol 500 mg tablet 500 - 1,000 mg PO TID PRN PRN (Reason: Muscle spasms) Referrals / Follow Up: Benton Salvador MD [Med Staff - Active Staff] - 06/22/24 9:15 am Meme Christie MD [Primary Care Provider] - Disposition Disposition (needs filled in before D/C Order can be placed): Home Health Service Charges/Coding Visit Charges Inpatient E&M: 49963 Disch Hosp >30min
== END 2024-06-19 14:56 | disposition home or self-care (01) | DRG 92 ==
LOC: ED 18:13 → PCU 18:33
PROVIDERS: Admitting Provider Hospitalist; Emergency Provider Emergency Medicine; PCP Internal Medicine; Visit Provider Family Medicine
DX: G92.8 Other toxic encephalopathy (principal); E72.20 Disorder of urea cycle metabolism, unspecified; Z68.41 Body mass index [BMI] 40.0-44.9, adult; I27.20 Pulmonary hypertension, unspecified; E03.9 Hypothyroidism, unspecified; F32.A Depression, unspecified; G25.81 Restless legs syndrome; E66.01 Morbid (severe) obesity due to excess calories; E78.5 Hyperlipidemia, unspecified; G47.33 Obstructive sleep apnea (adult) (pediatric); F41.9 Anxiety disorder, unspecified; I25.10 Atherosclerotic heart disease of native coronary artery without angina pectoris; M48.02 Spinal stenosis, cervical region; R19.7 Diarrhea, unspecified; M50.30 Other cervical disc degeneration, unspecified cervical region; M47.812 Spondylosis without myelopathy or radiculopathy, cervical region; F17.210 Nicotine dependence, cigarettes, uncomplicated; I25.2 Old myocardial infarction; T48.1X5A Adverse effect of skeletal muscle relaxants [neuromuscular blocking agents], initial encounter; R09.02 Hypoxemia; G89.29 Other chronic pain; Z79.82 Long term (current) use of aspirin; Z79.02 Long term (current) use of antithrombotics/antiplatelets; Z79.51 Long term (current) use of inhaled steroids; Z79.890 Hormone replacement therapy; Z79.899 Other long term (current) drug therapy; Z95.5 Presence of coronary angioplasty implant and graft; Z96.619 Presence of unspecified artificial shoulder joint
CPT/HCPCS: 36415; 36600; 70450; 70551; 71260; 72141; 74177; 80048; 80053; 80061; 81001; 82140; 82803; 82962; 84443; 84484; 85025; 85027; 87631; 87633; 93005; 94002; 94003; 94640; 97162; 97166; 97530; 97535; 97802; 99285; 99406; J7030; Q9967; A4216; J2405

== ENCOUNTER → 2024-06-27 | Outpatient (CLI) | payer MEDICARE, SELFPAY ==
[2024-06-27 18:26] LABS: Color, Urine Yellow (Yellow); Glucose, Dipstick Normal (Normal); Ketone-Dipstick Negative (Negative); Leukocyte Esterase-Dipstick 500 /ul (Negative); Nitrite-Dipstick Positive (Negative); Occult Blood-Urine 150 /ul (Negative); Protein-Dipstick 30 mg/dl (Negative); Specific Gravity, Urine 1.015 (1.002-1.030); Urine Bilirubin Dipstick Negative (Negative); Urine Clarity Turbid (Clear); Urine Urobilinogen Normal (Normal)
== END | disposition home or self-care (01) ==
PROVIDERS: PCP Internal Medicine; Referring Provider Internal Medicine; Visit Provider Internal Medicine
DX: J44.1 Chronic obstructive pulmonary disease with (acute) exacerbation (principal); Z79.899 Other long term (current) drug therapy
CPT/HCPCS: 81002; 87086; 87088; 87186

== ENCOUNTER 2024-07-24 07:30 | Day surgery (SDC) | payer MEDICARE, SELFPAY ==
[2024-07-24 08:06] VITALS: BP 135/60; PULSE 49; RESP 18; TEMP 36.6; O2SAT 96; BMI 41.7
[2024-07-24] MEDS: 0.9% Saline Lock 3 mL Syringe 0.7 ML IV (08:13)
== END 2024-07-24 09:15 | disposition home or self-care (01) ==
LOC: SDC 07:30 → AC 07:32
PROVIDERS: PCP Internal Medicine; Referring Provider Anesthesiology Pain Medicine; Visit Provider Anesthesiology Pain Medicine
PROC: 3E0S3BZ Introduction of Anesthetic Agent into Epidural Space, Percutaneous Approach (ICD-10-PCS; CPT 62320; principal; 2024-07-24 09:05)
DX: Z00.00 Encounter for general adult medical examination without abnormal findings (principal)
CPT/HCPCS: A4216

== ENCOUNTER 2024-09-25 06:38 | Day surgery (SDC) | payer MEDICARE, SELFPAY ==
[2024-09-25 07:00] VITALS: BP 158/71; PULSE 62; RESP 20; TEMP 36.6; O2SAT 96; BMI 40.7
--- NOTE | 2024-09-25 07:10 | RAD_ITS ---
PROCEDURE: Cervical epidural block. DATE OF EXAMINATION: September 25, 2024. INDICATION: Female, 69 years old. Cervical pain. FLUOROSCOPY TIME (if supplied): (5 seconds) minutes/seconds. 2.12 mGy. One image was submitted. RAD/Spine 1 View Any Level IMPRESSION: Fluoroscopic imaging provided for cervical epidural block. Electronically Signed: Ever James MD at 12:44 EST ,
[2024-09-25 08:14] VITALS: BP 148/87; BP 154/76; BP 163/81; O2SAT 95; O2SAT 96; O2SAT 97
[2024-09-25] MEDS: MethylPREDNISolone Acetate 80 MG/ML Vial (08:20)
--- NOTE | 2024-09-25 08:29 | OP.PCM_ITS ---
Operative Report (Standard) Operative Information Surgery/Procedure Performed: Cervical epidural steroid injection interlaminar C7-T1 under fluoroscopic guidance Surgeon: Benton Salvador Date of Procedure: 09/25/24 Procedure Start Time: Procedure Stop Time: Pre-Operative Diagnosis: Cervical radiculopathy, cervical degenerative disc disease, cervical spinal stenosis Post-Operative Diagnosis: Cervical radiculopathy, cervical degenerative disc disease, cervical spinal stenosis Select all DRAINS/GRAFTS/IMPLANTS that apply: None Type of Anesthesia: Local Estimated Blood Loss: <1 Specimen collected: No Description of surgery: PREOPERATIVE DIAGNOSES: POSTOPERATIVE DIAGNOSES: PROCEDURE PERFORMED: Cervical epidural steroid injection, interlaminar at C7- T1. ANESTHESIA: Local. BLOOD LOSS: Minimal. COMPLICATIONS: None. DESCRIPTION OF PROCEDURE: History and physical of today was reviewed. Risks and benefits of the procedure were explained. The patient understood and agreed to proceed. Informed consent was obtained. IV inserted per routine protocol. The patient was taken to the operating room and placed in the prone position with a pillow positioned underneath the chest. The neck area was prepped and draped in a sterile fashion using iodine x3. Under fluoroscopy guidance on an AP view, the C7-T1 interlaminar space was identified. The skin and subcutaneous tissue was anesthetized with approximately 3 mL of 1% lidocaine using a 25-gauge regular needle. Under direct visualization on fluoroscopy, on AP view, using a 20-gauge 2-1/2-inch Tuohy needle, the needle was advanced via the skin. The tip of the needle was maneuvered and directed towards the interlaminar space at C7- T1. Loss of resistance technique was carried to air. Loss of resistance technique was encountered. Once encountered, after negative aspiration for blood and CSF, a total of 1 mL of contrast was injected to confirm correct placement of the needle as well as cephalocaudal spread of the contrast. Confirmation was obtained on AP as well as lateral view. After repeated negative aspiration and confirmation, a total of 3 mL of preservative-free normal saline and 80 mg of Depo-Medrol was injected easily. The needle was then removed intact. The patient experienced no sign or symptoms of intrathecal or intravascular injection. The patient experienced no paresthesia. The procedure was completed without any apparent difficulty or any complications. The patient appeared to tolerate it well. ASSESSMENT AND PLAN: Surgical Findings: see Non Acoustic Operator patient services assistant: No Complications Complications: No Admit VTE Documentation VTE Present on Admission: No
== END 2024-09-25 08:48 | disposition home or self-care (01) ==
LOC: SDC 06:40 → AC 06:41
PROVIDERS: PCP Internal Medicine; Referring Provider Anesthesiology Pain Medicine; Visit Provider Anesthesiology Pain Medicine
PROC: 3E0S3BZ Introduction of Anesthetic Agent into Epidural Space, Percutaneous Approach (ICD-10-PCS; CPT 62320; principal; 2024-09-25 08:05)
DX: M50.123 Cervical disc disorder at C6-C7 level with radiculopathy (principal); M48.02 Spinal stenosis, cervical region; Z79.51 Long term (current) use of inhaled steroids; Z79.82 Long term (current) use of aspirin; Z79.899 Other long term (current) drug therapy
CPT/HCPCS: 62321; 01992; 64490; 72020; A4216

== ENCOUNTER 2025-01-22 08:09 | Day surgery (SDC) | payer MEDICARE, SELFPAY ==
[2025-01-22] VITALS (8 sets, daily range): BP systolic 96–154; BP diastolic 46–88; PULSE 52–64; RESP 14–18; TEMP 36.1–36.4; O2SAT 94–96; BMI 41.6
--- NOTE | 2025-01-22 09:38 | PRE.ANES_ITS ---
ASA Classification* ASA Classification ASA Classification: 3 Assessment & Plan Anesthesia* Anesthesia Assessment Anesthesia Assessment: Discussed sedation and/or anesthesia options, risks, benefits, and alternatives with patient/parents/legal guardian/POA. Questions invited. The patient/parents/legal guardian/POA seems to understand and agrees to proceed with anesthesia plan. Reviewed the physical assessment, medical history, allergy history and patient home medications list prior to surgery/procedure/anesthetic and documented any changes. Performed airway and anesthesia risk assessments. Anesthesia Type Anesthesia Type: MAC History Source History Obtained from:: Patient and Chart Anesthesia Focused Assessment* Temperature: 97.0 F Pulse Rate: 56 Blood Pressure: 154/71 Respiratory Rate: 18 Pulse Ox: 96 Oxygen Delivery Method: Room Air Airway Assessment Mouth opens: >3 cm Mallampati Score: IV Teeth Condition: Missing (Patient has couple missing teeth. Rest of the teeth are tight.) Neck Range of motion (ROM): Limited ROM (slight decrease in extension) Focused Labs Anesthesia Preop lab: CBC WBC 8.0 K/mm3 (4.4-11.0) 06/18/24 05:15 06/18/24 RBC 4.42 M/mm3 (4.2-5.4) 06/18/24 05:15 06/18/24 Hgb 14.6 g/dL (12.0-15.0) 06/18/24 05:15 06/18/24 Hct 44.3 % (37-47) 06/18/24 05:15 06/18/24 Plt Count 202 K/mm3 (150-450) 06/18/24 05:15 06/18/24 CHEMISTRY Potassium 3.6 mmol/L (3.5-5.1) 06/18/24 05:15 06/18/24 Sodium 142 mmol/L (136-145) 06/18/24 05:15 06/18/24 Magnesium 2.1 mg/dL (1.6-2.6) 01/09/23 14:50 01/09/23 BUN 25 mg/dL (7-18) H 06/18/24 05:15 06/18/24 Creatinine 0.93 mg/dL (0.55-1.02) 06/18/24 05:15 06/18/24 Glucose 89 mg/dL (74-106) 06/18/24 05:15 06/18/24 POC Glucose 83 mg/dL (74-106) 06/15/24 15:01 06/15/24 TSH 2.44 uIU/mL (0.358-3.74) 06/15/24 17:23 COAG Pre-Assessment Diagnosis/Proposed Procedure Planned Operative Procedure(s): Right cervical medial branch block at C4 C5-C6-C7 under fluoroscopy. 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 When Was Last Pacemaker Check QUESTION #4 FULL TEXT: You/Your Family Experience fever (hyperthermia) with Anesthesia Last Oral Intake Last Oral intake: Last Oral Intake NPO since 21:00 01/22/25 08:56 Meds taken in AM with sips of No 01/22/25 08:56 water? 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 Female HX of Motion Sickness HX of N/V After Surgery Non-Smoker Duration of Surgery greater than 60 minutes Number of Risk Factors PONV Score Height & Weight Height & Weight: Anesthesia: Height & Weight Height 5 ft 2 in 01/22/25 08:56 Weight: 103.3 kg 01/22/25 08:56 Body Mass Index (BMI) 41.6 01/22/25 08:56 Respiratory Assessment Respiratory Assessment - meat and poultry inspector: Respiratory Tract Infection Hx - meat and poultry inspector Hx Respiratory Tract Infection No 07/19/24 15:37 STOP Sleep Apnea STOP Sleep Apnea - meat and poultry inspector: STOP Sleep Apnea - meat and poultry inspector Hx Hypertension Yes: CONTROLLED WITH MEDS 07/19/24 15:37 Hx Sleep Apnea Yes 07/19/24 15:37 CPAP No 07/19/24 15:37 BIPAP Yes 07/19/24 15:37 Do you snore loudly (louder than talking or can be heard Do you often feel tired/ fatigued/ sleepy during daytime? Has anyone observed you stop breathing during sleep? STOP Results QUESTION #5 FULL TEXT : Do you snore loudly (louder than talking or can be heard through closed doors)? 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 Specify any problems Hx of Preganancy in last 3 Months Nurse Filling Out Transfusion & Questions: Date: Time: Patient unable to answer at this time (ie. confused, unrespo /Reproduction History /Reproductive History - meat and poultry inspector: /Reproductive Hx- meat and poultry inspector Hx Now Gestational Age (in weeks): EDC: Hx Hx Para Hx Section SAB No 07/19/24 15:37 PFSH Medical History Pain Loss of hearing Wears glasses Post-menopausal Depression Anxiety Alcohol use Arthritis Bladder disease Low iron DVT (deep venous thrombosis) Restless legs Back pain Difficulty swallowing History of IBS Former smoker BiPAP (biphasic positive airway pressure) dependence COPD (chronic obstructive pulmonary disease) Shortness of breath on exertion Leg cramps History of pain when walking History of echocardiogram History of stress test Cardiology follow-up encounter Hypothyroidism Pulmonary HTN CAD (coronary artery disease) Strain of right groin Acute right hip pain History of heart attack HTN (hypertension) Home Medications ?Medication ?Instructions ?Recorded ?Last Taken ?Type levothyroxine 175 mcg tablet 175 mcg PO DAILY Thyroid 05/31/15 01/20/25 History sertraline 100 mg tablet 150 mg PO QHS Depression 01/20/25 History albuterol sulfate 90 mcg/actuation 2 puff inhalation Q 4H PRN PRN 01/09/23 03/13/24 History aerosol inhaler BREATHING aspirin 81 mg chewable tablet 81 mg PO DAILY HEART HEA LTH 01/09/23 01/08/25 History atorvastatin 40 mg tablet 40 mg PO QHS CHOLESTEROL 02/2801/20/25 History budesonide-formoterol HFA 160 2 puff inhalation BID SO B 01/09/23 01/20/25 History mcg-4.5 mcg/actuation aerosol inhaler (Symbicort) clopidogrel 75 mg tablet 75 mg PO DAILY anti platelet 01/09/23 01/08/25 History lisinopril 20 mg tablet 30 mg PO DAILY HTN 01/09/23 01/20/25 History coenzyme Q10 10 mg capsule 10 mg PO DAILY Supplement 0 03/13/24 01/20/25 History pyridoxine (vitamin B6) 100 mg 100 mg PO DAILY Supplem ent 03/13/24 01/20/25 History tablet (Vitamin B-6) gabapentin 600 mg tablet 300 mg (1/2 x 600 mg) PO QHS 06/19/24 01/20/25 Rx Neuropathy 30 days #0 tabs ropinirole 2 mg tablet,extended 0.5 mg (1/4 x 2 mg) PO QHS 06/19/24 01/20/25 Rx release 24 hr Restless legs 30 days #0 tab s oxycodone-acetaminophen 5 mg-325 1 tab PO TID PRN PRN pain 07/19/24 01/21/25 History mg tablet solifenacin 10 mg tablet 10 mg PO DAILY 07/19/2401/06 History Allergy/AdvReac Type Severity Reaction Status Date / Time metaxalone (From Skelaxin) Allergy Intermediate Itching Verified 01/22/25 08:54 adhesive Allergy Hives Verified 01/22/25 08:54 Surgical History Hx of right cataract extraction Hx of left cataract extraction Hx of total knee arthroplasty Hx of total shoulder replacement Hx of appendectomy Hx laparoscopic cholecystectomy Hx of rotator cuff surgery Hx of elbow surgery History of back surgery Stented coronary artery Social History Smoking Status: Former smoker Review of Systems (Anesthesia) ROS Narrative System reviewed and no additional complaints, except as documented.
--- NOTE | 2025-01-22 09:50 | RAD_ITS ---
PROCEDURE: Fluoroscopy use 01/22/2025 REASON FOR EXAM: BLOCK, MEDIAL BRANCH, CERVICAL RT TECHNIQUE: 4 intraoperative spot images were obtained during cervical nerve block. 16.3 seconds of fluoroscopic time utilized. COMPARISON: None. FINDINGS: 4 intraoperative spot images were obtained during cervical nerve block. A needle projects over the lateral margin of the cervical spine, presumably on the right, based on provided information. No laterality marker is present on the provided images. RAD/Spine 1 View Any Level IMPRESSION: Documentation of fluoroscopy use during cervical nerve block. Please see the o perative note for details. Reading Location: [facility]
[2025-01-22] MEDS: MethylPREDNISolone Acetate 80 MG/ML Vial (10:01)
[2025-01-22] MEDS: Bupivacaine 0.25% 30 ML Vial (10:02)
--- NOTE | 2025-01-22 10:14 | PCM.POST.ANE ---
Anesthesia: Postop Eval I Current Vital Signs Temperature: 97.5 F Pulse Rate: 63 Blood Pressure: 96/68 Respiratory Rate: 16 Pulse Ox: 94 Oxygen Delivery Method: Room Air Assessment Airway patent: Yes Spontaneous unlabored respirations: Yes Mental status: Awake nausea: No Vomiting: No Anesthesia Complication: No Fluid Hydration Crystalloid volume administer (ml): 10 Total IV fluid infused: 10 Progress Note Anesthesia document: Postop Eval 1 completed: Yes
--- NOTE | 2025-01-22 10:18 | PCM.OPRPT ---
Operative Report (Standard) Operative Information Date of Procedure: 01/22/25 Pre-Operative Diagnosis: Cervical spondylosis, cervical degenerative disc disease, cervical facet arthropathy Post-Operative Diagnosis: Cervical spondylosis, cervical degenerative disc disease, cervical facet arthropathy Surgery/Procedure Performed: Right-sided cervical medial branch block at C4-5, C5-6, C6-7 university partnership rep: No Type of Anesthesia: Local MAC RN Documented Start/Stop Times: Operation Date: 01/22/25 09:40 Case Time Into Pre-Op 01/22/25 08:43 Out of Pre-Op 01/22/25 09:47 Anesthesia Start 01/22/25 09:52 Into Room 01/22/25 09:52 Procedure Start 01/22/25 10:00 Procedure End 01/22/25 10:06 Anesthesia End 01/22/25 10:10 Out of Room 01/22/25 10:10 Into Recovery 01/22/25 10:11 Procedure Start Time: 10:19 Procedure Stop Time: 10:19 Select all DRAINS/GRAFTS/IMPLANTS that apply: None Estimated Blood Loss: 1 Specimen collected: No Description of surgery: ANESTHESIA: MAC. BLOOD LOSS: Minimal. COMPLICATIONS: None. DESCRIPTION OF PROCEDURE: History and physical of today was reviewed. Risks and benefits of the procedure were explained. The patient understood and agreed to proceed. Informed consent was obtained. IV inserted per routine protocol. The patient was taken to the operating room and placed in the prone position with a pillow positioned underneath the chest. The neck area was prepped and draped in a sterile fashion using iodine x3. Under fluoroscopy guidance on an AP view, the C4 through C7 vertebral bodies were visualized at approximately 10-degree angle, starting on the right C4, ending on the right C7, passing through the C5 and C6. Using a 25-gauge 3-1/2-inch spinal needle, the needle was advanced via the skin. The tip of the needle was maneuvered and directed towards the epiphyseal junction of each corresponding vertebra. Once the tip of the needle was at the vicinity of the medial branch, the needle was pulled approximately 2 mm off the bone. After negative aspiration of blood or CSF and confirmation on AP, oblique as well as lateral view, a total of 4 mL of preservative-free 0.25% Marcaine with 80 mg of Depo-Medrol was injected in divided doses between those four levels. The needles were then removed intact. The patient experienced no sign or symptoms of intrathecal or intravascular injection. The patient experienced no paresthesia. The procedure was completed without any apparent difficulty or any complications. The patient appeared to tolerate it well. ASSESSMENT AND PLAN: This is a 69-year-old female with cervical spondylosis, cervical degenerative disc disease, cervical facet arthropathy status post right sided cervical medial branch block at C4-C7, patient will continue her current medications, patient will follow-up in approximately 2 weeks for reevaluation. Surgical Findings: 0 Complications Complications: No Admit VTE Documentation VTE Present on Admission: No VTE Mechan Device Prophylaxis: None VTE Pharm Prophylaxis ordered?: No
--- NOTE | 2025-01-22 10:26 | POSTOPAN2_ITS ---
Anesthesia Postop Eval I Sum Postop Eval Completion status Anesthesia document: Postop Eval 1 completed: Yes Anesthesia Postop Eval I Summary Anesthesia Postop Eval I Summary: Anesthesia Postop Eval I: Assessment Summary Airway patent Yes 01/22/25 10:14 [email or web address] Spontaneous unlabored Yes 01/22/25 10:14 [email or web address] respirations Mental status Awake 01/22/25 10:14 [email or web address] nausea No 01/22/25 10:14 [email or web address] Vomiting No 01/22/25 10:14 [email or web address] Anesthesia Postop Eval I: Fluid Summary Crystalloid volume administer 10 01/22/25 10:14 [email or web address] (ml) Colloids volume administered ( ml) Blood Product volume administered (ml) Total IV fluid infused 10 01/22/25 10:14 [email or web address] Anesthesia Postop Eval I: Summary Notes Anesthesia Complication No 01/22/25 10:14 [email or web address] Anesthesia Complication Comment: Post-operative progress note Anesthesia: Postop Eval II Evaluation Mental status: Awake Pain Level: 2 nausea: No Vomiting: No
--- NOTE | 2025-01-22 10:26 | PCM.POSTANE2 ---
Anesthesia Postop Eval I Sum Postop Eval Completion status Anesthesia document: Postop Eval 1 completed: Yes Anesthesia Postop Eval I Summary Anesthesia Postop Eval I Summary: Anesthesia Postop Eval I: Assessment Summary Airway patent Yes 01/22/25 10:14 [email or web address] Spontaneous unlabored Yes 01/22/25 10:14 [email or web address] respirations Mental status Awake 01/22/25 10:14 [email or web address] nausea No 01/22/25 10:14 [email or web address] Vomiting No 01/22/25 10:14 [email or web address] Anesthesia Postop Eval I: Fluid Summary Crystalloid volume administer 10 01/22/25 10:14 [email or web address] (ml) Colloids volume administered ( ml) Blood Product volume administered (ml) Total IV fluid infused 10 01/22/25 10:14 [email or web address] Anesthesia Postop Eval I: Summary Notes Anesthesia Complication No 01/22/25 10:14 [email or web address] Anesthesia Complication Comment: Post-operative progress note Anesthesia: Postop Eval II Evaluation Mental status: Awake Pain Level: 2 nausea: No Vomiting: No
[2025-01-22] MEDS: Acetaminophen 500 MG Tablet 1000 MG PO (10:47)
== END 2025-01-22 10:52 | disposition home or self-care (01) ==
LOC: SDC 08:12 → AC 08:24
PROVIDERS: PCP Internal Medicine; Referring Provider Anesthesiology Pain Medicine; Visit Provider Anesthesiology Pain Medicine
PROC: 3E0S3BZ Introduction of Anesthetic Agent into Epidural Space, Percutaneous Approach (ICD-10-PCS; CPT 62322; principal; 2025-01-22 09:35)
DX: M47.812 Spondylosis without myelopathy or radiculopathy, cervical region (principal); M50.30 Other cervical disc degeneration, unspecified cervical region; M46.92 Unspecified inflammatory spondylopathy, cervical region; I10 Essential (primary) hypertension; Z79.51 Long term (current) use of inhaled steroids; Z79.82 Long term (current) use of aspirin; Z79.899 Other long term (current) drug therapy; Z87.891 Personal history of nicotine dependence
CPT/HCPCS: 64491; 01992; 64490; 72020

== ENCOUNTER 2025-03-26 09:34 | Day surgery (SDC) | payer MEDICARE, SELFPAY ==
[2025-03-26] VITALS (7 sets, daily range): BP systolic 104–147; BP diastolic 55–99; PULSE 51–61; RESP 16–18; TEMP 36.1–36.8; O2SAT 94–97; BMI 40.7
--- NOTE | 2025-03-26 09:37 | PCM.PRE.AN2 ---
ASA Classification* ASA Classification ASA Classification: 3 Assessment & Plan Anesthesia* Anesthesia Assessment Anesthesia Assessment: Discussed sedation and/or anesthesia options, risks, benefits, and alternatives with patient/parents/legal guardian/POA. Questions invited. The patient/parents/legal guardian/POA seems to understand and agrees to proceed with anesthesia plan. Reviewed the physical assessment, medical history, allergy history and patient home medications list prior to surgery/procedure/anesthetic and documented any changes. Performed airway and anesthesia risk assessments. Anesthesia Type Anesthesia Type: MAC Anesthesia Focused Assessment* Airway Assessment Mouth opens: >3 cm Mallampati Score: II Focused Labs Anesthesia Preop lab: CBC WBC 8.0 K/mm3 (4.4-11.0) 06/18/24 05:15 06/18/24 RBC 4.42 M/mm3 (4.2-5.4) 06/18/24 05:15 06/18/24 Hgb 14.6 g/dL (12.0-15.0) 06/18/24 05:15 06/18/24 Hct 44.3 % (37-47) 06/18/24 05:15 06/18/24 Plt Count 202 K/mm3 (150-450) 06/18/24 05:15 06/18/24 CHEMISTRY Potassium 3.6 mmol/L (3.5-5.1) 06/18/24 05:15 06/18/24 Sodium 142 mmol/L (136-145) 06/18/24 05:15 06/18/24 Magnesium 2.1 mg/dL (1.6-2.6) 01/09/23 14:50 01/09/23 BUN 25 mg/dL (7-18) H 06/18/24 05:15 06/18/24 Creatinine 0.93 mg/dL (0.55-1.02) 06/18/24 05:15 06/18/24 Glucose 89 mg/dL (74-106) 06/18/24 05:15 06/18/24 POC Glucose 83 mg/dL (74-106) 06/15/24 15:01 06/15/24 TSH 2.44 uIU/mL (0.358-3.74) 06/15/24 17:23 06/15/24 COAG Pre-Assessment Diagnosis/Proposed Procedure Planned Operative Procedure(s): Caudal Block Anesthesia History 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 When Was Last Pacemaker Check QUESTION #4 FULL TEXT: You/Your Family Experience fever (hyperthermia) with Anesthesia Last Oral Intake Last Oral intake: Last Oral Intake NPO since Meds taken in AM with sips of water? Meds patient instructed to take am of surgery PONV PONV - funeral director: PONV - funeral director Female HX of Motion Sickness HX of N/V After Surgery Non-Smoker Duration of Surgery greater than 60 minutes Number of Risk Factors PONV Score Height & Weight Height & Weight: Anesthesia: Height & Weight Height 5 ft 2 in 01/22/25 08:56 Respiratory Assessment Respiratory Assessment - funeral director: Respiratory Tract Infection Hx - funeral director Hx Respiratory Tract Infection No 07/19/24 15:37 STOP Sleep Apnea STOP Sleep Apnea - funeral director: STOP Sleep Apnea - funeral director Hx Hypertension Yes: CONTROLLED WITH MEDS 07/19/24 15:37 Hx Sleep Apnea Yes 07/19/24 15:37 CPAP No 07/19/24 15:37 BIPAP Yes 07/19/24 15:37 Do you snore loudly (louder than talking or can be heard Do you often feel tired/ fatigued/ sleepy during daytime? Has anyone observed you stop breathing during sleep? STOP Results QUESTION #5 FULL TEXT : Do you snore loudly (louder than talking or can be heard through closed doors)? 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 Specify any problems Hx of Preganancy in last 3 Months Nurse Filling Out Transfusion & Questions: Date: Time: Patient unable to answer at this time (ie. confused, unrespo /Reproduction History /Reproductive History - funeral director: /Reproductive Hx- funeral director Hx Now Gestational Age (in weeks): EDC: Hx Hx Para Hx Section SAB No 07/19/24 15:37 PFSH Medical History Pain Loss of hearing Wears glasses Post-menopausal Depression Anxiety Alcohol use Arthritis Bladder disease Low iron DVT (deep venous thrombosis) Restless legs Back pain Difficulty swallowing History of IBS Former smoker BiPAP (biphasic positive airway pressure) dependence COPD (chronic obstructive pulmonary disease) Shortness of breath on exertion Leg cramps History of pain when walking History of echocardiogram History of stress test Cardiology follow-up encounter Hypothyroidism Pulmonary HTN CAD (coronary artery disease) Strain of right groin Acute right hip pain History of heart attack HTN (hypertension) Home Medications ?Medication ?Instructions ?Recorded ?Last Taken ?Type levothyroxine 175 mcg tablet 175 mcg PO DAILY Thyroid 05/31/15 01/20/25 History sertraline 100 mg tablet 150 mg PO QHS Depression 05/31/15 01/20/25 History albuterol sulfate 90 mcg/actuation 2 puff inhalation Q4H PRN PRN 01/09/23 03/13/24 History aerosol inhaler BREATHING aspirin 81 mg chewable tablet 81 mg PO DAILY HEART HEALTH 01/09/23 01/08/25 History atorvastatin 40 mg tablet 40 mg PO QHS CHOLESTEROL 01/09/23 01/20/25 History budesonide-formoterol HFA 160 2 puff inhalation BID SOB 01/09/23 01/20/25 History mcg-4.5 mcg/actuation aerosol inhaler (Symbicort) clopidogrel 75 mg tablet 75 mg PO DAILY anti platelet 01/09/23 01/08/25 History lisinopril 20 mg tablet 30 mg PO DAILY HTN 01/09/23 01/20/25 History coenzyme Q10 10 mg capsule 10 mg PO DAILY Supplement 03/13/24 01/20/25 History pyridoxine (vitamin B6) 100 mg 100 mg PO DAILY Supplement 03/13/24 01/20/25 History tablet (Vitamin B-6) gabapentin 600 mg tablet 300 mg (1/2 x 600 mg) PO QHS 06/19/24 01/20/25 Rx Neuropathy 30 days #0 tabs ropinirole 2 mg tablet,extended 0.5 mg (1/4 x 2 mg) PO QHS 06/19/24 01/20/25 Rx release 24 hr Restless legs 30 days #0 tabs oxycodone-acetaminophen 5 mg-325 1 tab PO TID PRN PRN pain 07/19/24 01/21/25 History mg tablet solifenacin 10 mg tablet 10 mg PO DAILY 07/19/24 01/20/25 History Allergy/AdvReac Type Severity Reaction Status Date / Time metaxalone (From Skelaxin) Allergy Intermediate Itching Verified 01/22/25 08:54 adhesive Allergy Hives Verified 01/22/25 08:54 Surgical History Hx of right cataract extraction Hx of left cataract extraction Hx of total knee arthroplasty Hx of total shoulder replacement Hx of appendectomy Hx laparoscopic cholecystectomy Hx of rotator cuff surgery Hx of elbow surgery History of back surgery Stented coronary artery Social History Smoking Status: Former smoker Review of Systems (Anesthesia) ROS Narrative System reviewed and no additional complaints, except as documented.
--- NOTE | 2025-03-26 09:55 | RAD_ITS ---
PROCEDURE: FLUOR GUIDANCE FOR SPINE INJ 03/26/2025 REASON FOR EXAM: BLOCK, CAUDAL TECHNIQUE: Intraoperative imaging provided for caudal block. 5 seconds of fluoroscopy. 3.28 mGy. 2 images were submitted. COMPARISON: None FINDINGS: Intraoperative imaging provided for caudal block. RAD/Fluor Guidance for Spine Inj IMPRESSION: Intraoperative imaging provided for caudal block. Reading Location: [facility]
[2025-03-26] MEDS: Lactated Ringers 1,000 ML 15 ML IV (10:09)
[2025-03-26] MEDS: Bupivacaine 0.25% 30 ML Vial (10:35)
[2025-03-26] MEDS: 0.9% Normal Saline (Pres. free 10 ML Vial (10:35)
[2025-03-26] MEDS: MethylPREDNISolone Acetate 80 MG/ML Vial (10:35)
[2025-03-26] MEDS: Lidocaine 1% (5 ml sdv) 5 ML Vial (10:36)
--- NOTE | 2025-03-26 10:58 | OP.PCM_ITS ---
Operative Report (Standard) Operative Information Date of Procedure: 03/26/25 Pre-Operative Diagnosis: Lumbosacral radiculopathy, postlaminectomy syndrome of the lumbar spine, lumbosacral spinal stenosis Post-Operative Diagnosis: Lumbosacral radiculopathy, postlaminectomy syndrome of the lumbar spine, lumbosacral spinal stenosis Surgery/Procedure Performed: Diagnostic/therapeutic caudal epidural steroid injection under fluoroscopic guidance capacitor repairer: No Type of Anesthesia: Local MAC RN Documented Start/Stop Times: Operation Date: 03/26/25 10:55 Case Time Into Pre-Op 03/26/25 09:48 Out of Pre-Op 03/26/25 10:18 Anesthesia Start 03/26/25 10:27 Into Room 03/26/25 10:27 Procedure Start 03/26/25 10:35 Procedure End 03/26/25 10:37 Anesthesia End 03/26/25 10:40 Out of Room 03/26/25 10:40 Into Recovery 03/26/25 10:42 Procedure Start Time: 10:59 Procedure Stop Time: 10:59 Select all DRAINS/GRAFTS/IMPLANTS that apply: None Estimated Blood Loss: 0 Specimen collected: No Description of surgery: ANESTHESIA: MAC. BLOOD LOSS: Minimal. COMPLICATIONS: None. DESCRIPTION OF PROCEDURE: History and physical of today was reviewed. Risks and benefits of the procedure were explained. The patient understood and agreed to proceed. Informed consent was obtained. IV inserted per routine protocol. The patient was taken to the operating room and placed in the prone position with a pillow positioned underneath the abdomen. The lower back and tailbone area was prepped and draped in a sterile fashion using iodine x3. Under fluoroscopy guidance on a lateral view, the caudal space was identified. The skin and subcutaneous tissue was anesthetized with approximately 3 mL of 1% lidocaine using a 25-gauge regular needle. Under direct visualization with fluoroscopy, using a 22-gauge 3-1/2-inch spinal needle, the needle was advanced via the skin through the sacral hiatus. The tip of the needle was passed through the sacrococcygeal ligament and advanced to approximately S4 area. After negative aspiration of blood or CSF, a total of 3 mL of contrast was injected to confirm correct placement of the needle as well as cephalad spread. The spread was followed to approximately L5 area. After confirmation on AP as well as lateral view and repeated negative aspiration, a total of 15 mL of preservative-free 0.125% Marcaine with 80 mg of Depo-Medrol was injected easily. The needle was then removed intact. The patient experienced no sign or symptoms of intrathecal or intravascular injection. The patient experienced no paresthesia. The procedure was completed without any apparent difficulty or any complications. The patient appeared to tolerate it well. ASSESSMENT AND PLAN: This is a 69-year-old female with lumbosacral radiculopathy, postlaminectomy syndrome of the lumbar spine, lumbosacral spinal stenosis, status post diagnostic/therapeutic caudal epidural steroid injection under fluoroscopic guidance, patient will continue her current medications, patient will follow-up in approximately 2 weeks for reevaluation. Surgical Findings: 0 Complications Complications: No Admit VTE Documentation VTE Present on Admission: No VTE Mechan Device Prophylaxis: None VTE Pharm Prophylaxis ordered?: No
--- NOTE | 2025-03-26 11:46 | PCM.POST.ANE ---
Anesthesia: Postop Eval I Current Vital Signs Temperature: 98.2 F Pulse Rate: 51 Blood Pressure: 121/55 Respiratory Rate: 18 Pulse Ox: 96 Assessment Airway patent: Yes Spontaneous unlabored respirations: Yes nausea: No Vomiting: No Anesthesia Complication: No Fluid Hydration Crystalloid volume administer (ml): 20 Total IV fluid infused: 20 Progress Note Anesthesia document: Postop Eval 1 completed: Yes
--- NOTE | 2025-03-26 11:51 | PCM.POSTANE2 ---
Anesthesia Postop Eval I Sum Postop Eval Completion status Anesthesia document: Postop Eval 1 completed: Yes Anesthesia Postop Eval I Summary Anesthesia Postop Eval I Summary: Anesthesia Postop Eval I: Assessment Summary Airway patent Yes 03/26/25 11:47 Spontaneous unlabored Yes 03/26/25 11:47 respirations Mental status nausea No 03/26/25 11:47 Vomiting No 03/26/25 11:47 Anesthesia Postop Eval I: Fluid Summary Crystalloid volume administer 20 03/26/25 11:47 (ml) Colloids volume administered ( ml) Blood Product volume administered (ml) Total IV fluid infused 20 03/26/25 11:47 Anesthesia Postop Eval I: Summary Notes Anesthesia Complication No 03/26/25 11:47 Anesthesia Complication Comment: Post-operative progress note Anesthesia: Postop Eval II Evaluation Mental status: Awake Pain Level: 0 nausea: No Vomiting: No
== END 2025-03-26 11:21 | disposition home or self-care (01) ==
LOC: SDC 09:37 → AC 09:50
PROVIDERS: PCP Internal Medicine; Referring Provider Anesthesiology Pain Medicine; Visit Provider Anesthesiology Pain Medicine
PROC: 3E0S3BZ Introduction of Anesthetic Agent into Epidural Space, Percutaneous Approach (ICD-10-PCS; CPT 62282; principal; 2025-03-26 10:50)
DX: M54.17 Radiculopathy, lumbosacral region (principal); M48.07 Spinal stenosis, lumbosacral region; M96.1 Postlaminectomy syndrome, not elsewhere classified; Z79.82 Long term (current) use of aspirin; Z79.899 Other long term (current) drug therapy
CPT/HCPCS: 62323; 01992; 64490; 77003

== ENCOUNTER 2025-07-23 09:44 | Day surgery (SDC) | payer MEDICARE, SELFPAY ==
[2025-07-23] VITALS (7 sets, daily range): BP systolic 96–129; BP diastolic 46–60; PULSE 50–52; RESP 14–16; TEMP 32.7–36.9; O2SAT 94–97; BMI 40.8
--- NOTE | 2025-07-23 09:55 | PCM.PRE.AN2 ---
ASA Classification* ASA Classification ASA Classification: 3 Assessment & Plan Anesthesia* Anesthesia Assessment Anesthesia Assessment: Discussed sedation and/or anesthesia options, risks, benefits, and alternatives with patient/parents/legal guardian/POA. Questions invited. The patient/parents/legal guardian/POA seems to understand and agrees to proceed with anesthesia plan. Reviewed the physical assessment, medical history, allergy history and patient home medications list prior to surgery/procedure/anesthetic and documented any changes. Performed airway and anesthesia risk assessments. Anesthesia Type Anesthesia Type: MAC Anesthesia Focused Assessment* Airway Assessment Mouth opens: >3 cm Mallampati Score: II Labs Anesthesia Preop lab: CBC WBC 8.0 K/mm3 (4.4-11.0) 06/18/24 05:15 06/18/24 RBC 4.42 M/mm3 (4.2-5.4) 06/18/24 05:15 06/18/24 Hgb 14.6 g/dL (12.0-15.0) 06/18/24 05:15 06/18/24 Hct 44.3 % (37-47) 06/18/24 05:15 06/18/24 Plt Count 202 K/mm3 (150-450) 06/18/24 05:15 06/18/24 CHEMISTRY Potassium 3.6 mmol/L (3.5-5.1) 06/18/24 05:15 06/18/24 Sodium 142 mmol/L (136-145) 06/18/24 05:15 06/18/24 Magnesium 2.1 mg/dL (1.6-2.6) 01/09/23 14:50 01/09/23 BUN 25 mg/dL (7-18) H 06/18/24 05:15 06/18/24 Creatinine 0.93 mg/dL (0.55-1.02) 06/18/24 05:15 06/18/24 Glucose 89 mg/dL (74-106) 06/18/24 05:15 06/18/24 POC Glucose 83 mg/dL (74-106) 06/15/24 15:01 06/15/24 TSH 2.44 uIU/mL (0.358-3.74) 06/15/24 17:23 06/15/24 COAG Pre-Assessment Diagnosis/Proposed Procedure Planned Operative Procedure(s): (R) RIGHT SUPRACAPSULAR STEROID NERVE BLOCK UNDER FLUOROSCOPY Anesthesia History 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 When Was Last Pacemaker Check QUESTION #4 FULL TEXT: You/Your Family Experience fever (hyperthermia) with Anesthesia Last Oral Intake Last Oral intake: Last Oral Intake NPO since Meds taken in AM with sips of water? Meds patient instructed to take am of surgery PONV PONV - optical glass silverer: PONV - optical glass silverer Female Yes 07/16/25 15:00 HX of Motion Sickness No 07/16/25 15:00 HX of N/V After Surgery No 07/16/25 15:00 Non-Smoker Yes 07/16/25 15:00 Duration of Surgery greater No 07/16/25 15:00 than 60 minutes Number of Risk Factors 2 07/16/25 15:00 PONV Score Moderate Risk 07/16/25 15:00 Height & Weight Height & Weight: Anesthesia: Height & Weight Height 5 ft 2 in 03/26/25 10:00 Respiratory Assessment Respiratory Assessment - optical glass silverer: Respiratory Tract Infection Hx - optical glass silverer Hx Respiratory Tract Infection No 07/16/25 15:00 STOP Sleep Apnea STOP Sleep Apnea - optical glass silverer: STOP Sleep Apnea - optical glass silverer Hx Hypertension Yes 07/16/25 15:00 Hx Sleep Apnea Yes 07/16/25 15:00 CPAP No 07/16/25 15:00 BIPAP No 07/16/25 15:00 Do you snore loudly (louder than talking or can be heard Do you often feel tired/ fatigued/ sleepy during daytime? Has anyone observed you stop breathing during sleep? STOP Results Positive 07/16/25 15:00 QUESTION #5 FULL TEXT : Do you snore loudly (louder than talking or can be heard through closed doors)? 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 Specify any problems Hx of Preganancy in last 3 No 07/16/25 15:00 Months Nurse Filling Out Transfusion JZOLLINGE 07/16/25 15:00 & Questions: Date: 07/16/25 07/16/25 15:00 Time: 15:02 07/16/25 15:00 Patient unable to answer at this time (ie. confused, unrespo /Reproduction History /Reproductive History - optical glass silverer: /Reproductive Hx- optical glass silverer Hx Now No 07/16/25 15:00 Gestational Age (in weeks): EDC: Hx Hx Para Hx Section SAB No 07/16/25 15:00 Active Medications Active Medications: Current Medications Generic Name Dose Route Start Last Admin Trade Name Freq PRN Reason Stop Dose Admin Lactated Ringer's 1,000 mls @ 15 mls/hr 07/23/25 10:00 IV .Q48H SUNG PFSH Medical History Non-smoker Pain Loss of hearing Wears glasses Post-menopausal Depression Anxiety Alcohol use Arthritis Bladder disease Low iron DVT (deep venous thrombosis) Restless legs Back pain Difficulty swallowing History of IBS Former smoker BiPAP (biphasic positive airway pressure) dependence COPD (chronic obstructive pulmonary disease) Shortness of breath on exertion Leg cramps History of pain when walking History of echocardiogram History of stress test Cardiology follow-up encounter Hypothyroidism Pulmonary HTN CAD (coronary artery disease) Strain of right groin Acute right hip pain History of heart attack HTN (hypertension) Home Medications ?Medication ?Instructions ?Recorded ?Last Taken ?Type levothyroxine 175 mcg tablet 175 mcg PO DAILY Thyroid 05/31/15 03/26/25 History sertraline 100 mg tablet 150 mg PO QHS Depression 05/31/15 01/20/25 History albuterol sulfate 90 mcg/actuation 2 puff inhalation Q4H PRN PRN 01/09/23 03/13/24 History aerosol inhaler BREATHING aspirin 81 mg chewable tablet 81 mg PO DAILY HEART HEALTH 01/09/23 03/16/25 History atorvastatin 40 mg tablet 40 mg PO QHS CHOLESTEROL 01/09/23 01/20/25 History budesonide-formoterol HFA 160 2 puff inhalation BID SOB 01/09/23 01/20/25 History mcg-4.5 mcg/actuation aerosol inhaler (Symbicort) clopidogrel 75 mg tablet 75 mg PO DAILY anti platelet 01/09/23 03/16/25 History lisinopril 20 mg tablet 30 mg PO DAILY HTN 01/09/23 03/26/25 History coenzyme Q10 10 mg capsule 10 mg PO DAILY Supplement 03/13/24 01/20/25 History pyridoxine (vitamin B6) 100 mg 100 mg PO DAILY Supplement 03/13/24 03/26/25 History tablet (Vitamin B-6) gabapentin 600 mg tablet 300 mg (1/2 x 600 mg) PO QHS 06/19/24 01/20/25 Rx Neuropathy 30 days #0 tabs ropinirole 2 mg tablet,extended 0.5 mg (1/4 x 2 mg) PO QHS 06/19/24 01/20/25 Rx release 24 hr Restless legs 30 days #0 tabs oxycodone-acetaminophen 5 mg-325 1 tab PO TID PRN PRN pain 07/19/24 01/21/25 History mg tablet solifenacin 10 mg tablet 10 mg PO DAILY 07/19/24 01/20/25 History Allergy/AdvReac Type Severity Reaction Status Date / Time metaxalone (From Skelaxin) Allergy Intermediate Itching Verified 07/16/25 14:55 adhesive Allergy Hives Verified 07/16/25 14:55 Surgical History Hx of right cataract extraction Hx of left cataract extraction Hx of total knee arthroplasty Hx of total shoulder replacement Hx of appendectomy Hx laparoscopic cholecystectomy Hx of rotator cuff surgery Hx of elbow surgery History of back surgery Stented coronary artery Social History Smoking Status: Former smoker Review of Systems (Anesthesia) ROS Narrative System reviewed and no additional complaints, except as documented.
[2025-07-23] MEDS: Lactated Ringers 1,000 ML 15 ML IV (10:15)
--- NOTE | 2025-07-23 10:50 | RAD_ITS ---
PROCEDURE: SHOULDER ONE VIEW 07/23/2025 REASON FOR EXAM: RIGHT SUPRACAPSULAR STERIOD NERVE BLOCK TECHNIQUE: Fluoro for procedure COMPARISON: None FINDINGS: 1 image, 5.6 seconds, 2.16 mGy RAD/Shoulder One View IMPRESSION: Fluoro was provided. Reading Location: [place]
[2025-07-23] MEDS: Lidocaine 1% (5 ml sdv) 5 ML Vial (10:55)
--- NOTE | 2025-07-23 11:04 | PCM.POST.ANE ---
Anesthesia: Postop Eval I Current Vital Signs Temperature: 97 F Pulse Rate: 52 Blood Pressure: 109/46 Respiratory Rate: 16 Pulse Ox: 96 Oxygen Delivery Method: Room Air Assessment Airway patent: Yes Spontaneous unlabored respirations: Yes Mental status: Awake and Calm nausea: No Vomiting: No Anesthesia Complication: No Fluid Hydration Crystalloid volume administer (ml): 200 Total IV fluid infused: 200 Progress Note Anesthesia document: Postop Eval 1 completed: Yes
--- NOTE | 2025-07-23 11:06 | PCM.OPRPT ---
Operative Report (Standard) Operative Information Date of Procedure: 07/23/25 Pre-Operative Diagnosis: Osteoarthritis of the right shoulder, chronic postoperative shoulder pain Post-Operative Diagnosis: Osteoarthritis of the right shoulder, chronic postoperative shoulder pain Surgery/Procedure Performed: Right sided suprascapular nerve steroid injection under fluoroscopic guidance automotive quality manager: No Type of Anesthesia: Local MAC RN Documented Start/Stop Times: Operation Date: 07/23/25 11:20 Case Time Into Pre-Op 07/23/25 09:52 Anesthesia Start 07/23/25 10:49 Into Room 07/23/25 10:49 Procedure Start 07/23/25 10:55 Procedure End 07/23/25 10:58 Anesthesia End 07/23/25 11:00 Out of Room 07/23/25 11:00 Into Recovery 07/23/25 11:02 Procedure Start Time: 11:06 Procedure Stop Time: 11:06 Select all DRAINS/GRAFTS/IMPLANTS that apply: None Estimated Blood Loss: 0 Specimen collected: No Description of surgery: ANESTHESIA: MAC. BLOOD LOSS: Minimal. COMPLICATIONS: None. DESCRIPTION OF PROCEDURE: History and physical of today was reviewed. Risks and benefits of the procedure were explained. The patient understood and agreed to proceed. Informed consent was obtained. IV inserted per routine protocol. The patient was taken to the operating room and placed in the prone position with a pillow positioned beneath the chest, the right shoulder and upper back area was prepped and draped in a sterile fashion using iodine x 3, under fluoroscopy guidance on oblique view, the right shoulder and scapula was visualized. The skin and subcutaneous tissue was anesthetized with approximately 5 mL of 1% lidocaine using a 25-gauge regular needle at Under direct visualization with fluoroscopy using a 22-gauge 3-1/2-inch spinal needle, the needle was advanced via the skin. The tip of the needle was maneuvered and directed towards the uppermost part of the scapular spine. The tip of the needle was then maneuvered under direct visualization on fluoroscopy on an AP, oblique, as well as lateral view. The advancement of the needle was then followed to the contralateral view, once the tip of the needle was at the vicinity of the suprascapular nerve, after negative aspiration of blood or air, a total of 10 mL of preservative-free 0.25% Marcaine with 40 mg of Depo-Medrol was injected easily. The needle was then removed intact. The patient experienced no sign or symptoms of intrathecal or intravascular injection. The patient experienced no paresthesia. The procedure was completed without any apparent difficulty or any complications. The patient appeared to tolerate it well. Assessment and plan: This is a 70-year-old female with osteoarthritis of the right shoulder, chronic postoperative shoulder pain, status post right sided suprascapular nerve steroid injection under fluoroscopic guidance, patient will continue her current medications, patient will follow-up in approximately 2 weeks for reevaluation. Surgical Findings: 0 Complications Complications: No Admit VTE Documentation VTE Present on Admission: No VTE Mechan Device Prophylaxis: None VTE Pharm Prophylaxis ordered?: No
--- NOTE | 2025-07-23 12:12 | POSTOPAN2_ITS ---
Anesthesia Postop Eval I Sum Postop Eval Completion status Anesthesia document: Postop Eval 1 completed: Yes Anesthesia Postop Eval I Summary Anesthesia Postop Eval I Summary: Anesthesia Postop Eval I: Assessment Summary Airway patent Yes 07/23/25 11:04 BLACK ASH BURNER OPERATOR.[email or web address] Spontaneous unlabored Yes 07/23/25 11:04 BLACK ASH BURNER OPERATORMASSIEL respirations Mental status Awake,Calm 07/23/25 11:04 BLACK ASH BURNER OPERATOR.USHA nausea No 07/23/25 11:04 BLACK ASH BURNER OPERATOR.USHA Vomiting No 07/23/25 11:04 BLACK ASH BURNER OPERATORMASSIEL Anesthesia Postop Eval I: Fluid Summary Crystalloid volume administer 200 07/23/25 11:04 BLACK ASH BURNER OPERATOR.USHA (ml) Colloids volume administered ( ml) Blood Product volume administered (ml) Total IV fluid infused 200 07/23/25 11:04 BLACK ASH BURNER OPERATORMASSIEL Anesthesia Postop Eval I: Summary Notes Anesthesia Complication No 07/23/25 11:04 CURRY Anesthesia Complication Comment: Post-operative progress note Anesthesia: Postop Eval II Evaluation Mental status: Awake Pain Level: 2 nausea: No Vomiting: No
--- NOTE | 2025-07-23 12:12 | PCM.POSTANE2 ---
Anesthesia Postop Eval I Sum Postop Eval Completion status Anesthesia document: Postop Eval 1 completed: Yes Anesthesia Postop Eval I Summary Anesthesia Postop Eval I Summary: Anesthesia Postop Eval I: Assessment Summary Airway patent Yes 07/23/25 11:04 DELICATE FABRICS PRESSER.[email or web address] Spontaneous unlabored Yes 07/23/25 11:04 DELICATE FABRICS PRESSERMASSIEL respirations Mental status Awake,Calm 07/23/25 11:04 DELICATE FABRICS PRESSER.USHA nausea No 07/23/25 11:04 DELICATE FABRICS PRESSER.USHA Vomiting No 07/23/25 11:04 DELICATE FABRICS PRESSERMASSIEL Anesthesia Postop Eval I: Fluid Summary Crystalloid volume administer 200 07/23/25 11:04 DELICATE FABRICS PRESSER.USHA (ml) Colloids volume administered ( ml) Blood Product volume administered (ml) Total IV fluid infused 200 07/23/25 11:04 DELICATE FABRICS PRESSERMASSIEL Anesthesia Postop Eval I: Summary Notes Anesthesia Complication No 07/23/25 11:04 CURRY Anesthesia Complication Comment: Post-operative progress note Anesthesia: Postop Eval II Evaluation Mental status: Awake Pain Level: 2 nausea: No Vomiting: No
== END 2025-07-23 11:42 | disposition home or self-care (01) ==
LOC: SDC 09:46 → AC 09:49
PROVIDERS: PCP Internal Medicine; Referring Provider Anesthesiology Pain Medicine; Visit Provider Anesthesiology Pain Medicine
PROC: 3E0U3GC Introduction of Other Therapeutic Substance into Joints, Percutaneous Approach (ICD-10-PCS; CPT 20610; principal; 2025-07-23 11:15)
DX: M19.011 Primary osteoarthritis, right shoulder (principal); J44.9 Chronic obstructive pulmonary disease, unspecified; G89.28 Other chronic postprocedural pain; I10 Essential (primary) hypertension; F41.9 Anxiety disorder, unspecified; F32.A Depression, unspecified; E03.9 Hypothyroidism, unspecified; I25.10 Atherosclerotic heart disease of native coronary artery without angina pectoris; I25.2 Old myocardial infarction; G25.81 Restless legs syndrome; Z79.02 Long term (current) use of antithrombotics/antiplatelets; Z79.82 Long term (current) use of aspirin; Z79.51 Long term (current) use of inhaled steroids; Z86.718 Personal history of other venous thrombosis and embolism; Z79.890 Hormone replacement therapy; Z79.899 Other long term (current) drug therapy; Z87.891 Personal history of nicotine dependence; Z95.5 Presence of coronary angioplasty implant and graft; Z90.49 Acquired absence of other specified parts of digestive tract
CPT/HCPCS: 64418; 01992; 64490; 73020

== ENCOUNTER 2025-08-27 08:01 | Day surgery (SDC) | payer MEDICARE, SELFPAY ==
[2025-08-27] VITALS (7 sets, daily range): BP systolic 91–130; BP diastolic 49–78; PULSE 51–78; RESP 16–18; TEMP 36.1–36.9; O2SAT 94–98; BMI 40.8
[2025-08-27] MEDS: Lidocaine 1% (30 ml sdv) 30 ML Vial (06:58)
[2025-08-27] MEDS: 0.9% Normal Saline (Pres. free 10 ML Vial (07:16)
[2025-08-27] MEDS: Lactated Ringers 1,000 ML 15 ML IV (08:28)
--- NOTE | 2025-08-27 08:30 | PRE.ANES_ITS ---
ASA Classification* ASA Classification ASA Classification: 3 Assessment & Plan Anesthesia* Anesthesia Assessment Anesthesia Assessment: Discussed sedation and/or anesthesia options, risks, benefits, and alternatives with patient/parents/legal guardian/POA. Questions invited. The patient/parents/legal guardian/POA seems to understand and agrees to proceed with anesthesia plan. Reviewed the physical assessment, medical history, allergy history and patient home medications list prior to surgery/procedure/anesthetic and documented any changes. Performed airway and anesthesia risk assessments. Anesthesia Type Anesthesia Type: MAC Anesthesia Focused Assessment* Temperature: 97 F Pulse Rate: 62 Blood Pressure: 130/57 Respiratory Rate: 16 Pulse Ox: 94 Airway Assessment Mouth opens: >3 cm Mallampati Score: II Labs Anesthesia Preop lab: CBC WBC, (4.4-11.0) 8.0 K/mm3 06/18/24, 05:15 RBC, (4.2-5.4) 4.42 M/mm3 06/18/24, 05:15 Hgb, (12.0-15.0) 14.6 g/dL 06/18/24, 05:15 Hct, (37-47) 44.3 % 06/18/24, 05:15 Plt Count, (150-450) 202 K/mm3 06/18/24, 05:15 CHEMISTRY Potassium, (3.5-5.1) 3.6 mmol/L 06/18/24, 05:15 Sodium, (136-145) 142 mmol/L 06/18/24, 05:15 Magnesium, (1.6-2.6) 2.1 mg/dL 01/09/23, 14:50 BUN, (7-18) 25 mg/dL H 06/18/24, 05:15 Creatinine, (0.55-1.02) 0.93 mg/dL 06/18/24, 05:15 Glucose, (74-106) 89 mg/dL 06/18/24, 05:15 POC Glucose, (74-106) 83 mg/dL 06/15/24, 15:01 TSH, (0.358-3.74) 2.44 uIU/mL 06/15/24, 17:23 COAG Pre-Assessment Diagnosis/Proposed Procedure Planned Operative Procedure(s): Block, Caudal Anesthesia History Anesthesia History - manager advanced: Anesthesia History - manager advanced Hx Hospitalization No 08/22/25 13:29 Any Problems With Anesthesia No 08/22/25 13:29 Cholinesterase deficiency No 08/22/25 13:29 You/Your Family Experience No 08/22/25 13:29 fever (hyperthermia) with Relationship Recent Exposure to Contagious No 08/27/25 08:20 Disease Does patient have nerve No 08/22/25 13:29 stimulator Patient instructed to have device shut off --Does patient have Pacemaker No 08/27/25 08:20 or ICD? When Was Last Pacemaker Check QUESTION #4 FULL TEXT: You/Your Family Experience fever (hyperthermia) with Anesthesia Last Oral Intake Last Oral intake: Last Oral Intake NPO since 21:00 08/27/25 08:20 Meds taken in AM with sips of water? Meds patient instructed to take am of surgery PONV PONV - manager advanced: PONV - manager advanced Female Yes 08/22/25 13:29 HX of Motion Sickness No 08/22/25 13:29 HX of N/V After Surgery No 08/22/25 13:29 Non-Smoker Yes 08/22/25 13:29 Duration of Surgery greater No 08/22/25 13:29 than 60 minutes Number of Risk Factors 2 08/22/25 13:29 PONV Score Moderate Risk 08/22/25 13:29 Height & Weight Height & Weight: Anesthesia: Height & Weight Height 5 ft 2 in 08/27/25 08:20 Weight: 101.151 kg 08/27/25 08:20 Body Mass Index (BMI) 40.8 08/27/25 08:20 Respiratory Assessment Respiratory Assessment - manager advanced: Respiratory Tract Infection Hx - manager advanced Hx Respiratory Tract Infection No 08/22/25 13:29 STOP Sleep Apnea STOP Sleep Apnea - manager advanced: STOP Sleep Apnea - manager advanced Hx Hypertension Yes: CONTROLLED ON MED 08/22/25 13:29 Hx Sleep Apnea Yes: NO MACHINE USED 08/22/25 13:29 CPAP No 08/22/25 13:29 BIPAP No 08/22/25 13:29 Do you snore loudly (louder than talking or can be heard Do you often feel tired/ fatigued/ sleepy during daytime? Has anyone observed you stop breathing during sleep? STOP Results Positive 08/22/25 13:29 QUESTION #5 FULL TEXT : Do you snore loudly (louder than talking or can be heard through closed doors)? 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 Specify any problems Hx of Preganancy in last 3 No 08/22/25 13:29 Months Nurse Filling Out Transfusion VCHRISTIN 08/22/25 13:29 & Questions: Date: 08/22/25 08/22/25 13:29 Time: 13:30 08/22/25 13:29 Patient unable to answer at this time (ie. confused, unrespo /Reproduction History /Reproductive History - manager advanced: /Reproductive Hx- manager advanced Hx Now No 08/22/25 13:29 Gestational Age (in weeks): EDC: Hx Hx Para Hx Section SAB No 08/22/25 13:29 Active Medications Active Medications: Current Medications Generic Name Dose Route Start Last Admin Trade Name Freq PRN Reason Stop Dose Admin Lactated Ringer's 1,000 mls @ 15 mls/hr 08/27/25 08:15 08/27/25 08:28 IV 15 mls/hr .Q48H SUNG Administration PFSH Medical History Non-smoker Pain Loss of hearing Wears glasses Post-menopausal Depression Anxiety Alcohol use Arthritis Bladder disease Low iron DVT (deep venous thrombosis) Restless legs Back pain Difficulty swallowing History of IBS Former smoker BiPAP (biphasic positive airway pressure) dependence COPD (chronic obstructive pulmonary disease) Shortness of breath on exertion Leg cramps History of pain when walking History of echocardiogram History of stress test Cardiology follow-up encounter Hypothyroidism Pulmonary HTN CAD (coronary artery disease) Strain of right groin Acute right hip pain History of heart attack HTN (hypertension) Home Medications ?Medication ?Instructions ?Recorded ?Last Taken ?Type levothyroxine 175 mcg tablet 175 mcg PO DAILY Thyroid 05/31/15 08/26/25 History sertraline 100 mg tablet 150 mg PO QHS Depression 01/20/25 History albuterol sulfate 90 mcg/actuation 2 puff inhalation Q 4H PRN PRN 01/09/23 03/13/24 History aerosol inhaler BREATHING aspirin 81 mg chewable tablet 81 mg PO DAILY HEART HEA LTH 01/09/23 08/26/25 History atorvastatin 40 mg tablet 40 mg PO QHS CHOLESTEROL 02/2801/20/25 History budesonide-formoterol HFA 160 2 puff inhalation BID MT N SOB 01/09/23 01/20/25 History mcg-4.5 mcg/actuation aerosol inhaler (Symbicort) clopidogrel 75 mg tablet 75 mg PO DAILY anti platelet 01/09/23 08/19/25 History lisinopril 20 mg tablet 30 mg PO DAILY HTN 01/09/23 08/26/25 History gabapentin 600 mg tablet 300 mg (1/2 x 600 mg) PO QHS 06/19/24 01/20/25 Rx Neuropathy 30 days #0 tabs oxycodone-acetaminophen 5 mg-325 1 tab PO TID PRN PRN pain 07/19/24 01/21/25 History mg tablet ropinirole 2 mg tablet,extended 3 mg PO QHS Restless l egs 08/22/25 Unknown History release 24 hr tolterodine 2 mg tablet (Detrol) 2 mg PO QDAY 08/22/25 Unknown History Allergy/AdvReac Type Severity Reaction Status Date / Time metaxalone (From Skelaxin) Allergy Intermediate Itching Verified 08/27/25 08:19 adhesive Allergy Hives Verified 08/27/25 08:19 Surgical History Hx of surgical procedure Hx of right cataract extraction Hx of left cataract extraction Hx of total knee arthroplasty Hx of total shoulder replacement Hx of appendectomy Hx laparoscopic cholecystectomy Hx of rotator cuff surgery Hx of elbow surgery History of back surgery Stented coronary artery Social History Smoking Status: Former smoker Review of Systems (Anesthesia) ROS Narrative System reviewed and no additional complaints, except as documented.
--- NOTE | 2025-08-27 08:40 | RAD_ITS ---
EXAM: XR Lumbosacral Spine, 1 Views CLINICAL INDICATION: CAUDAL BLOCK TECHNIQUE: lateral views of the lumbar spine and sacrum. COMPARISON: No relevant prior studies available. FINDINGS: Spot fluoroscopic image was obtained. Total fluoroscopy time 5.5 seconds. Total radiation dose 4.85 mGy. RAD/Spine 1 View Any Level IMPRESSION: Fluoroscopic guidance was used intraoperatively. Please refer to operative not e for further details. Reading Location: [id number]
--- NOTE | 2025-08-27 09:12 | PCM.POST.ANE ---
Anesthesia: Postop Eval I Current Vital Signs Temperature: 98 F Pulse Rate: 78 Blood Pressure: 118/78 Respiratory Rate: 18 Pulse Ox: 98 Assessment Airway patent: Yes Spontaneous unlabored respirations: Yes nausea: No Vomiting: No Anesthesia Complication: No Fluid Hydration Crystalloid volume administer (ml): 100 Total IV fluid infused: 100 Progress Note Anesthesia document: Postop Eval 1 completed: Yes
--- NOTE | 2025-08-27 09:33 | OP.PCM_ITS ---
Operative Report (Standard) Operative Information Date of Procedure: 08/27/25 Pre-Operative Diagnosis: Lumbosacral radiculopathy, lumbosacral degenerative disc disease, lumbosacral spinal stenosis Post-Operative Diagnosis: Lumbosacral radiculopathy, lumbosacral degenerative disc disease, lumbosacral spinal stenosis Surgery/Procedure Performed: Diagnostic/therapeutic caudal epidural steroid injection under fluoroscopic guidance. adjunct teacher: No Type of Anesthesia: Local MAC RN Documented Start/Stop Times: Operation Date: 08/27/25 09:40 Case Time Into Pre-Op 08/27/25 08:11 Anesthesia Start 08/27/25 09:00 Into Room 08/27/25 09:00 Procedure Start 08/27/25 09:07 Procedure End 08/27/25 09:09 Anesthesia End 08/27/25 09:12 Out of Room 08/27/25 09:12 Into Recovery 08/27/25 09:15 Into Phase II Recovery 08/27/25 09:27 Out of Recovery 08/27/25 09:27 Procedure Start Time: 09:33 Procedure Stop Time: :33 Select all DRAINS/GRAFTS/IMPLANTS that apply: None Estimated Blood Loss: 1 Specimen collected: No Description of surgery: PROCEDURE PERFORMED: Diagnostic/therapeutic caudal epidural steroid injection under fluoroscopic guidance. ANESTHESIA: MAC. BLOOD LOSS: Minimal. COMPLICATIONS: None. DESCRIPTION OF PROCEDURE: History and physical of today was reviewed. Risks and benefits of the procedure were explained. The patient understood and agreed to proceed. Informed consent was obtained. IV inserted per routine protocol. The patient was taken to the operating room and placed in the prone position with a pillow positioned underneath the abdomen. The lower back and tailbone area was prepped and draped in a sterile fashion using iodine x3. Under fluoroscopy guidance on a lateral view, the caudal space was identified. The skin and subcutaneous tissue was anesthetized with approximately 3 mL of 1% lidocaine using a 25-gauge regular needle. Under direct visualization with fluoroscopy, using a 22-gauge 3-1/2-inch spinal needle, the needle was advanced via the skin through the sacral hiatus. The tip of the needle was passed through the sacrococcygeal ligament and advanced to approximately S4 area. After negative aspiration of blood or CSF, a total of 3 mL of contrast was injected to confirm correct placement of the needle as well as cephalad spread. The spread was followed to approximately L5 area. After confirmation on AP as well as lateral view and repeated negative aspiration, a total of 15 mL of preservative-free 0.125% Marcaine with 80 mg of Depo-Medrol was injected easily. The needle was then removed intact. The patient experienced no sign or symptoms of intrathecal or intravascular injection. The patient experienced no paresthesia. The procedure was completed without any apparent difficulty or any complications. The patient appeared to tolerate it well. ASSESSMENT AND PLAN: This is a 70-year-old female with lumbosacral radiculopathy, lumbosacral degenerative disc disease, lumbosacral spinal stenosis, status post diagnostic/therapeutic caudal epidural steroid injection under fluoroscopic guidance, patient will continue her current medications, patient will follow-up in approximately 2 weeks for reevaluation. Surgical Findings: 0 Complications Complications: No Admit VTE Documentation VTE Present on Admission: No VTE Mechan Device Prophylaxis: None VTE Pharm Prophylaxis ordered?: No
--- NOTE | 2025-08-27 12:39 | POSTOPAN2_ITS ---
Anesthesia Postop Eval I Sum Postop Eval Completion status Anesthesia document: Postop Eval 1 completed: Yes Anesthesia Postop Eval I Summary Anesthesia Postop Eval I Summary: Anesthesia Postop Eval I: Assessment Summary Airway patent Yes 08/27/25 09:12 [email or web address] Spontaneous unlabored Yes 08/27/25 09:12 [email or web address] respirations Mental status nausea No 08/27/25 09:12 [email or web address] Vomiting No 08/27/25 09:12 [email or web address] Anesthesia Postop Eval I: Fluid Summary Crystalloid volume administer 100 08/27/25 09:12 [email or web address] (ml) Colloids volume administered ( ml) Blood Product volume administered (ml) Total IV fluid infused 100 08/27/25 09:12 [employer] M[email or web address] Anesthesia Postop Eval I: Summary Notes Anesthesia Complication No 08/27/25 09:12 [employer] M[email or web address] Anesthesia Complication Comment: Post-operative progress note Anesthesia: Postop Eval II Evaluation Mental status: Awake Pain Level: 0 nausea: No Vomiting: No
--- NOTE | 2025-08-27 12:39 | PCM.POSTANE2 ---
Anesthesia Postop Eval I Sum Postop Eval Completion status Anesthesia document: Postop Eval 1 completed: Yes Anesthesia Postop Eval I Summary Anesthesia Postop Eval I Summary: Anesthesia Postop Eval I: Assessment Summary Airway patent Yes 08/27/25 09:12 [email or web address] Spontaneous unlabored Yes 08/27/25 09:12 [email or web address] respirations Mental status nausea No 08/27/25 09:12 [email or web address] Vomiting No 08/27/25 09:12 [email or web address] Anesthesia Postop Eval I: Fluid Summary Crystalloid volume administer 100 08/27/25 09:12 [email or web address] (ml) Colloids volume administered ( ml) Blood Product volume administered (ml) Total IV fluid infused 100 08/27/25 09:12 [email or web address] Anesthesia Postop Eval I: Summary Notes Anesthesia Complication No 08/27/25 09:12 [email or web address] Anesthesia Complication Comment: Post-operative progress note Anesthesia: Postop Eval II Evaluation Mental status: Awake Pain Level: 0 nausea: No Vomiting: No
== END 2025-08-27 09:56 | disposition home or self-care (01) ==
LOC: SDC 08:03 → AC 08:06
PROVIDERS: PCP Internal Medicine; Referring Provider Anesthesiology Pain Medicine; Visit Provider Anesthesiology Pain Medicine
PROC: 3E0S3BZ Introduction of Anesthetic Agent into Epidural Space, Percutaneous Approach (ICD-10-PCS; CPT 62282; principal; 2025-08-27 09:35)
DX: M51.17 Intervertebral disc disorders with radiculopathy, lumbosacral region (principal); J44.9 Chronic obstructive pulmonary disease, unspecified; M48.07 Spinal stenosis, lumbosacral region; I25.10 Atherosclerotic heart disease of native coronary artery without angina pectoris; G47.33 Obstructive sleep apnea (adult) (pediatric); F41.9 Anxiety disorder, unspecified; Z79.51 Long term (current) use of inhaled steroids; Z79.82 Long term (current) use of aspirin; Z79.899 Other long term (current) drug therapy; Z79.02 Long term (current) use of antithrombotics/antiplatelets; Z87.891 Personal history of nicotine dependence
CPT/HCPCS: 62323; 01992; 64483; 72020; J2405